=== PATIENT | female | born 1950 | race Caucasian/White ===

== ENCOUNTER 2020-01-18 09:19 | Outpatient (CLI) | payer MEDICARE, MEDICAID, SELFPAY ==
[2020-01-18 09:41] LABS: Basophils # 0.1 10^3/uL (0.0-0.1); Hemoglobin 13.1 g/dL (11.5-15.3); Lymphocytes # 1.9 10^3/uL (0.8-4.8); Lymphocytes % 22.1 %; Mean Corpuscular Hemoglobin 28.5 pg (28.0-34.0); Mean Corpuscular Volume 89.3 fL (81-99); Mean Platelet Volume 8.8 fL (7.4-10.4); Monocytes # 0.5 10^3/uL (0.2-0.9); Neutrophils # 6.2 10^3/uL (1.8-7.7); Neutrophils % 70.4 %; Nucleated Red Blood Cells % 0 %; Platelet Count 450 10^3/cmm (130-400); Red Blood Count 4.59 10^6/uL (4.1-5.3); Red Cell Distribution Width 13.1 % (12.1-15.1); White Blood Count 8.8 10^3/uL (4.0-10.0)
[2020-01-18 09:55] LABS: Anion Gap 16.8 (5-19); Blood Urea Nitrogen 13 mg/dL (8-23); Calcium 9.6 mg/dL (8.5-10.5); Carbon Dioxide 25 mmol/L (22-29); Chloride 97 mmol/L (98-107); Glucose 108 mg/dL (65-115); Osmolality Calculated 275 mOsm/kg (285-295); Potassium 4.8 mmol/L (3.5-5.1); Sodium 134 mmol/L (136-145)
--- NOTE | 2020-01-18 10:13 | ECG_ITS ---
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 Measurements Intervals [place] Rate: 67 P: 57 RI: 191 QRS: 53 QRSD: 77 T: 58 QT: 393 QTc: 417 Interpretive Statements SINUS RHYTHM Compared to ECG 02/21/2017 09:36:56 No significant changes Electronically Signed On 01-19-2020 13:56:45 CDT by Dennise Duarte M.D. [id number] f
== END 2020-01-18 09:20 | disposition home or self-care (01) ==
PROVIDERS: Family Provider Family Medicine; PCP Family Medicine; Visit Provider Specialist
DX: Z01.810 Encounter for preprocedural cardiovascular examination (principal)
CPT/HCPCS: 36415; 80048; 85025; 93005

== ENCOUNTER 2020-11-03 13:11 | Outpatient (CLI) | payer MEDICARE, MEDICAID, SELFPAY ==
--- NOTE | 2020-11-03 13:15 | MM_ITS ---
WS: [id number] BILATERAL DIGITAL SCREENING MAMMOGRAPHY WITH CAD CLINICAL INFORMATION: SCREENING HISTORY: Screening mammogram. No current complaints. COMPARISON: TECHNIQUE: Bilateral CC and MLO views. FINDINGS: The breasts are composed of heterogeneous fibroglandular density tissue, which can limit the detectio n of small underlying mass lesions. No suspicious mass, asymmetry, calcifications, or architectural d istortion. No evidence of malignancy. Stable bilateral lucent centered and dystrophic calcifications. MM/[place] [id number] IMPRESSION: BI-RADS: 2-Benign FOLLOW UP: 1 Year Follow-up Recommend return to annual screening mammography.
== END 2020-11-03 13:12 | disposition home or self-care (01) ==
LOC: RADSHAW 13:14
PROVIDERS: PCP Family Medicine; Visit Provider Family Medicine
DX: Z12.31 Encounter for screening mammogram for malignant neoplasm of breast (principal)
CPT/HCPCS: 77067

== ENCOUNTER 2020-12-03 09:04 | Emergency (ER) | payer MEDICARE, MEDICAID, SELFPAY ==
[2020-12-03] VITALS (7 sets, daily range): BP systolic 133–149; BP diastolic 63–75; PULSE 67–83; RESP 18–21; TEMP 36.6; O2SAT 89–95; BMI 28.8
--- NOTE | 2020-12-03 09:32 | XR_ITS ---
WS: [id number] Portable AP upright chest, 12/03/2020 Clinical Data: sob Comparison: PA and lateral chest, 08/13/2018. Findings: No nodules or masses are seen. The heart is enlarged. The pulmonary vascularity is not incr eased. No pneumothorax is seen. There is patchy opacity in the left lower lobe which could represent minimal pneumonia or atelectasis. There is a small left pleural effusion. There is calcification in the ascending aorta wall. Monitor leads are on the chest wall. There is an anterior cervical disc fus ion. There is minimal calcification over the right greater tuberosity. XR/XR chest 1V portable [id number] Impression: 1. Cardiomegaly with atherosclerotic changes of the before meals and aorta. 2. Patchy opacity in left lower lobe with small left effusion which could repre sent minimal pneumonia and/or atelectasis.
--- NOTE | 2020-12-03 09:32 | ECG_ITS ---
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 Measurements Intervals [place] Rate: 68 P: 54 WA: 169 QRS: 57 QRSD: 78 T: 66 QT: 392 QTc: 419 Interpretive Statements SINUS RHYTHM Compared to ECG 01/18/2020 10:14:56 No significant changes Electronically Signed On 12-04-2020 10:06:57 CDT by Dennise Duarte M.D. [id number]
--- NOTE | 2020-12-03 09:36 | W.ED.SOB ---
HPI - SOB/Dyspnea General: Chief Complaint: Shortness of Breath/Dyspnea Stated Complaint: DIFFICULTY BREATHING Time Seen by Provider: 12/03/20 09:29 History of Present Illness: HPI Narrative: 70-year-old female presents with some shortness of breath. Patient reports that she was battling some allergies yesterday patient has a history of COPD and is on inhalers. She reports that she started developing some chest tightness with shortness of breath yesterday. Patient reports she has had increased cough. No fever or chills. No chest pain. [facility] ED PFSH: Social History (Updated 12/03/20 @ 09:28 by Brian Garrido RN) Smoking and tobacco status: current every day smoker cigarettes Packs smoked per day: 0.5 Alcohol intake: current Alcohol intake frequency: holidays/special occasions only Course Vital Signs: Vital signs: Vital Signs Temperature 97.9 F 12/03/20 09:25 Pulse Rate 73 12/03/20 11:01 Respiratory Rate 21 H 12/03/20 11:01 Blood Pressure 149/75 12/03/20 11:01 Pulse Oximetry 93 12/03/20 11:01 MDM - SOB/Dyspnea MDM Narrative: Medical decision making narrative: Patient is feeling significantly better following her breathing treatment. Patient with beta white count and slight infiltrate left lower lobe. We will treat her with antibiotics, steroids. She will be discharged home. I recommend she follow with her primary care provider in 3 to 4 days for recheck of her symptoms. Lab Data: Attestation: I reviewed the patient's lab results. Labs: Lab Results 12/03/20 12/03/20 Range/Units 09:51 09:51 WBC 14.1 H (4.0-10.0) 10^3/ uL RBC 4.38 (4.1-5.3) 10^6/u L Hgb 13.3 (11.5-15.3) g/dL Hct 39.5 (37.0-47.0) % MCV 90.2 (81-99) fL MCH 30.4 (28.0-34.0) pg MCHC 33.7 (30.0-36.0) g/dL RDW 13.7 (12.1-15.1) % Plt Count 300 (130-400) 10^3/c mm MPV 9.4 (7.4-10.4) fL Neut % (Auto) 81.2 % Lymph % (Auto) 11.7 % [place] % (Auto) 6.0 % Eos % (Auto) 0.0 % Baso % (Auto) 0.6 % Neut # (Auto) 11.42 H (1.8-7.7) 10^3/u L Lymph # (Auto) 1.7 (0.8-4.8) 10^3/u L [place] # (Auto) 0.8 (0.2-0.9) 10^3/u L Eos # (Auto) 0.0 (0.0-0.8) 10^3/u L Baso # (Auto) 0.1 (0.0-0.1) 10^3/u L Nucleated RBC % (a uto) 0 % Nucleated RBCs # 0.0 /100WBC Sodium 137 (136-145) mmol/L Potassium 4.7 (3.5-5.1) mmol/L Chloride 100 (98-107) mmol/L Carbon Dioxide 26 (22-29) mmol/L Anion Gap 15.7 (5-19) BUN 13 (8-23) mg/dL Creatinine 0.6 (0.5-0.9) mg/dL GFR Calculation Not Reportable Glucose 135 H (65-115) mg/dL Calculated Osmolal ity 286 (285-295) mOsm/k g Calcium 8.6 (8.5-10.5) mg/dL Magnesium 2.1 (1.7-2.3) mg/dL Total Bilirubin 0.9 (0.15-1.2) mg/dL AST 13 (0-32) U/L ALT 16 (0-33) U/L Alkaline Phosphata se 88 (35-105) IU/L Total Protein 6.9 (6.6-8.7) g/dL Albumin 4.0 (3.5-5.2) g/dL Globulin 2.9 (1.3-4.6) g/dL Imaging Data^: CXR: Attestation: I personally reviewed and interpreted this imaging study as follows: My impression: mild infiltrate LLL Radiologist's impression: Portable AP upright chest, 12/03/2020 Clinical Data: sob Comparison: PA and lateral chest, 08/13/2018. Findings: No nodules or masses are seen. The heart is enlarged. The pulmonary vascularity is not increased. No pneumothorax is seen. There is patchy opacity in the left lower lobe which could represent minimal pneumonia or atelectasis. There is a small left pleural effusion. There is calcification in the ascending aorta wall. Monitor leads are on the chest wall. There is an anterior cervical disc fusion. There is minimal calcification over the right greater tuberosity. XR/XR chest 1V portable [id number] Impression: 1. Cardiomegaly with atherosclerotic changes of the before meals and aorta. 2. Patchy opacity in left lower lobe with small left effusion which could represent minimal pneumonia and/or atelectasis. EKG Data^: EKG 1: Attestation: I personally reviewed and interpreted this EKG as follows: EKG Interpretation Date: 12/03/20 EKG interpretation time: 10:03 Interpretation: HR 68, nsr, no st changes, normal ecg Discharge Plan Discharge Patient Disposition: Home Clinical Impression: Community acquired pneumonia Qualifiers: Laterality: left Lung location: lower lobe of lung Qualified Code(s): J18.9 - Pneumonia, unspecified organism Condition: Stable Prescriptions: New azithromycin 250 mg tablet See Rx Instructions .ROUTE .COMPLEX Qty: 6 RF: 0 prednisone 20 mg tablet 40 mg PO DAILY 3 Days Qty: 6 RF: 0 No Action paroxetine HCl 30 mg tablet 30 mg PO DAILY RF: 0 montelukast [Singulair] 10 mg tablet 10 mg PO DAILY RF: 0 lorazepam 0.5 mg tablet 0.5 mg PO DAILY PRN (Reason: sleep) RF: 0 budesonide-formoterol [Symbicort] 160-4.5 mcg/actuation HFA aerosol inhaler 2 puff INHALATION BID RF: 0 simvastatin 40 mg tablet 40 mg PO DAILY RF: 0 famotidine [Pepcid] 20 mg tablet 20 mg PO BID RF: 0 benazepril 40 mg tablet 40 mg PO DAILY RF: 0 aspirin [Adult Aspirin Regimen] 81 mg tablet,delayed release (DR/EC) 81 mg PO DAILY RF: 0 Otezla 30 mg tablet 30 mg PO BID RF: 0 albuterol sulfate [Ventolin HFA] 90 mcg/actuation HFA aerosol inhaler 2 puff INHALATION Q6H PRN (Reason: shortness of breath or wheezing) RF: 0 nitroglycerin [Nitrostat] 0.4 mg tablet, sublingual 0.4 mg SUBLINGUAL Q5M PRN (Reason: chest pain) RF: 0 metoprolol tartrate 25 mg tablet 12.5 mg PO BID Qty: 90 RF: 3 isosorbide mononitrate 30 mg tablet extended release 24 hr 30 mg PO DAILY Qty: 90 RF: 3 Discharge Orders: Discharge ED (Routine); Ordered 12/03/20 Ordered By: Issac Clinton Referrals: Cezar oLrenz MD [Primary Care Provider] - Discharge Diet: Usual diet Discharge Activity: Resume usual activity Patient Instructions: Community-acquired Pneumonia (ED), Opioid Safety Activity Restrictions/Additional Instructions: Follow-up with your primary care provider in 3 to 4 days to recheck your symptoms Use your albuterol nebulizer every 4 hours x24 hours then as needed Coding Level of Care Code ED Punch Operator for Jo Ann Reeves
[2020-12-03 10:01] LABS: Basophils # 0.1 10^3/uL (0.0-0.1); Basophils % 0.6 %; Hematocrit 39.5 % (37.0-47.0); Hemoglobin 13.3 g/dL (11.5-15.3); Lymphocytes # 1.7 10^3/uL (0.8-4.8); Lymphocytes % 11.7 %; Mean Corpuscular HGB Conc 33.7 g/dL (30.0-36.0); Mean Corpuscular Hemoglobin 30.4 pg (28.0-34.0); Mean Corpuscular Volume 90.2 fL (81-99); Mean Platelet Volume 9.4 fL (7.4-10.4); Monocytes # 0.8 10^3/uL (0.2-0.9); Neutrophils # 11.42 10^3/uL (1.8-7.7); Neutrophils % 81.2 %; Nucleated Red Blood Cells % 0 %; Platelet Count 300 10^3/cmm (130-400); Red Blood Count 4.38 10^6/uL (4.1-5.3); Red Cell Distribution Width 13.7 % (12.1-15.1); White Blood Count 14.1 10^3/uL (4.0-10.0)
[2020-12-03] MEDS: ipratropium-albuterol 3 mL Neb INHALATION (10:16)
[2020-12-03 10:33] LABS: Alanine Aminotransferase 16 U/L (0-33); Alkaline Phosphatase 88 IU/L (35-105); Anion Gap 15.7 (5-19); Aspartate Amino Transferase 13 U/L (0-32); Blood Urea Nitrogen 13 mg/dL (8-23); Calcium 8.6 mg/dL (8.5-10.5); Carbon Dioxide 26 mmol/L (22-29); Chloride 100 mmol/L (98-107); Globulin 2.9 g/dL (1.3-4.6); Glucose 135 mg/dL (65-115); Magnesium 2.1 mg/dL (1.7-2.3); Osmolality Calculated 286 mOsm/kg (285-295); Potassium 4.7 mmol/L (3.5-5.1); Sodium 137 mmol/L (136-145); Total Bilirubin 0.9 mg/dL (0.15-1.2); Total Protein 6.9 g/dL (6.6-8.7)
== END 2020-12-03 11:02 | disposition home or self-care (01) ==
PROVIDERS: Emergency Provider Student in an Organized Health Care Education/Training Program; PCP Family Medicine
DX: J18.9 Pneumonia, unspecified organism (principal); Z79.82 Long term (current) use of aspirin; F17.210 Nicotine dependence, cigarettes, uncomplicated
CPT/HCPCS: 71045; 80053; 83735; 85025; 93005; 94640; 96374; 99284; J2930; J7611

== ENCOUNTER 2020-12-31 10:03 | Outpatient (CLI) | payer MEDICARE, MEDICAID, SELFPAY ==
--- NOTE | 2020-12-31 10:15 | XR_ITS ---
WS: [id number] Exam: XR chest 2V* [id number] Date/Time of Exam: 12/31/2020 10:18 AM Reason For Exam: rule out pneumonia Comparison 12/03/2020. The lungs are fully expanded and clear. Heart size is top limits normal. No pleural effusions. The me diastinum and bony thorax are unremarkable. Anterior fusion of the lower cervical spine. XR/XR chest 2V* [id number] IMPRESSION: 1. No acute cardiopulmonary finding.
== END 2020-12-31 10:04 | disposition home or self-care (01) ==
LOC: RAD 10:13
PROVIDERS: PCP Family Medicine; Visit Provider Internal Medicine Pulmonary Disease
DX: J18.9 Pneumonia, unspecified organism (principal)
CPT/HCPCS: 71046

== ENCOUNTER → 2021-01-15 10:25 | Outpatient (BNVA) | payer MEDICARE, MEDICAID, SELFPAY | PROVIDERS: PCP Family Medicine; Visit Provider Internal Medicine Pulmonary Disease | DX: J44.9 Chronic obstructive pulmonary disease, unspecified (principal) | CPT/HCPCS: 87635 ==

== ENCOUNTER 2021-01-21 10:43 | Outpatient (CLI) | payer MEDICARE, MEDICAID, SELFPAY ==
--- NOTE | 2021-01-21 08:56 | PFTS_ITS ---
Date of Study:01/21/21 Date of Dictation: 01/23/2021 MECHANICS: Post bronchodilator Forced vital capacity (FVC) is reduced. Post bronchodilator Forced expiratory volume in one second (FEV1) is severely reduced 39% FEV1/FVC is reduced. There is no significant response to bronchodilators. FLOW VOLUME LOOP: Sloping of expiratory limb suggestive of severe air way obstruction LUNG VOLUMES: Total lung capacity (TLC) is normal. Residual volume (RV) is slightly increased suggestive of mild air trapping. DIFFUSING CAPACITY FOR CARBON MONOXIDE: severely reduced 33 % . INTERPRETATION: The pulmonary function tests consistent with severe obstructive ventilatory defect with no significant bronchodilator response. There is mild air trapping on lung volumes and severe gas transfer defect. Overall suggestive of moderate COPD likley emphysema. Clinical correlation recommended. MTDD
--- NOTE | 2021-01-21 10:53 | CT_ITS ---
WS: [id number] LDCT LUNG CANCER SCREENING HISTORY: Evaluate for lung nodules TECHNIQUE: Axial imaging performed from the apices to 1 cm below the costophrenic angles. Coronal and sagittal reformats are submitted with axial MIP series. All CT scans at [facility] use at least one of these dose optimization techniques: automated exposure control; mA and/or kV adjustment per patient size (includes targeted exams where dose is matched to clinical indication); or iterativ e reconstruction. DLP: 81.0 mGy.cm DIvol: 2.53 mGy COMPARISON: None available. Diagnostic quality: Satisfactory Lung Nodules: There are small micronodules scattered throughout both lungs predominantly within the p eriphery. No nodules greater than 3 mm are identified. Lungs: Hyperinflated lungs from emphysema. Benign granuloma in the anterior LEFT upper lobe. Heart: Moderately enlarged heart. No pericardial effusion. Extensive vascular calcifications in the n ative coronary arteries. Other findings: Dilated pulmonary artery. Extensive atherosclerosis within the aorta. Small mediastin al and hilar lymph nodes. Small esophageal hiatal hernia. Advanced degenerative changes in the disc i n the mid thoracic spine. CT/CT lung screening [id number] IMPRESSION: LUNG-RADS: 1S-Negative with Significant Findings FOLLOW UP: 12 Month: Continue annual screening with LDCT OTHER FINDINGS (S MODIFIER): Extensive atherosclerosis within the thoracic aort a and coronary arteries. Consider cardiovascular evaluation. Pulmonary hypertension.
[2021-01-21 11:45] VITALS: O2SAT 90; O2SAT 93
== END 2021-01-21 10:44 | disposition home or self-care (01) ==
LOC: RAD 10:46
PROVIDERS: PCP Family Medicine; Visit Provider Internal Medicine Pulmonary Disease
DX: Z12.2 Encounter for screening for malignant neoplasm of respiratory organs (principal); F17.200 Nicotine dependence, unspecified, uncomplicated; I70.0 Atherosclerosis of aorta; K44.9 Diaphragmatic hernia without obstruction or gangrene; J44.9 Chronic obstructive pulmonary disease, unspecified
CPT/HCPCS: 71271; 94060; 94726; 94729; 94760

== ENCOUNTER 2021-02-24 13:12 | Outpatient (CLI) | payer MEDICARE, MEDICAID, SELFPAY ==
--- NOTE | 2021-02-24 13:30 | CT_ITS ---
WS: [id number] CT ANGIOGRAPHY OF THE ABDOMINAL AORTA WITH RUNOFF TO THE ANKLES HISTORY: I73.9 - Peripheral vascular disease, unspecified TECHNIQUE: Arterial injection is performed during imaging to evaluate the aorta and runoff vessels to the ankles. MIP and volume rendering imaging has also been performed. All images are reviewed. All C T scans at [facility] use at least one of these dose optimization techniques: automated ex posure control; mA and/or kV adjustment per patient size (includes targeted exams where dose is match ed to clinical indication); or iterative reconstruction. Contrast: Omnipaque 350; 95 mL IV. DLP: 1398.99 mGycm COMPARISON: None available. Abdominal aorta: Scattered calcified plaque and intimal thickening within a nondilated aorta. Calcifi ed plaque at the origin of the celiac axis with no high-grade stenosis. Dense calcified plaque involv ing the proximal SMA with at least 50% stenosis. Calcified plaque at the origins of the renal arterie s bilaterally. Calcified plaque at the origin of the JAZMIN. RIGHT lower extremity arteries: Short segment area of high-grade stenosis involving the proximal and mid RIGHT common iliac artery. Multifocal areas of dense calcified plaque continues into the internal and external iliac arteries with significant stenoses. Dense calcified plaque with stenoses least 50 % in the common femoral artery. Small caliber SFA and deep profunda with dense calcified plaque with multiple areas of stenosis. Stenosis continues through Hans's canal and popliteal artery. There is three-vessel runoff to the ankle. Caliber of the arteries below the knee are small. LEFT lower extremity arteries: Heavy calcified plaque in the common, internal and external iliac barby neela with stenoses. Stenosis near 50-60%. Small caliber LEFT SFA. High-grade stenosis proximal SFA. M ultiple areas of stenosis throughout the SFA through Hans's canal. At times the lumen is poorly vis ualized and may be completely occluded with collaterals. At least 50% stenosis in the popliteal arter y. Small caliber but three-vessel runoff to the ankles. Liver and spleen are negative. Contracted gallbladder. Mildly prominent pancreatic duct with no mass identified. Adrenal glands are normal. Kidneys are enhancing normally. No adenopathy or ascites. Well -distended urinary bladder. Atrophic uterus and ovaries as expected. Sclerosis within the L3 vertebra l bodies probably from a healing osteoporotic compression fracture which is mild at 10%. CT/CT angio abd aorta runof [id number] IMPRESSION: 1. Numerous bilateral areas of significant stenosis involving the arteries of the lower extremities. 2. Greater than 70% stenosis RIGHT proximal and mid common iliac artery with additional multi focal areas of significant stenosis through the internal and e xternal iliac arteries. Multifocal stenoses continued through the femoral arter y and the popliteal artery. 3. At least moderate stenosis approaching 60% involving the LEFT common, inter nal and external iliac arteries. 4. Small caliber LEFT femoral artery with significant stenoses at multiple lev els throughout the SFA. There may be a few areas of occlusions which are obscur ed by the dense calcified plaque. 5. Small caliber arteries below the knees but the arteries are patent to the a nkles. 6. Moderate atherosclerotic changes within the abdominal aorta. Dense calcifie d plaque involving the celiac axis, SMA and renal arteries. Suspect a significa nt stenosis involving the SMA.
[2021-02-24 13:54] LABS: Blood Urea Nitrogen 14 mg/dL (8-23)
[2021-02-24] MEDS: iohexol 350 mg/mL 100 mL Btl IV (14:11)
== END 2021-02-24 13:13 | disposition home or self-care (01) ==
PROVIDERS: PCP Family Medicine; Visit Provider Internal Medicine Cardiovascular Disease
DX: I73.9 Peripheral vascular disease, unspecified (principal); I70.8 Atherosclerosis of other arteries
CPT/HCPCS: 75635; 82565; 84520; Q9967

== ENCOUNTER → 2021-05-15 09:11 | Outpatient (BNVA) | payer MEDICARE, MEDICAID, SELFPAY | PROVIDERS: Absent Provider Internal Medicine Cardiovascular Disease; PCP Family Medicine; Referring Provider Internal Medicine Cardiovascular Disease; Visit Provider Internal Medicine Cardiovascular Disease | DX: Z01.818 Encounter for other preprocedural examination (principal); I77.9 Disorder of arteries and arterioles, unspecified; Z20.822 Contact with and (suspected) exposure to COVID-19 | CPT/HCPCS: 80048; 85025; 85610; 87635; 94626 ==

== ENCOUNTER 2021-05-19 06:04 | Outpatient (CLI) | payer MEDICARE, MEDICAID, SELFPAY ==
[2021-05-19] VITALS (18 sets, daily range): BP systolic 130–183; BP diastolic 62–102; PULSE 63–71; RESP 14–20; TEMP 36.7; O2SAT 92–97; BMI 28.6
--- NOTE | 2021-05-19 06:30 | XACV_ITS ---
Wt: 76 kg BSA: 1.87 m2 Any Known Allergies: No known allergies Gender: Female : 1950 Exam Type: Invasive Peripheral Vascular Procedure(s): Procedure Description: Peripheral Cath Diagnostic Procedure Procedure Description: Abdominal aortic angiography Procedure Description: Lower extremities' angiography Exam Priority: Routine Dominique SCRUGGS; Jennifer Reason for self angiogram: Lifestyle limiting claudication, abnormal noninvasive studyAbdominal aortic angiogram: No aneurysm noted no significant stenosis of the abdominal aorta. Bilateral renal arteries were without any significant stenosis.Bilateral common iliac arteries without stenosis. Bilateral internal and external iliac arteries has luminal irregularities. Bilateral common femoral arteries luminal irregularities. Bilateral profunda femoral arteries has luminal irregularities. Right SFA has luminal irregularities. Left SFA has mild ostial disease however proximal segment is small caliber vessel with mild to moderate disease but with reasonably good flow. Bilateral popliteal artery has luminal irregularities. Bilateral tibioperoneal trunk has luminal irregularity. Right SFA is occluded in the distal segment. To good vessel runoff noted proximal right posterior tibial vessel has long moderate lesion, right peroneal artery has luminal irregularity. Overall good two-vessel runoff was noted on the right side. Left side three-vessel runoff was noted below the knee.. Recommendations 1-Return to inpatient for close monitoring and routine cath care 2-Risk factor modification for secondary prevention 3-Statin and aspirin 81 mg life--long, if tolerated 4-Continue optimal medical management 5-Follow up with Dr. Fox in four weeks and your primary care in 10 days. Hemodynamic Data Phase:Rest AO : 3.0 / -3.0 ( 0.0 ) @ 5:55:00 AM / ( 0.0 ) @ 5:56:00 AM 44.0 / -12.0 ( 4.0 ) @ 6:26:00 AM Access Site Site: Left Femoral artery Sheath Size: 6 Fr Hemost... Method: Mynx Hemost... Success: Successful Procedure Details Findings Procedure Consent Obtained. Admit Source: Out Patient. Pre-Procedure Time Out. Identified patient by full name and date of as verbalized by the patient/guarantor. Does the consent match the physician's order: Yes. Accurate & Complete Informed Consent: Yes. Inpatient/Outpatient History & Physical on Chart: Yes. If H&P is completed, is and addenduem needed: No; If yes, is the addendum complete: N/A. Visualize and Verify Site with Patient/Guarantor: N/A. Relevant Radiology Images available: N/A. The risks, benefits, and alternatives of sedation and/or procedure were discussed by physician. The patient agrees to continue. Procedure started. Correct patient, site and procedure confirmed by cath team. Current diagnosis: PAD, CLAUDICATION. PERRLA. 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 Lungs clear x 5 lobes. IV Site on Arrival: 20 gauge in the left anticubital. IV Fluids: 0.9% NaCl at KVO. 0 mL infused prior to labelling machine operator. Pre Procedural Pulses: bilateral dorsalis pedis was Doppled. Pre Procedural Pulses: bilateral radial was 3+. Pre Procedural Pulses: bilateral posterior tibial was 2+. Oxygen started at 2liters/min via nasal canula. bilateral groins was prepped with chloroprep then draped in the usual sterile fashion. Physician notified. Baseline sample Acquired. HR: 70 BPM. Baseline sample Acquired. HR: 66 BPM. Physician arrived. Physician scrubbed in. Time out performed with cath team. Immediate Pre-Procedure Time Out. Correct Patient: Yes; Correct Procedure: Yes; Correct Site: Yes; Correct Patient Position: Yes; Correct Supplies: Yes; Dried Flammable Prep: Yes; Blood Products Available: N/A;. Lidocaine 1% infiltrated to the left groin. Arterial access obtained with micropuncture set. A 5FrFr UF catheter in over wire. Pigtail postioned above the bifurcation of the iliacs. Aortagram performed @ 10 mL/sec for a total of 30 mL. Procedure started. Glidewire inserted. Glidewire advanced down the right SFA. UF catheter removed over the wire. Seeker inserted to the Popliteal Right. Glidewire removed. Hand Injection of the trifucation vessels using DSA technique. Hand Injection of the trifucation vessels using DSA technique. Seeker removed over the wire. Left common femoral selected and arteriogram with runoff performed @ 10 mL/sec for a total of 30 mL. Physician review of films. A Mynx was successful obtaining hemostatsis at the Left Femoral artery insertion site. Mynx placed without complications. No signs or symptoms of hematoma noted. Sterile dressing applied per usual sterile fashion. Post Procedure: Pulses reassessed and unchanged. PERRLA. 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 No VTE prophylaxis required. Medication's Wasted: Lidocaine 1% = 10 mL. Medication's Wasted: Heparin = 1000 units. Total IV fluids: 43 mL. Fluoro: 1:02. Contrast type used: Visipaque 320 mgI/mL, 100 mL bottle. [id number]. Post-op diagnosis: Luminal Irregularities of iliacs and sfa. 2 vessel below the knee runoff. Complications: None. Estimated blood loss: 5mL-10mL. Procedure completed. Patient transferred by bed to CPRU. Vital chart was stopped. Procedure Medications Start: 8:00 AM Stop: 8:00 AM Medication: Versed Amount: 1 mg Route: I.V. Start: 8:00 AM Stop: 8:00 AM Medication: Fentanyl Amount: 50 mcg Route: I.V. Start: 8:32 AM Stop: 8:32 AM Medication: Versed Amount: 1 mg Route: I.V. Start: 8:32 AM Stop: 8:32 AM Medication: Fentanyl Amount: 50 mcg Route: I.V. I, the attending physician, have reviewed and verified all procedure medications. Yes, all medications given per verbal order History/Risk Factors Hypertension: Yes Dyslipidemia: Yes Peripheral Arterial Disease (PAD): Yes Obesity: No Renal Disease: No Tobacco Use: Current/Recent(w/in 1 year) Prior Interventions PCI: No CABG: No Valve Surgery: No Report Signatures Finalized by Zen Fox MD on 05/31/2021 07:12 PM
[2021-05-19] MEDS: diphenhydrAMINE 50 mg Capsule PO (06:48)
--- NOTE | 2021-05-19 07:46 | W.PM.OPSFHP ---
Same Day Surgery H&P Indication for Procedure/HPI DATE OF PROCEDURE: May 19, 2021 CHIEF COMPLAINT/INDICATIONFOR SURGICAL PROCEDURE: Lifestyle limiting claudication more on right than left, abnormal CTA showing high-grade stenosis in iliacs and SFA bilaterally PREOP DIAGNOSIS: Lifestyle limiting claudication more on right than left PLANNED PROCEDRUE: Operation Date: 05/19/21 07:00 Proposed Procedures p Peripheral Diagnostic(Bilateral) - Zen Fox MD 71-year-old female past medical history significant for hypertension hyperlipidemia peripheral arterial disease COPD prior intervention to both legs in 2017 for worsening of claudication started on conservative management including cilostazol. Patient failed conservative management and continues to do worsen now to the point that she cannot walk barely more than 50 feet before she has to sit down and leg starts giving up. It is the reason patient today brought in for peripheral angiogram she is complaining more claudication on the right than left CT is suggestive of moderate to high-grade stenosis in the right common/external iliac and SFA. Today we will plan to go from the left common femoral and prior to fix the right side. Patient has been explained all risk benefit and alternative for the procedure. She understand risk for stroke contrast-induced nephropathy major minor bleed urgent emergent vascular surgery perforation infection hematoma. She would like to proceed with it. Medications/Allergies* Home Medications Medication Instructions Recorded Confirmed Type albuterol sulfate 90 mcg/actuation 2 puff INHALATION Q6H PRN 03/19/20 05/19/21 History aerosol inhaler apremilast 30 mg tablet 30 mg PO BID 03/19/20 05/19/21 History aspirin 81 mg tablet,delayed 81 mg PO DAILY 03/19/20 05/19/21 History release benazepril 40 mg tablet 40 mg PO DAILY 03/19/20 05/19/21 History lorazepam 0.5 mg tablet 0.5 mg PO DAILY PRN 03/19/20 05/19/21 History nitroglycerin 0.4 mg sublingual 0.4 mg SUBLINGUAL Q5M PRN 03/19/20 05/19/21 History tablet paroxetine HCl 30 mg tablet 30 mg PO DAILY 03/19/20 05/19/21 History simvastatin 40 mg tablet 40 mg PO DAILY 03/19/20 05/19/21 History cholecalciferol (vitamin D3) 25 25 mcg PO DAILY 12/31/20 05/19/21 History mcg (1,000 unit) capsule omega-3 fatty acids 1,000 mg 1,000 mg PO DAILY 02/09/21 05/19/21 History capsule Allergies/Adverse Reactions Allergy/AdvReac Type Severity Reaction Status Date / Time No Known Allergies Allergy Verified 02/11/21 09:32 Current Medications: Generic Name Dose Route Start Last Admin Trade Name Elizabet PRN Reason Stop Dose Admin Sodium Chloride 1,000 mls @ 50 mls/hr 05/19/21 06:30 05/19/21 06:48 Sodium Chloride 0.9% IV 05/20/21 02:29 Not Given .Q20H ONE Pertinent History/Comorbid Conditions* Medical History (Updated 02/09/21 @ 16:40 by Zen Fox MD) History of COPD History of hypertension Hx of sleep apnea Peripheral arterial occlusive disease Social History Quit status (tobacco): considering quitting Second hand smoke exposure: No Smoking risk assessment/counseling performed?: Yes Alcohol intake: current Alcohol intake frequency: holidays/special occasions only Lives independently: Yes Household members: none Marital status: Single Current occupational status: retired Pets and animals: No History of recent travel: No Current gender identity: Female Pertinent Exam Findings alert, oriented x 3 and clear to auscultation bilaterally Conscious Sedation Assessment PATIENT ASSESSED PRIOR TO SEDATION, WITH NO CHANGE NOTED: Yes AIRWAY EVAL/ANESTHESIA PLAN: ASA II, Risks, benefits & alternatives of sedation and/or procedure discussed and Patient agrees to continue as planned Recommendations Surgery/Procedure today Coding Level of Care Code Acute [employer]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
--- NOTE | 2021-05-19 09:14 | PC.NURSE ---
recovery received pt from chemistry lab instructor post diagnostic peripheral. closure device used to left groin and will be monitored per protocol. pt drowsy but able to be awakened. pt educated on left leg restrictions and will continue to educate throughout recovery. plan to recover for 4 hours and dc from cpru.
--- NOTE | 2021-05-19 09:31 | PC.NURSE ---
left groin has dry dressing. no hematoma noted. will continue to monitor throughout recovery.
== END 2021-05-19 13:02 | disposition home or self-care (01) ==
PROVIDERS: PCP Family Medicine; Visit Provider Internal Medicine Cardiovascular Disease
DX: I73.9 Peripheral vascular disease, unspecified (principal)
CPT/HCPCS: 36415; 75625; 75716; C1760; C1769; C1887; C1894; J1644; J2250; J3010; J7030; Q0163; Q9967

== ENCOUNTER 2021-06-18 11:01 | Outpatient (RCR) | payer MEDICARE, MEDICAID, SELFPAY | END 2021-07-17 23:59 | disposition home or self-care (01) | LOC: PULRHB 11:01 | PROVIDERS: PCP Family Medicine; Visit Provider Internal Medicine Pulmonary Disease | DX: J44.9 Chronic obstructive pulmonary disease, unspecified (principal) | CPT/HCPCS: 94618 ==

== ENCOUNTER 2021-07-18 06:00 | Outpatient (RCR) | payer MEDICARE, MEDICAID, SELFPAY | END 2021-08-17 23:59 | disposition home or self-care (01) | LOC: PULRHB 06:00 | PROVIDERS: PCP Family Medicine; Visit Provider Internal Medicine Pulmonary Disease | DX: J44.9 Chronic obstructive pulmonary disease, unspecified (principal) | CPT/HCPCS: 94626; G0424 ==

== ENCOUNTER 2021-08-18 06:00 | Outpatient (RCR) | payer MEDICARE, MEDICAID, SELFPAY | END 2021-09-14 23:59 | disposition home or self-care (01) | LOC: PULRHB 06:00 | PROVIDERS: PCP Family Medicine; Visit Provider Internal Medicine Pulmonary Disease | DX: J44.9 Chronic obstructive pulmonary disease, unspecified (principal) | CPT/HCPCS: 94626; G0424 ==

== ENCOUNTER 2021-09-15 06:00 | Outpatient (RCR) | payer MEDICARE, MEDICAID, SELFPAY | END 2021-10-15 23:59 | disposition home or self-care (01) | LOC: PULRHB 06:00 | PROVIDERS: PCP Family Medicine; Visit Provider Internal Medicine Pulmonary Disease | DX: J44.9 Chronic obstructive pulmonary disease, unspecified (principal) | CPT/HCPCS: 94626 ==

== ENCOUNTER → 2021-10-12 13:40 | Outpatient (BNVA) | payer MEDICARE, MEDICAID, SELFPAY | PROVIDERS: PCP Family Medicine; Visit Provider Nurse Practitioner Family | DX: I77.9 Disorder of arteries and arterioles, unspecified (principal); Z86.79 Personal history of other diseases of the circulatory system; Z87.891 Personal history of nicotine dependence | CPT/HCPCS: 99213; 99214 ==

== ENCOUNTER → 2021-12-10 12:51 | Outpatient (BNVA) | payer MEDICARE, MEDICAID, SELFPAY | PROVIDERS: PCP Family Medicine; Visit Provider Nurse Practitioner Family | DX: R06.00 Dyspnea, unspecified (principal); Z87.891 Personal history of nicotine dependence | CPT/HCPCS: 99214 ==

== ENCOUNTER 2021-12-29 03:26 | Observation (INO) | payer MEDICARE, MEDICAID, SELFPAY ==
[2021-12-29] VITALS (9 sets, daily range): BP systolic 94–230; BP diastolic 56–133; PULSE 71–95; RESP 16–20; TEMP 36.7–37.3; O2SAT 90–98; BMI 29.2
--- NOTE | 2021-12-29 03:46 | CTR_ITS ---
PROCEDURE INFORMATION: Exam: CT Abdomen And Pelvis Without Contrast Exam date and time: 12/29/2021 4:02 AM Age: 71 years old Clinical indication: Nausea; Abdominal pain; Localized; Left lower quadrant (llq); Additional info: Llq pain TECHNIQUE: Imaging protocol: Computed tomography of the abdomen and pelvis without contrast. Radiation optimization: All CT scans at this facility use at least one of these dose optimization techniques: automated exposure control; mA and/or kV adjustment per patient size (includes targeted exams where dose is matched to clinical indication); or iterative reconstruction. COMPARISON: [facility] Abdomen Limited 05/03/2019 8:12 AM RADIATION DOSE METRICS: Total DLP (mGy-cm): 1402.7 FINDINGS: Lungs: Minimal bibasilar atelectasis or scarring. Heart: Coronary artery calcifications. Liver: No acute abnormality on noncontrast imaging. Gallbladder and bile ducts: No acute abnormality. No calcified stones. No ductal dilation. Pancreas: No acute abnormality. No ductal dilation. Spleen: Punctate splenic calcified granulomas. Adrenal glands: No acute abnormality. No mass. Kidneys and ureters: No definite renal calculi. Moderate left hydroureteronephrosis without definite distal ureteral calculus. Stomach and bowel: No significant large or small bowel distention. No evidence of diverticulitis. Appendix: Grossly normal nondilated visualized appendix. Intraperitoneal space: No significant fluid collection. No free air. Vasculature: Vascular patency cannot be assessed on noncontrast imaging. Diffuse atherosclerotic vascular calcification. No aortic aneurysm. Lymph nodes: No enlarged lymph nodes. Urinary bladder: Unremarkable as visualized. No bladder calculi. Reproductive: Unremarkable as visualized. Bones/joints: Multilevel spondylosis, degenerative bony changes and chronic mild L3 superior endplate compression deformity. Soft tissues: No significant soft tissue abnormalities. CT/CT kidney stone [id number] IMPRESSION: 1. Moderate left hydroureteronephrosis without definite distal ureteral calculus. Differential diagnosis includes recent stone passage versus vesicoureteral reflux with possible pyelonephritis versus occult radiolucent distal urinary calculus, stricture or urothelial lesion. 2. Atherosclerotic vascular disease including coronary artery disease.
--- NOTE | 2021-12-29 03:52 | W.ED.ABDPA2 ---
HPI - Abdominal Pain General: Chief Complaint: Abdominal Pain Stated Complaint: abd pain Time Seen by Provider: 12/29/21 03:33 Source: patient Mode of arrival: ambulatory Limitations: no limitations History of Present Illness: 71-year-old female who states she been having left lower quadrant abdominal pain over the last 6 to 8 hours states that is worsened over the last 3 hours. States that sharp in nature in her left lower quadrant rates it an 8 out of 10 she has had some nausea no vomiting states seems to radiate into her groin. She denies any fever. Denies any recent illness denies any chest pain. Associated Symptoms: Denies chills, dysuria and fever(s) Review of Systems Const: Denies: fever(s), chills, body aches or change in appetite Eyes: Denies: blurry vision or eye discomfort ENMT: Denies: throat pain or dental pain Card: Denies: chest pain Resp: Denies: dyspnea GI: Reports: abdominal pain : Denies: dysuria Musc: Denies: neck pain or back pain Skin/Breast: Denies: rash Neuro: Denies: headache(s) Psych: Denies: depression Ganesh/Lymph: Denies: easy bruising All/Imm: Denies: urticaria PFSH ED PFSH: Medical History Encounter for screening for lung cancer History of COPD History of hypertension Hx of anxiety disorder Hx of colonic polyps Hx of gastroesophageal reflux (GERD) Hx of hyperlipidemia Hx of hyperparathyroidism Hx of irritable bowel syndrome Hx of sleep apnea Peripheral arterial occlusive disease Surgical History History of bilateral cataract extraction Hx of carpal tunnel repair Hx of colonoscopy Hx of esophagogastroduodenoscopy Hx of parathyroidectomy Hx of tubal ligation Social History Smoking and tobacco status: former smoker Quit status (tobacco): considering quitting Second hand smoke exposure: No Smoking risk assessment/counseling performed?: Yes Alcohol intake: current Alcohol intake frequency: holidays/special occasions only Lives independently: Yes Household members: none Marital status: Single Current occupational status: retired Pets and animals: No History of recent travel: No Current gender identity: Female Physical Exam Const: COMMON NORMALS: no acute distress, patient oriented x3 and healthy appearing HENMT: COMMON NORMALS: normocephalic and atraumatic HEAD & SCALP: normocephalic and atraumatic Eye: COMMON NORMALS: Equal, round and reactive pupils present and EOMs intact bilaterally PUPIL: Yes Equal, round and reactive pupils present Neck/C-Spine: COMMON NORMALS: full ROM and supple Chest: COMMONS NORMALS: normal inspection of the chest and normal palpation of entire chest wall Resp: COMMON NORMALS: normal respiratory effort, No retractions, No use of accessory muscles and clear to auscultation bilaterally AUSCULTATION: clear to auscultation bilaterally Cardio: COMMON NORMALS: regular rate, regular rhythm and No murmurs present (Cardio) RATE: regular rate RHYTHM: regular rhythm GI: COMMON NORMALS: Normal to inspection, nondistended, normoactive bowel sounds present, Soft to palpation and no masses PALPATION: Yes Soft to palpation and Yes Tenderness to palpation present (GI) Details: LLQ Extremity: COMMON NORMALS: normal to inspection and full ROM Neuro: COMMON NORMALS: patient oriented x3, moves all extremities and no focal motor deficits Psych: COMMON NORMALS: mental status grossly normal, Normal thought process present and cooperative THOUGHT PROCESS: Normal thought process present Skin: COMMON NORMALS: no rashes or lesions noted and no wounds GENERAL SKIN EXAM: no rashes or lesions noted Course Vital Signs: Vital signs: Vital Signs Temperature 98.2 F 12/29/21 03:46 Pulse Rate 87 12/29/21 04:32 Respiratory Rate 16 12/29/21 04:32 Blood Pressure 201/93 12/29/21 04:32 Pulse Oximetry 95 12/29/21 04:32 MDM - Abdominal Pain Medical Decision Making Patient presents with flank pain patient CT scan did show hydronephrosis with no definite stone. Patient either has a radiolucent stone or stricture or recently passed stone she does have an elevated white count along with appearance of a cystitis spoke to urologist he recommended admission with IV antibiotics to follow I spoke to hospitalist who is admitting urologist Dr. Aceves is consulted. Lab Data : 12/29/21 03:56 12/29/21 04:20 Labs/Radiology: Radiology Impressions Abdomen/Pelvis CT 12/29/21 03:46 IMPRESSION: 1. Moderate left hydroureteronephrosis without definite distal ureteral calculus. Differential diagnosis includes recent stone passage versus vesicoureteral reflux with possible pyelonephritis versus occult radiolucent distal urinary calculus, stricture or urothelial lesion. 2. Atherosclerotic vascular disease including coronary artery disease. Laboratory Results WBC 15.5 10^3/uL (4.0-10.0) H 12/29/21 03:56 RBC 4.98 10^6/uL (4.1-5.3) 12/29/21 03:56 Hgb 14.6 g/dL (11.5-15.3) 12/29/21 03:56 Hct 40.8 % (37.0-47.0) 12/29/21 03:56 MCV 81.9 fl (81-99) 12/29/21 03:56 MCH 29.3 pg (28.0-34.0) 12/29/21 03:56 MCHC 35.8 g/dL (30.0-36.0) 12/29/21 03:56 RDW 13.6 % (12.1-15.1) 12/29/21 03:56 Plt Count 239 10^3/cmm (130-400) 12/29/21 03:56 MPV 10.9 fL (7.4-10.4) H 12/29/21 03:56 Neut % (Auto) 79.4 % 12/29/21 03:56 Lymph % (Auto) 12.9 % 12/29/21 03:56 [place] % (Auto) 6.3 % 12/29/21 03:56 Eos % (Auto) 0.1 % 12/29/21 03:56 Baso % (Auto) 0.8 % 12/29/21 03:56 Neut # (Auto) 12.26 10^3/uL (1.8-7.7) H 12/29/21 03:56 Lymph # (Auto) 2.0 10^3/uL (0.8-4.8) 12/29/21 03:56 [place] # (Auto) 1.0 10^3/uL (0.2-0.9) H 12/29/21 03:56 Eos # (Auto) 0.0 10^3/uL (0.0-0.8) 12/29/21 03:56 Baso # (Auto) 0.1 10^3/uL (0.0-0.1) 12/29/21 03:56 Nucleated RBC % (auto) 0 % 12/29/21 03:56 Nucleated RBCs # 0.0 /100WBC 12/29/21 03:56 Sodium 136 mmol/L (136-145) 12/29/21 04:20 Potassium 4.4 mmol/L (3.5-5.1) 12/29/21 04:20 Chloride 96 mmol/L (98-107) L 12/29/21 04:20 Carbon Dioxide 28 mmol/L (22-29) 12/29/21 04:20 Anion Gap 16.4 (5-19) 12/29/21 04:20 BUN 16 mg/dL (8-23) 12/29/21 04:20 Creatinine 0.7 mg/dL (0.5-0.9) 12/29/21 04:20 GFR Calculation Not Reportable 12/29/21 04:20 Glucose 132 mg/dL (65-115) H 12/29/21 04:20 Calculated Osmolality 285 mOsm/kg (285-295) 12/29/21 04:20 Calcium 9.3 mg/dL (8.5-10.5) 12/29/21 04:20 Total Bilirubin 0.5 mg/dL (0.15-1.2) 12/29/21 04:20 AST 17 U/L (0-32) 12/29/21 04:20 ALT 18 U/L (0-33) 12/29/21 04:20 Alkaline Phosphatase 103 IU/L (35-105) 12/29/21 04:20 Total Protein 7.3 g/dL (6.6-8.7) 12/29/21 04:20 Albumin 4.4 g/dL (3.5-5.2) 12/29/21 04:20 Globulin 2.9 g/dL (1.3-4.6) 12/29/21 04:20 Lipase 18 U/L (13-60) 12/29/21 04:20 Urine Color Colorless (Yellow) 12/29/21 04:24 Urine Appearance Cloudy (CLEAR) 12/29/21 04:24 Urine pH 6.5 (5-7) 12/29/21 04:24 Ur Specific [place] 1.010 (1.005-1.030) 12/29/21 04:24 Urine Protein 1+ (Negative) H 12/29/21 04:24 Urine Glucose (UA) Norm (Normal) 12/29/21 04:24 Urine Ketones Negative (Negative) 12/29/21 04:24 Urine Blood 3+ (Negative) H 12/29/21 04:24 Urine Nitrate Negative (Negative) 12/29/21 04:24 Urine Bilirubin Neg (Negative) 12/29/21 04:24 Urine Urobilinogen Norm mg/dL (Negative) 12/29/21 04:24 Ur Leukocyte Esterase 2+ (Negative) H 12/29/21 04:24 Urine RBC Too numerous to cnt /hpf (0-2) H 12/29/21 04:24 Urine WBC Too numerous to cnt /hpf (0-5) H 12/29/21 04:24 Ur Squamous Epith Cells 0-4 /hpf (0-5) H 12/29/21 04:24 Amorphous Sediment Not Reportable 12/29/21 04:24 Urine Bacteria 2+ /hpf (NONE) H 12/29/21 04:24 Discharge Plan Discharge Condition: Stable Prescriptions: No Action omega-3 fatty acids [Fish Oil Concentrate] 1,000 mg capsule 1,000 mg PO DAILY 0RF cholecalciferol (vitamin D3) 25 mcg (1,000 unit) capsule 25 mcg PO DAILY 0RF gabapentin 300 mg capsule 300 mg PO BID 0RF vitamin B complex [B Complex-Vitamin B12] Tablet 1 tab PO DAILY 0RF Vicks NyQuil Cough 6.25-15 mg/15 mL solution 15 ml PO Q4H PRN0RF Rx Instructions: while awake hydrocodone-acetaminophen 7.5-325 mg tablet 1 tab PO TID PRN0RF paroxetine HCl 30 mg tablet 30 mg PO DAILY 0RF lorazepam 0.5 mg tablet 0.5 mg PO DAILY PRN (Reason: sleep) 0RF simvastatin 40 mg tablet 40 mg PO DAILY 0RF benazepril 40 mg tablet 40 mg PO DAILY 0RF aspirin [Adult Aspirin Regimen] 81 mg tablet,delayed release (DR/EC) 81 mg PO DAILY 0RF albuterol sulfate [Ventolin HFA] 90 mcg/actuation HFA aerosol inhaler 2 puff INHALATION Q6H PRN (Reason: shortness of breath or wheezing) 0RF ipratropium-albuterol 0.5 mg-3 mg(2.5 mg base)/3 mL solution for nebulization 3 ml inhalation Q6H PRN (Reason: shortness of breath or wheezing) Qty: 360 3RF metoprolol tartrate 25 mg tablet 12.5 mg PO BID Qty: 90 3RF nitroglycerin [Nitrostat] 0.4 mg tablet, sublingual 0.4 mg SUBLINGUAL Q5M PRN (Reason: chest pain) Qty: 25 3RF Rx Instructions: do not exceed 3 doses per episode nicotine (polacrilex) 2 mg gum 2 mg buccal Q2H PRN (Reason: nicotine cravings) Qty: 50 3RF nicotine 21-14-7 mg/24 hr patch, TD daily, sequential See Rx Instructions transdermal .COMPLEX Qty: 56 0RF Rx Instructions: apply 1-21 mg NICOTINE PATCH daily for 28 days; follow with 1-14 mg PATCH daily for 14 days, then 1-7mg PATCH daily for 14 days transdermal Breztri Aerosphere 160-9-4.8 mcg/actuation HFA aerosol inhaler 2 inh inhalation BID Qty: 10.7 3RF isosorbide mononitrate 30 mg tablet extended release 24 hr 30 mg PO DAILY Qty: 90 3RF Otezla 30 mg tablet 30 mg PO BID Qty: 60 6RF Rx Instructions: Take one tablet twice daily Referrals: Cezar Lorenz MD [Primary Care Provider] - Coding Level of Care Code ED Truck Service Manager for g Fwd Exam Comprehensive
[2021-12-29 04:00] LABS: Basophils # 0.1 10^3/uL (0.0-0.1); Basophils % 0.8 %; Eosinophils % 0.1 %; Hematocrit 40.8 % (37.0-47.0); Hemoglobin 14.6 g/dL (11.5-15.3); Lymphocytes % 12.9 %; Mean Corpuscular HGB Conc 35.8 g/dL (30.0-36.0); Mean Corpuscular Hemoglobin 29.3 pg (28.0-34.0); Mean Corpuscular Volume 81.9 fl (81-99); Mean Platelet Volume 10.9 fL (7.4-10.4); Monocytes % 6.3 %; Neutrophils # 12.26 10^3/uL (1.8-7.7); Neutrophils % 79.4 %; Nucleated Red Blood Cells % 0 %; Platelet Count 239 10^3/cmm (130-400); Red Blood Count 4.98 10^6/uL (4.1-5.3); Red Cell Distribution Width 13.6 % (12.1-15.1); White Blood Count 15.5 10^3/uL (4.0-10.0)
[2021-12-29 04:24] LABS: Slide Review Slide Review Perform
[2021-12-29] MEDS: morphine 4 mg/mL SDV 1 mL IVP (04:27)
[2021-12-29] MEDS: ondansetron 2 mg/ML SDV 2 mL 4 MG IVP (04:27)
[2021-12-29 04:38] LABS: Alanine Aminotransferase 18 U/L (0-33); Albumin Level 4.4 g/dL (3.5-5.2); Alkaline Phosphatase 103 IU/L (35-105); Anion Gap 16.4 (5-19); Aspartate Amino Transferase 17 U/L (0-32); Blood Urea Nitrogen 16 mg/dL (8-23); Calcium 9.3 mg/dL (8.5-10.5); Carbon Dioxide 28 mmol/L (22-29); Chloride 96 mmol/L (98-107); Globulin 2.9 g/dL (1.3-4.6); Glucose 132 mg/dL (65-115); Lipase 18 U/L (13-60); Osmolality Calculated 285 mOsm/kg (285-295); Potassium 4.4 mmol/L (3.5-5.1); Sodium 136 mmol/L (136-145); Total Bilirubin 0.5 mg/dL (0.15-1.2); Total Protein 7.3 g/dL (6.6-8.7)
[2021-12-29] MEDS: hyDRALAzine 20 mg/mL INJ 1 mL 10 MG IVP (04:38)
[2021-12-29 04:44] LABS: Add Urine Microscopic? YES; Bilirubin Urine Neg (Negative); Blood Urine 3+ (Negative); Glucose Urine UA Norm (Normal); Ketones Urine Negative (Negative); Leukocyte Esterase Urine 2+ (Negative); Nitrate Urine Negative (Negative); Protein Urine 1+ (Negative); Urine Appearance Cloudy (CLEAR); Urine Color Colorless (Yellow); Urobilinogen Urine Norm (Negative); pH Urine 6.5 (5-7)
[2021-12-29 04:45] LABS: Add Urine Culture? Yes; Bacteria Urine 2+ /hpf; RBC Urine TOO NUMEROUS TO CNT /hpf (0-2); Squamous Epithelial Cell Urine 0-4 /hpf (0-5); WBC Urine TOO NUMEROUS TO CNT /hpf (0-5)
--- NOTE | 2021-12-29 04:58 | P.HP_ITS ---
Providers/Chief Complaint Admitting Physician: Jan Patel MD Primary Care Provider: Cezar Lorenz MD Chief Complaint: abd pain History of Present Illness Eula Walter is a 71 year old female with a past medical history significant for COPD, hypertension, anxiety, irritable bowel syndrome, and sleep apnea who presents to the emergency department complaining of left lower quadrant abdominal pain x6 to 8 hours with acute worsening in the prior 3 hours. She describes her pain as sharp. Endorses radiation to the groin. She rates the pain 8 out of 10. She endorses associated symptoms of nausea but no vomiting. In the ED, patient was found to have leukocytosis to 15.5. Urinalysis with 2+ leukocyte esterase, too many to count WBCs and RBCs, and 2+ bacteria. Abdominal/pelvic CT revealed moderate left-sided hydroureteronephrosis without definite distal ureteral calculus concerning for possible recent stone passage versus vesicoureteral reflux with possible pyelonephritis versus occult radiolucent distal urinary calculus, stricture, or urothelial lesion. Patient denies prior personal history of kidney stones. She reports her brother had kidney stones. She was treated with ceftriaxone and morphine. She reports morphine improved the pain down to a 2 out of 10. Patient denies chest pain, fevers, chills, headache or vision changes. Review of Systems Narrative: A complete review of systems was obtained and is negative except as stated in HPI. Medications/Allergies Home Medications Medication Instructions Recorded Confirmed Last Taken Type albuterol sulfate 90 mcg/actuation 2 puff INHALATION Q6H PRN 03/19/20 12/10/21 05/18/21 22:00 History aerosol inhaler (Ventolin HFA) aspirin 81 mg tablet,delayed 81 mg PO DAILY 03/19/20 12/10/21 05/18/21 19:00 History release (Adult Aspirin Regimen) benazepril 40 mg tablet 40 mg PO DAILY 03/19/20 12/10/21 05/19/21 05:30 History lorazepam 0.5 mg tablet 0.5 mg PO DAILY PRN 03/19/20 12/10/21 05/18/21 22:00 History paroxetine HCl 30 mg tablet 30 mg PO DAILY 03/19/20 12/10/21 05/18/21 19:00 History simvastatin 40 mg tablet 40 mg PO DAILY 03/19/20 12/10/21 05/18/21 19:00 History cholecalciferol (vitamin D3) 25 25 mcg PO DAILY 12/31/20 12/10/21 05/18/21 08:00 History mcg (1,000 unit) capsule ipratropium 0.5 mg-albuterol 3 mg 3 ml INHALATION Q6H PRN #360 ml 02/02/21 12/10/21 05/18/21 19:00 Rx (2.5 mg base)/3 mL nebulization soln omega-3 fatty acids 1,000 mg 1,000 mg PO DAILY 02/09/21 12/10/21 05/18/21 08:00 History capsule (Fish Oil Concentrate) metoprolol tartrate 25 mg tablet 12.5 mg PO BID #90 tab 03/24/21 12/10/21 05/18/21 19:00 Rx nitroglycerin 0.4 mg sublingual 0.4 mg SUBLINGUAL Q5M PRN #25 tab 09/03/21 12/10/21 Unknown Rx tablet (Nitrostat) doxylamine-dextromethorphan 6.25 15 ml PO Q4H PRN 09/08/21 12/10/21 Unknown History mg-15 mg/15 mL oral solution (Vicks NyQuil Cough) gabapentin 300 mg capsule 300 mg PO BID cap 09/08/21 12/10/21 Unknown History vitamin B complex (B 1 tab PO DAILY 09/08/21 12/10/21 Unknown History Complex-Vitamin B12) nicotine (polacrilex) 2 mg gum 2 mg BUCCAL Q2H PRN #50 ea 09/24/21 12/10/21 Unknown Rx nicotine See Rx Instructions TRANSDERMAL 09/24/21 12/10/21 Unknown Rx 21mg/24hr-14mg/24hr-7mg/24hr daily .COMPLEX #56 patch transderm patches,sequentl budesonide 160 mcg-glycopyr 9 2 inh INHALATION BID #10.7 g 10/06/21 12/10/21 Unknown Rx mcg-formot 4.8 mcg/actuation HFA inhaler (Breztri Aerosphere) isosorbide mononitrate 30 mg 30 mg PO DAILY #90 tab 10/28/21 12/10/21 Unknown Rx tablet,extended release 24 hr apremilast 30 mg tablet (Otezla) 30 mg PO BID #60 tab 12/09/21 12/10/21 Unknown Rx hydrocodone 7.5 mg-acetaminophen 1 tab PO TID PRN 12/10/21 12/10/21 Unknown History 325 mg tablet Allergies Allergy/AdvReac Type Severity Reaction Status Date / Time No Known Allergies Allergy Verified 12/10/21 09:00 PFSH Acute PFSH: Medical History (Updated 12/29/21 @ 05:27 by Jan Patel MD) Encounter for screening for lung cancer History of COPD History of hypertension Hx of anxiety disorder Hx of colonic polyps Hx of gastroesophageal reflux (GERD) Hx of hyperlipidemia Hx of hyperparathyroidism Hx of irritable bowel syndrome Hx of sleep apnea Insomnia Peripheral arterial occlusive disease Surgical History History of bilateral cataract extraction Hx of carpal tunnel repair Hx of colonoscopy Hx of esophagogastroduodenoscopy Hx of parathyroidectomy Hx of tubal ligation Family History (Updated 12/29/21 @ 05:18 by Jan Patel MD) Brother Kidney stone Social History Smoking and tobacco status: former smoker Quit status (tobacco): considering quitting Second hand smoke exposure: No Smoking risk assessment/counseling performed?: Yes Alcohol intake: current Alcohol intake frequency: holidays/special occasions only Lives independently: Yes Household members: none Marital status: Single Current occupational status: retired Pets and animals: No History of recent travel: No Current gender identity: Female Vitals/I&O/Wt Last Vital Signs Temp 98.2 F 12/29/21 03:46 Pulse 87 12/29/21 04:32 Resp 16 12/29/21 04:32 BP 201/93 12/29/21 04:32 Pulse Ox 95 12/29/21 04:32 Weight last 48 hrs Weight 77.111 kg Physical Exam Narrative: General: Patient is awake and alert. Appears ill. Head: Normocephalic. Atraumatic. EOM intact. Neck: No JVD. Cardiovascular: RRR. No gallops. No murmurs. No peripheral edema. Lungs: Breath sounds are diminished in bilateral bases, no use of accessory muscles, no crackles or wheezes. Skin: No jaundice. No rashes. Abdomen: Obese. Normal bowel sounds, abdomen soft and TTP in LLQ. Genito Urinary: Genital exam not performed since complaints not related. Rectal: Rectal exam not performed since no symptoms indicated blood loss. Extremeties: No cyanosis or clubbing. Musculoskeletal: 5/5 strength, normal range of motion, no swollen or erythem atous joints. Neurological: Moves all 4 extremities. No myoclonus. Data : 12/29/21 03:56 12/29/21 04:20 A&P Assessment and plan (1) Pyelonephritis: Associated with left-sided hydroureteronephrosis DDx includes recent stone passage versus vesicoureteral reflux versus occult radiolucent distal urinary calculus, stricture, or urothelial lesion Urine culture pending Continue ceftriaxone Urology consulted by ED, appreciate recommendations Oxycodone for moderate pain Morphine for severe pain Toradol once Start bowel regiment Status: Acute (2) Hydronephrosis: Management as above Status: Acute (3) Hypertension: Continue KARUNA inhibitor Continue metoprolol Status: Acute (4) Peripheral arterial occlusive disease: Continue aspirin Continue statin Status: Acute (5) History of COPD: Not in acute exacerbation Hold home Breztri as it is nonformulary DuoNebs as needed Status: Acute (6) Insomnia: Continue home Ativan nightly as needed Status: Acute (7) Hx of anxiety disorder: Paxil on hold due to nonformulary status Status: Acute Attestations Medical Necessity Statement*: Patient is presents with left lower quadrant pain, found to have hydroureteronephrosis and pyelonephritis with hospitalization and treatment not expected to cross 2 midnights. Coding Level of Care Code Acute Nurse Orthopedic for Jo Ann Reeves Diagnoses Pyelonephritis N12 Hypertension I10 Hydronephrosis N13.30 Peripheral arterial occlusive disease I77.9 History of COPD Z87.09 Insomnia G47.00 Hx of anxiety disorder Z86.59
[2021-12-29] MEDS: cefTRIAXone 1,000 MG in sodium chloride 0.9% (plus) 50 ML 100 MG IV ×2 (05:04→08:50)
[2021-12-29] MEDS: ketorolac 30 mg/mL INJ 15 MG IVP (06:29)
[2021-12-29] MEDS: enoxaparin 40 mg/0.4 mL Syringe SUBCUT (06:33)
[2021-12-29] MEDS: omega-3 fatty acids 1,000 mg Capsule 1000 MG PO (08:50)
[2021-12-29] MEDS: metoprolol tartrate 25 mg Tablet 12.5 MG PO ×2 (08:50→17:05)
[2021-12-29] MEDS: cholecalciferol (vitamin D3) 1,000 unit Tablet 1000 UNIT PO (08:50)
[2021-12-29] MEDS: atorvastatin 40 mg Tablet 20 MG PO (08:52)
[2021-12-29] MEDS: lisinopril 20 mg Tablet 40 MG PO (08:53)
[2021-12-29] MEDS: gabapentin 300 mg Capsule PO ×2 (08:53→17:05)
[2021-12-29] MEDS: aspirin 81 mg EC Tablet PO (08:53)
[2021-12-29] MEDS: sennosides 8.6 mg Tablet 17.2 MG PO ×2 (08:56→17:05)
[2021-12-29] MEDS: isosorbide mononitrate ER 30 mg Tablet PO (08:57)
--- NOTE | 2021-12-29 10:21 | PC.CHAP ---
Pastoral Care Encounter/Spiritual Assessment Type of Contact [] Declined talent acquisition partner visit [] Patient/Family/Request visit [] Outpatient visit [] Follow-up visit [] Physician referral [] Code/Alert [x] Routine visit [] Staff referral [] Actively dying [] Patient sleeping [] Family support [] [] Out of room [] Palliative care [] [] Receiving care in room [] Pre-surgical visit [] Trauma [] Long length of stay [] ICU visit [] Other: Relational/Emotional Strength [x] Patient feels connected with others/family/visitors/staff [] Distress [] Loneliness/isolation [] Abandonment Spirituality of Patient [x] Person of Bessy [] Attends Pentecostalism of their Bessy [x] Believes in Prayer [] Reads Bible or Samaritan materials [] There are Spiritual issues to be addressed Roof Technician Interventions [x] Prayer [x] Active listening [x] Non-anxious presence [x] Spiritual/emotional support [] Crisis/trauma care [] Spiritual counseling [] Bereavement support [] Provided bereavement packet [] Provided Bible/devotional materials [] Provided toy/stuffed animal, coloring book to patient or family member [] Provided Communion [] Anointing/[facility] [] Salvation [x] Completed spiritual assessment [] Other: Impact on Illness or Injury [] Angry [] Fearful [] Anxious [] Often cries [] Exhaustion [] Unable to work [] Unable to attend latter-day [] Unable to walk/stand [] Unable to read [] Unable to drive [] Unable to eat/drink [] Unable to sleep [] Unable to be with family [] Patient intubated [] Other: Summary 10 mi9n Time spent with patient
--- NOTE | 2021-12-29 13:04 | P.CONIM_ITS ---
Providers/Reason For Consult Consulting Physician/Specialty*: Aceves/urology Reason for Consult*: Left hydronephrosis, pyelonephritis Requesting Physician: Dr. Campos Attending Physician: Santiago Hodge MD Primary Care Provider: Cezar Lorenz MD History of Present Illness History of Present Illness Eula Walter is a 71 year old female who I evaluated for the first time today at the request of the emergency department. She presented with acute onset of severe left flank pain typical for renal colicky type symptoms. Urine looked infected. White count was elevated at 15,000+ CT scan showed left hydronephrosis hydroureter down to the UVJ but there is no evidence of a stone within the collecting system. There is a lot of inflammatory change around the kidney consistent with obstruction/inflammation/both. Clinically it appeared that she passed a stone in the presence of UTI/pyelonephritis. She denies a history of recurrent urinary tract infections recently. Does state that every now and then she will notice lower abdominal discomfort that is not considered severe. Could not clearly elicit a history consistent with chronic cystitis but would not surprise me if that was in fact going on. I was consulted for opinion regarding these findings as mentioned above. Review of Systems Const: Reports: malaise; Denies: fever(s) or chills Eyes: Denies: eye discharge ENMT: Denies: hoarseness Card: Denies: chest pain or palpitations Resp: Reports: dyspnea and wheezing (Chronic) GI: Reports: abdominal pain and nausea : Reports: flank pain; Denies: hematuria Musc: Denies: joint redness Skin/Breast: Denies: rash or pruritus Neuro: Denies: confusion, behavioral changes or Slurred speech present Psych: Reports: anxiety (Related to the pain initially.); Denies: memory loss Endo: Denies: flushing Ganesh/Lymph: Denies: easy bruising or easy bleeding All/Imm: Denies: urticaria (No acute change from baseline) or acute wheezing (Chronic wheezing secondary to COPD) Medications/Allergies Home Medications Medication Instructions Recorded Confirmed Last Taken Type albuterol sulfate 90 mcg/actuation 2 puff INHALATION Q4H PRN 03/19/20 12/29/21 05/18/21 22:00 History aerosol inhaler (Ventolin HFA) aspirin 81 mg tablet,delayed 81 mg PO BEDTIME 03/19/20 12/29/21 05/18/21 19:00 History release (Adult Aspirin Regimen) benazepril 40 mg tablet 40 mg PO QAM 03/19/20 12/29/21 05/19/21 05:30 History lorazepam 0.5 mg tablet 0.5 mg PO BEDTIME PRN 03/19/20 12/29/21 05/18/21 22:00 History simvastatin 40 mg tablet 40 mg PO BEDTIME 03/19/20 12/29/21 05/18/21 19:00 History cholecalciferol (vitamin D3) 25 25 mcg PO QAM 12/31/20 12/29/21 05/18/21 08:00 History mcg (1,000 unit) capsule ipratropium 0.5 mg-albuterol 3 mg 3 ml INHALATION Q6H PRN #360 ml 02/02/21 12/29/21 05/18/21 19:00 Rx (2.5 mg base)/3 mL nebulization soln metoprolol tartrate 25 mg tablet 12.5 mg PO BID #90 tab 03/24/21 12/29/21 05/18/21 19:00 Rx nitroglycerin 0.4 mg sublingual 0.4 mg SUBLINGUAL Q5M PRN #25 tab 09/03/21 12/29/21 Unknown Rx tablet (Nitrostat) gabapentin 300 mg capsule 300 mg PO Q8H cap 09/08/21 12/29/21 Unknown History nicotine (polacrilex) 2 mg gum 2 mg BUCCAL Q2H PRN #50 ea 09/24/21 12/29/21 Unknown Rx budesonide 160 mcg-glycopyr 9 2 inh INHALATION BID #10.7 g 10/06/21 12/29/21 Unknown Rx mcg-formot 4.8 mcg/actuation HFA inhaler (Breztri Aerosphere) isosorbide mononitrate 30 mg 30 mg PO DAILY #90 tab 10/28/21 12/29/21 Unknown Rx tablet,extended release 24 hr apremilast 30 mg tablet (Otezla) 30 mg PO BID #60 tab 12/09/21 12/29/21 Unknown Rx hydrocodone 7.5 mg-acetaminophen 1 tab PO BID PRN 12/10/21 12/29/21 Unknown History 325 mg tablet Vitamin B-12 1 tab PO QAM 12/29/21 12/29/21 Unknown History cyclobenzaprine 5 mg tablet 5 mg PO DAILY PRN 12/29/21 12/29/21 Unknown History omega-3 fatty acids 1,000 mg 1,000 mg PO QAM 12/29/21 12/29/21 Unknown History capsule paroxetine HCl 40 mg tablet 40 mg PO BEDTIME 12/29/21 12/29/21 Unknown History Allergies Allergy/AdvReac Type Severity Reaction Status Date / Time No Known Allergies Allergy Verified 12/29/21 07:50 Current Medications Generic Name Dose Route Start Last Admin Trade Name Freq PRN Reason Stop Dose Admin Aspirin 81 mg 12/29/21 09:00 12/29/21 08:53 Aspirin 81 Mg Ec Tablet PO 81 mg DAILY DENEEN Administration Atorvastatin Calcium 20 mg 12/29/21 09:00 12/29/21 08:52 Atorvastatin 40 Mg Tablet PO 20 mg DAILY DENEEN Administration Enoxaparin Sodium 40 mg 12/29/21 06:06 12/29/21 06:33 Enoxaparin 40 Mg/0.4 Ml Syringe SUBCUT 40 mg Q24H DENEEN Administration Gabapentin 300 mg 12/29/21 09:00 12/29/21 08:53 Gabapentin 300 Mg Capsule PO 300 mg BID DENEEN Administration Ceftriaxone Sodium 1,000 mg/ 50 mls @ 100 mls/hr 12/29/21 09:00 12/29/21 10:52 Sodium Chloride IV Infused DAILY DENEEN Infusion Protocol Isosorbide Mononitrate 30 mg 12/29/21 09:00 12/29/21 08:57 Isosorbide Mononitrate Er 30 Mg Tablet PO 30 mg DAILY DENEEN Administration Lisinopril 40 mg 12/29/21 09:00 12/29/21 08:53 Lisinopril 20 Mg Tablet PO 40 mg DAILY DENEEN Administration Metoprolol Tartrate 12.5 mg 12/29/21 09:00 12/29/21 08:50 Metoprolol Tartrate 25 Mg Tablet PO 12.5 mg BID DENEEN Administration [id number] Ethyl Esters 1,000 mg 12/29/21 09:00 12/29/21 08:50 [place]-3 Fatty Acids 1,000 Mg Capsule PO 1,000 mg DAILY DENEEN Administration Senna 17.2 mg 12/29/21 09:00 12/29/21 08:56 Sennosides 8.6 Mg Tablet PO 17.2 mg BID DENEEN Administration Vitamin D 1,000 unit 12/29/21 09:00 12/29/21 08:50 Cholecalciferol (Vitamin D3) 1,000 Unit Tablet PO 1,000 unit DAILY DENEEN Administration PFSH Acute PFSH: Medical History Encounter for screening for lung cancer History of COPD History of hypertension Hx of anxiety disorder Hx of colonic polyps Hx of gastroesophageal reflux (GERD) Hx of hyperlipidemia Hx of hyperparathyroidism Hx of irritable bowel syndrome Hx of sleep apnea Insomnia Peripheral arterial occlusive disease Surgical History History of bilateral cataract extraction Hx of carpal tunnel repair Hx of colonoscopy Hx of esophagogastroduodenoscopy Hx of parathyroidectomy Hx of tubal ligation Family History Brother Kidney stone Social History Smoking and tobacco status: former smoker Quit status (tobacco): considering quitting Second hand smoke exposure: No Smoking risk assessment/counseling performed?: Yes Alcohol intake: current Alcohol intake frequency: holidays/special occasions only Lives independently: Yes Household members: none Marital status: Single Current occupational status: retired Pets and animals: No History of recent travel: No Current gender identity: Female Vitals/I&O/Wt Last Vital Signs Temp 98.4 F 12/29/21 11:32 Pulse 71 12/29/21 11:32 Resp 16 12/29/21 11:32 BP 94/56 12/29/21 11:32 Pulse Ox 90 12/29/21 11:32 12/28/21 12/29/21 12/29/21 22:59 06:59 14:59 Intake Total 50 / 50 410 / 410 Balance 50 / 50 410 / 410 Weight last 48 hrs Weight 170 lb Physical Exam Const: COMMON NORMALS: no acute distress, alert and well nourished GENERAL APPEARANCE: well kempt and well developed ORIENTATION/CONSCIOUSNESS: not confused HENMT: COMMON NORMALS: normocephalic and atraumatic HEAD & SCALP: normocephalic and atraumatic Eye: COMMON NORMALS: conjunctivae normal and no scleral icterus CONJUNCTIVA: Yes conjunctivae normal Neck/C-Spine: COMMON NORMALS: full ROM GENERAL: Yes normal visual inspection Lymph: OTHER: No groin lymphadenopathy Resp: COMMON NORMALS: normal respiratory effort EFFORT & INSPECTION: No labored and No Actively coughing OTHER: Audible and auscultated wheezes Cardio: COMMON NORMALS: regular rate and regular rhythm RATE: regular rate RHYTHM: regular rhythm BRUITS: no carotid bruits GI: OTHER: Normoactive bowel sounds. Does have some mild left-sided tenderness but not severe. No rebound. No palpable masses : OTHER: Bladder nondistended. Nontender Extremity: COMMON NORMALS: no clubbing, cyanosis or edema Neuro: COMMON NORMALS: no focal motor deficits SENSORIUM/ORIENTATION: Yes alert Psych: COMMON NORMALS: mental status grossly normal APPEARANCE: Yes grossly normal and Yes well kempt ATTITUDE: Yes calm and Yes engaged Skin: COMMON NORMALS: no rashes or lesions noted and no jaundice GENERAL SKIN EXAM: no rashes or lesions noted Data : 12/29/21 03:56 12/29/21 04:20 CT Abd/Pel: My impression: I have personally reviewed the CT scan. I do agree with the findings. I see no evidence of intraureteral stone as a source of the hydroureteronephrosis. There is significant inflammatory changes around the kidney and the ureter No obvious upper urinary tract stones. No evidence of soft tissue mass of the trigone or distal ureter. I also reviewed old CT scan several years ago that showed no evidence of hydronephrosis UPJ obstruction etc. Normal-looking kidney. Could not see any obvious stones. A&P Assessment and plan (1) Pyelonephritis: Likely obstructive pyelonephritis with spontaneous passage of stone. Based on those findings I would recommend treating as per usual protocol for py elonephritis. Status: Acute (2) Hydronephrosis: Most likely diagnosis is consistent with clinical passage of left ureteral calculus. Status: Acute Consult Attestations Medical Necessity Statement: See attending. Coding Level of Care Code Acute [employer] Data Entry for Jo Ann Reeves Diagnoses Pyelonephritis N12 Hydronephrosis N13.30
--- NOTE | 2021-12-29 13:19 | P.PN_ITS ---
Subjective Subjective: Patient was seen this morning, she tells me that she is feeling a lot better, her left flank pain that radiates to the left lower abdomen has significantly resolved, no nausea, no vomiting, Vitals/I&O/Wt Last Vital Signs Temp 98.4 F 12/29/21 11:32 Pulse 71 12/29/21 11:32 Resp 16 12/29/21 11:32 BP 94/56 12/29/21 11:32 Pulse Ox 90 12/29/21 11:32 12/28/21 12/29/21 12/29/21 22:59 06:59 14:59 Intake Total 50 / 50 410 / 410 Balance 50 / 50 410 / 410 Weight last 48 hrs Weight 77.111 kg Physical Exam Const: COMMON NORMALS: no acute distress and patient oriented x3 Resp: COMMON NORMALS: normal respiratory effort, No retractions, No use of accessory muscles and clear to auscultation bilaterally AUSCULTATION: clear to auscultation bilaterally Cardio: COMMON NORMALS: regular rate, regular rhythm, S1 normal heart sound present and S2 normal heart sound present RATE: regular rate RHYTHM: regular rhythm HEART SOUNDS: S1 normal heart sound present and S2 normal heart sound present GI: COMMON NORMALS: Normal to inspection, nondistended, normoactive bowel sounds present, Soft to palpation and non-tender PALPATION: Yes Soft to palpation Extremity: COMMON NORMALS: no pedal edema Neuro: COMMON NORMALS: patient oriented x3 Psych: COMMON NORMALS: mental status grossly normal Data : 12/29/21 03:56 12/29/21 04:20 A&P Assessment and plan (1) Pyelonephritis: Associated with left-sided hydroureteronephrosis DDx includes recent stone passage versus vesicoureteral reflux versus occult radiolucent distal urinary calculus, stricture, or urothelial lesion Urine culture pending Continue ceftriaxone Urology consulted Oxycodone for moderate pain Morphine for severe pain Toradol once Start bowel regiment Status: Acute (2) Hydronephrosis: Management as above Status: Acute (3) Hypertension: Continue KARUNA inhibitor Continue metoprolol Status: Acute (4) Peripheral arterial occlusive disease: Continue aspirin Continue statin Status: Acute (5) History of COPD: Not in acute exacerbation Hold home Breztri as it is nonformulary DuoNebs as needed Status: Acute (6) Insomnia: Continue home Ativan nightly as needed Status: Acute (7) Hx of anxiety disorder: Paxil on hold due to nonformulary status Status: Acute Attestations Medical Necessity Statement*: Patient requires hospital inpatient, greater than 2 midnights, for left pyelonephritis Coding Level of Care Code Acute Assisted Living Home Director for [facility]wd Diagnoses Pyelonephritis N12 Hydronephrosis N13.30 Hypertension I10 Peripheral arterial occlusive disease I77.9 History of COPD Z87.09 Insomnia G47.00 Hx of anxiety disorder Z86.59
[2021-12-30] VITALS: BP 165/70; PULSE 71; RESP 18; TEMP 37; O2SAT 91
[2021-12-30 00:53] VITALS: RESP 18; O2SAT 91
[2021-12-30] MEDS: oxyCODONE 5 mg IR Tab/Cap PO (00:53)
[2021-12-30 04:08] VITALS: BP 120/61; PULSE 72; RESP 20; TEMP 37.1; O2SAT 89
[2021-12-30 05:11] LABS: Basophils # 0.1 10^3/uL (0.0-0.1); Basophils % 0.9 %; Eosinophils # 2.7 10^3/uL (0.0-0.8); Hematocrit 38.6 % (37.0-47.0); Hemoglobin 12.9 g/dL (11.5-15.3); Lymphocytes # 2.7 10^3/uL (0.8-4.8); Lymphocytes % 29.8 %; Mean Corpuscular HGB Conc 33.4 g/dL (30.0-36.0); Mean Corpuscular Hemoglobin 29.1 pg (28.0-34.0); Mean Corpuscular Volume 86.9 fl (81-99); Mean Platelet Volume 9.2 fL (7.4-10.4); Monocytes # 0.6 10^3/uL (0.2-0.9); Monocytes % 6.9 %; Neutrophils # 2.93 10^3/uL (1.8-7.7); Neutrophils % 32.1 %; Nucleated Red Blood Cells % 0 %; Platelet Count 303 10^3/cmm (130-400); Red Blood Count 4.44 10^6/uL (4.1-5.3); Red Cell Distribution Width 13.9 % (12.1-15.1); White Blood Count 9.1 10^3/uL (4.0-10.0)
[2021-12-30 05:25] LABS: Slide Review Slide Review Perform
[2021-12-30 05:35] LABS: Anion Gap 15.6 (5-19); Blood Urea Nitrogen 21 mg/dL (8-23); C Reactive Protein 47.1 mg/L (0.0-4.9); Calcium 8.7 mg/dL (8.5-10.5); Carbon Dioxide 24 mmol/L (22-29); Chloride 99 mmol/L (98-107); Glucose 119 mg/dL (65-115); Osmolality Calculated 282 mOsm/kg (285-295); Potassium 4.6 mmol/L (3.5-5.1); Sodium 134 mmol/L (136-145)
[2021-12-30 05:38] LABS: Procalcitonin 0.11 ng/mL (0-0.5)
[2021-12-30] MEDS: enoxaparin 40 mg/0.4 mL Syringe SUBCUT (06:27)
[2021-12-30 07:55] VITALS: BP 141/69; PULSE 74; RESP 18; TEMP 36.6; O2SAT 90
[2021-12-30] MEDS: sennosides 8.6 mg Tablet 17.2 MG PO (08:50)
[2021-12-30] MEDS: atorvastatin 40 mg Tablet 20 MG PO (08:50)
[2021-12-30] MEDS: omega-3 fatty acids 1,000 mg Capsule 1000 MG PO (08:50)
[2021-12-30] MEDS: isosorbide mononitrate ER 30 mg Tablet PO (08:51)
[2021-12-30] MEDS: cholecalciferol (vitamin D3) 1,000 unit Tablet 1000 UNIT PO (08:51)
[2021-12-30] MEDS: aspirin 81 mg EC Tablet PO (08:51)
[2021-12-30] MEDS: gabapentin 300 mg Capsule PO (08:51)
[2021-12-30] MEDS: lisinopril 20 mg Tablet 40 MG PO (08:51)
[2021-12-30] MEDS: cefTRIAXone 1,000 MG in sodium chloride 0.9% (plus) 50 ML 100 MG IV (08:52)
[2021-12-30] MEDS: metoprolol tartrate 25 mg Tablet 12.5 MG PO (08:53)
--- NOTE | 2021-12-30 10:03 | PM.DCS ---
Discharge Providers Date of Admission: 12/29/21 04:57 Date of Discharge: December 30, 2021 Attending Provider at Admission: Jan Patel MD Attending Provider at Discharge: Santiago Hodge MD Primary Care Provider: Cezar Lorenz MD Diagnoses at Discharge Discharge Diagnosis (1) Pyelonephritis: Status: Acute (2) Hydronephrosis: Status: Acute (3) Hypertension: Status: Acute (4) Peripheral arterial occlusive disease: Status: Acute (5) History of COPD: Status: Acute (6) Insomnia: Status: Acute (7) Hx of anxiety disorder: Status: Acute Reason for Visit Reason for Visit: abd pain Hospital Course Hospital Course Eula Walter is a 71 year old female with a past medical history significant for COPD, hypertension, anxiety, irritable bowel syndrome, and sleep apnea who presents to the emergency department complaining of left lower quadrant abdominal pain Patient was admitted to [facility] for left sided pyelonephritis with left-sided hydroureteronephrosis, received IV antibiotics, urology was consulted.patient overall clinically improved, symptomatology improved, remained afebrile, urine culture showing gram-negative rods, renal function improved, urology advised of conservative intervention. Patient will be discharged with 7 remaining days of Levaquin, advised to hydrate well, follow-up with primary care in 1 week, follow-up with urology in a month. Physical Exam Const: COMMON NORMALS: no acute distress and patient oriented x3 Resp: COMMON NORMALS: normal respiratory effort, No retractions, No use of accessory muscles and clear to auscultation bilaterally AUSCULTATION: clear to auscultation bilaterally Cardio: COMMON NORMALS: regular rate, regular rhythm, S1 normal heart sound present and S2 normal heart sound present RATE: regular rate RHYTHM: regular rhythm HEART SOUNDS: S1 normal heart sound present and S2 normal heart sound present GI: COMMON NORMALS: Normal to inspection, nondistended, normoactive bowel sounds present, Soft to palpation and non-tender PALPATION: Yes Soft to palpation Extremity: COMMON NORMALS: no pedal edema Neuro: COMMON NORMALS: patient oriented x3 Psych: COMMON NORMALS: mental status grossly normal Discharge Data Studies Completed and Pending Completed Studies During Hospitalization Category Date Time Status CT kidney stone [id number] Urgent Cat Scan 12/29/21 03:46 Completed Pending at discharge Category Date Time Status C Reactive Protein AM LABS Lab 12/31/21 04:00 Ordered C Reactive Protein AM LABS Lab 01/01/22 04:00 Ordered Procalcitonin AM LABS Lab 12/31/21 04:00 Ordered Procalcitonin AM LABS Lab 01/01/22 04:00 Ordered Urine Culture Stat Lab 12/29/21 04:24 Results Radiology Impressions Abdomen/Pelvis CT 12/29/21 03:46 IMPRESSION: 1. Moderate left hydroureteronephrosis without definite distal ureteral calculus. Differential diagnosis includes recent stone passage versus vesicoureteral reflux with possible pyelonephritis versus occult radiolucent distal urinary calculus, stricture or urothelial lesion. 2. Atherosclerotic vascular disease including coronary artery disease. Laboratory Results WBC 9.1 10^3/uL (4.0-10.0) 12/30/21 04:51 RBC 4.44 10^6/uL (4.1-5.3) 12/30/21 04:51 Hgb 12.9 g/dL (11.5-15.3) 12/30/21 04:51 Hct 38.6 % (37.0-47.0) 12/30/21 04:51 MCV 86.9 fl (81-99) D 12/30/21 04:51 MCH 29.1 pg (28.0-34.0) 12/30/21 04:51 MCHC 33.4 g/dL (30.0-36.0) D 12/30/21 04:51 RDW 13.9 % (12.1-15.1) 12/30/21 04:51 Plt Count 303 10^3/cmm (130-400) 12/30/21 04:51 MPV 9.2 fL (7.4-10.4) 12/30/21 04:51 Neut % (Auto) 32.1 % 12/30/21 04:51 Lymph % (Auto) 29.8 % 12/30/21 04:51 [place] % (Auto) 6.9 % 12/30/21 04:51 Eos % (Auto) 30.0 % 12/30/21 04:51 Baso % (Auto) 0.9 % 12/30/21 04:51 Neut # (Auto) 2.93 10^3/uL (1.8-7.7) 12/30/21 04:51 Lymph # (Auto) 2.7 10^3/uL (0.8-4.8) 12/30/21 04:51 [place] # (Auto) 0.6 10^3/uL (0.2-0.9) 12/30/21 04:51 Eos # (Auto) 2.7 10^3/uL (0.0-0.8) H 12/30/21 04:51 Baso # (Auto) 0.1 10^3/uL (0.0-0.1) 12/30/21 04:51 Nucleated RBC % (auto) 0 % 12/30/21 04:51 Nucleated RBCs # 0.0 /100WBC 12/30/21 04:51 Sodium 134 mmol/L (136-145) L 12/30/21 04:51 Sodium Cancelled 12/30/21 04:51 Potassium 4.6 mmol/L (3.5-5.1) 12/30/21 04:51 Potassium Cancelled 12/30/21 04:51 Chloride 99 mmol/L (98-107) 12/30/21 04:51 Chloride Cancelled 12/30/21 04:51 Carbon Dioxide 24 mmol/L (22-29) 12/30/21 04:51 Carbon Dioxide Cancelled 12/30/21 04:51 Anion Gap 15.6 (5-19) 12/30/21 04:51 Anion Gap Cancelled 12/30/21 04:51 BUN 21 mg/dL (8-23) 12/30/21 04:51 BUN Cancelled 12/30/21 04:51 Creatinine 0.7 mg/dL (0.5-0.9) 12/30/21 04:51 Creatinine Cancelled 12/30/21 04:51 GFR Calculation Cancelled 12/30/21 04:51 GFR Calculation Not Reportable 12/30/21 04:51 Glucose 119 mg/dL (65-115) H 12/30/21 04:51 Glucose Cancelled 12/30/21 04:51 Calculated Osmolality 282 mOsm/kg (285-295) L 12/30/21 04:51 Calculated Osmolality Cancelled 12/30/21 04:51 Calcium 8.7 mg/dL (8.5-10.5) 12/30/21 04:51 Calcium Cancelled 12/30/21 04:51 Total Bilirubin 0.5 mg/dL (0.15-1.2) 12/29/21 04:20 AST 17 U/L (0-32) 12/29/21 04:20 ALT 18 U/L (0-33) 12/29/21 04:20 Alkaline Phosphatase 103 IU/L (35-105) 12/29/21 04:20 C-Reactive Protein 47.1 mg/L (0.0-4.9) H 12/30/21 04:51 Total Protein 7.3 g/dL (6.6-8.7) 12/29/21 04:20 Albumin 4.4 g/dL (3.5-5.2) 12/29/21 04:20 Globulin 2.9 g/dL (1.3-4.6) 12/29/21 04:20 Lipase 18 U/L (13-60) 12/29/21 04:20 Procalcitonin 0.11 ng/mL (0-0.5) 12/30/21 04:51 Procalcitonin Cancelled 12/30/21 04:51 Urine Color Colorless (Yellow) 12/29/21 04:24 Urine Appearance Cloudy (CLEAR) 12/29/21 04:24 Urine pH 6.5 (5-7) 12/29/21 04:24 Ur Specific [place] 1.010 (1.005-1.030) 12/29/21 04:24 Urine Protein 1+ (Negative) H 12/29/21 04:24 Urine Glucose (UA) Norm (Normal) 12/29/21 04:24 Urine Ketones Negative (Negative) 12/29/21 04:24 Urine Blood 3+ (Negative) H 12/29/21 04:24 Urine Nitrate Negative (Negative) 12/29/21 04:24 Urine Bilirubin Neg (Negative) 12/29/21 04:24 Urine Urobilinogen Norm mg/dL (Negative) 12/29/21 04:24 Ur Leukocyte Esterase 2+ (Negative) H 12/29/21 04:24 Urine RBC Too numerous to cnt /hpf (0-2) H 12/29/21 04:24 Urine WBC Too numerous to cnt /hpf (0-5) H 12/29/21 04:24 Ur Squamous Epith Cells 0-4 /hpf (0-5) H 12/29/21 04:24 Amorphous Sediment Not Reportable 12/29/21 04:24 Urine Bacteria 2+ /hpf (NONE) H 12/29/21 04:24 Vitals Last Vital Signs Temp 97.8 F 12/30/21 07:55 Pulse 74 12/30/21 07:55 Resp 18 12/30/21 07:55 BP 141/69 12/30/21 07:55 Pulse Ox 90 12/30/21 07:55 Discharge Plan Discharge Patient Disposition: Home Condition: Stable Prescriptions: New levofloxacin 750 mg tablet 750 mg PO DAILY 7 Days Qty: 7 0RF Continued cholecalciferol (vitamin D3) 25 mcg (1,000 unit) capsule 25 mcg PO QAM 0RF gabapentin 300 mg capsule 300 mg PO Q8H 0RF hydrocodone-acetaminophen 7.5-325 mg tablet 1 tab PO BID PRN (Reason: Pain) 0RF lorazepam 0.5 mg tablet 0.5 mg PO BEDTIME PRN (Reason: sleep) 0RF simvastatin 40 mg tablet 40 mg PO BEDTIME 0RF benazepril 40 mg tablet 40 mg PO QAM 0RF aspirin [Adult Aspirin Regimen] 81 mg tablet,delayed release (DR/EC) 81 mg PO BEDTIME 0RF albuterol sulfate [Ventolin HFA] 90 mcg/actuation HFA aerosol inhaler 2 puff INHALATION Q4H PRN (Reason: shortness of breath or wheezing) 0RF ipratropium-albuterol 0.5 mg-3 mg(2.5 mg base)/3 mL solution for nebulization 3 ml inhalation Q6H PRN (Reason: shortness of breath or wheezing) Qty: 360 3RF metoprolol tartrate 25 mg tablet 12.5 mg PO BID Qty: 90 3RF nitroglycerin [Nitrostat] 0.4 mg tablet, sublingual 0.4 mg SUBLINGUAL Q5M PRN (Reason: chest pain) Qty: 25 3RF Rx Instructions: do not exceed 3 doses per episode nicotine (polacrilex) 2 mg gum 2 mg buccal Q2H PRN (Reason: nicotine cravings) Qty: 50 3RF Breztri Aerosphere 160-9-4.8 mcg/actuation HFA aerosol inhaler 2 inh inhalation BID Qty: 10.7 3RF isosorbide mononitrate 30 mg tablet extended release 24 hr 30 mg PO DAILY Qty: 90 3RF Otezla 30 mg tablet 30 mg PO BID Qty: 60 6RF Fish Oil Concentrate 1,000 mg Capsule 1,000 mg PO QAM 0RF paroxetine HCl 40 mg tablet 40 mg PO BEDTIME 0RF cyclobenzaprine 5 mg tablet 5 mg PO DAILY PRN (Reason: Muscle Spasm) 0RF Vitamin B-12 1 tab PO QAM 0RF Discharge Orders: Discharge Order (Routine); Ordered 12/30/21 Ordered By: Santiago Hodge Referrals: Cristopher Aceves MD [Physician] - 1 month Cezar Lorenz MD [Primary Care Provider] - Discharge Diet: Regular Discharge Activity: Resume usual activity Patient Instructions: Opioid Safety Activity Restrictions/Additional Instructions: - If you have recurrent flank pain, fevers, go to the emergency room -Drink plenty of electrolyte balance fluids -Take antibiotics as prescribed -Follow-up with primary care in 1 week Discharge Attestations Time Spent in Discharge Care*: less than 30 min Quality Metrics Clinical Quality Measures [ No reported AMI, CVA or VTE this stay] Coding Level of Care Code Acute Chg FW DC note Diagnoses Pyelonephritis N12 Hydronephrosis N13.30 Hypertension I10 Peripheral arterial occlusive disease I77.9 History of COPD Z87.09 Insomnia G47.00 Hx of anxiety disorder Z86.59
[2021-12-30 10:12] VITALS: PULSE 68; RESP 18; O2SAT 93
[2021-12-30 11:28] VITALS: BP 141/69; PULSE 68; RESP 18; TEMP 36.6; O2SAT 93
== END 2021-12-30 11:30 | disposition home or self-care (01) ==
LOC: ER 05:01 → MEDSURG 05:59
PROVIDERS: Admitting Provider Internal Medicine; Emergency Provider Emergency Medicine; PCP Family Medicine; Visit Provider Family Medicine
DX: N12 Tubulo-interstitial nephritis, not specified as acute or chronic (principal); N13.30 Unspecified hydronephrosis; I10 Essential (primary) hypertension; I77.9 Disorder of arteries and arterioles, unspecified; Z87.09 Personal history of other diseases of the respiratory system; G47.00 Insomnia, unspecified; Z86.59 Personal history of other mental and behavioral disorders; Z87.891 Personal history of nicotine dependence; K21.9 Gastro-esophageal reflux disease without esophagitis; E78.5 Hyperlipidemia, unspecified; E03.9 Hypothyroidism, unspecified; G47.30 Sleep apnea, unspecified
CPT/HCPCS: 36415; 74176; 80048; 80053; 81001; 83690; 84145; 85025; 86140; 87077; 87086; 87186; 96365; 96372; 96375; 99285; G0378; J0360; J0696; J1650; J1885; J2270; J2405

== ENCOUNTER → 2022-01-20 08:57 | Outpatient (BNVA) | payer MEDICARE, MEDICAID, SELFPAY | PROVIDERS: PCP Family Medicine; Visit Provider Nurse Practitioner Family | DX: I77.9 Disorder of arteries and arterioles, unspecified (principal) | CPT/HCPCS: 99214 ==

== ENCOUNTER 2022-01-22 08:20 | Outpatient (CLI) | payer MEDICARE, MEDICAID, SELFPAY ==
--- NOTE | 2022-01-22 08:36 | XR_ITS ---
WS: [id number] Lumbar spine with flexion, extension, and neutral lateral, 01/22/2022 Clinical Data: SPINAL STENOSIS,LUMBAR REGION W/NEUROGENIC CLAUDICATION Comparison: Lumbar spine, 05/18/2016. Findings: There is loss of the central vertebral body height of L3 which represents a compression fracture of i ndeterminate age. There is degenerative disc narrowing at L2-L3 and L3-L4. There is a subluxation of 0.3 cm at L4-L5. There is minimal anterior osteoarthritic spurring from L1 through L5 with osteoporos is. No limitation of motion or change in subluxation is seen. There is calcification in the wall of the abdominal aorta but no aneurysm. XR/XR lumbar spine f/e only [id number] Impression: 1. Compression fracture of the superior aspect of L3 of indeterminate age. 2. Multilevel degenerative disc narrowing, osteoarthritis and osteoporosis. 3. No limitation of motion or change in subluxation on flexion or extension.
--- NOTE | 2022-01-22 08:36 | MR_ITS ---
WS: [id number] MRI LUMBAR SPINE NONCONTRAST HISTORY: SPINAL STENOSIS LUMBAR REGION W/NEUROGENIC CLAUDICATION COMPARISON: 05/18/2016 TECHNIQUE: Sagittal and axial multisequence imaging is submitted. Straightening and mild curvature of the cervical spine. 2 mm anterolisthesis of L4. New 20% compression fracture at L3 since 2016. No marrow edema therefore this is not acute. Very minimal disc desiccation. Conus terminates normally at L1-2 disc level. L1-L2: No stenosis. L2-L3: Moderate annular disc bulging and mild osteophytosis. Marked ligamentum flavum hypertrophy and mild facet arthritis. Disc encroaches and deforms the ventral thecal sac. Mild central and bilateral subarticular recess and RIGHT foraminal stenosis. L3-L4: Mild annular disc bulging with mild ligamentum flavum hypertrophy and facet arthritis. Mild os teophytic ridging. Small amount of fluid in the LEFT facet joint. Mild central, bilateral subarticula r recess and foraminal stenosis. L4-L5: Moderate annular disc bulging slightly asymmetric to the RIGHT. Mild osteophytic ridging. Nery re bilateral ligamentum flavum hypertrophy and mild facet arthritis. There is significant encroachmen t upon the ventral thecal sac. Severe central and bilateral subarticular recess stenosis. Only mild f oraminal stenosis. There is significant displacement and deformity of the exiting L5 nerve roots. L5-S1: Moderate annular disc bulge with marked ligamentum flavum hypertrophy and mild facet arthritis . Significant encroachment upon the S1 nerve roots bilaterally but greatest on the RIGHT. Mild centra l and foraminal narrowing. No retroperitoneal abnormality. MR/MR lumbar spine wo con* [id number] IMPRESSION: 1. Moderate progression of central and subarticular recess stenosis and degene rative changes since 2016. 2. Severe central and bilateral subarticular recess stenosis at L4-5 with sign ificant involvement of the exiting L5 nerve roots. 3. Significant disc encroachment upon the S1 nerve roots bilaterally but grea test on the RIGHT. Only mild central and foraminal stenosis. 4. Mild central and bilateral subarticular recess stenosis at L2-3 and L3-4. 5. 20% compression fracture of L3 is not acute but new since 2016.
== END 2022-01-22 08:21 | disposition home or self-care (01) ==
LOC: RAD 08:22
PROVIDERS: PCP Family Medicine; Visit Provider Anesthesiology Pain Medicine
DX: M48.062 Spinal stenosis, lumbar region with neurogenic claudication (principal); M48.56XA Collapsed vertebra, not elsewhere classified, lumbar region, initial encounter for fracture
CPT/HCPCS: 72120; 72148

== ENCOUNTER → 2022-02-05 09:30 | Outpatient (BNVA) | payer MEDICARE, MEDICAID, SELFPAY | PROVIDERS: PCP Family Medicine; Visit Provider Urology | DX: N13.30 Unspecified hydronephrosis (principal); N12 Tubulo-interstitial nephritis, not specified as acute or chronic; N39.0 Urinary tract infection, site not specified; N39.46 Mixed incontinence | CPT/HCPCS: 81003; 99213 ==

== ENCOUNTER 2022-03-19 14:57 | Outpatient (CLI) | payer MEDICARE, MEDICAID, SELFPAY ==
--- NOTE | 2022-03-19 15:15 | US_ITS ---
WS: [email or web address] RENAL ULTRASOUND HISTORY: N13.30 - Unspecified hydronephrosis COMPARISON: 11/06/2019 TECHNIQUE: 2-D and color Doppler imaging of the kidney submitted. Right kidney: 11.1 cm x 4.2 cm x 4.4 cm. Normal size kidney. No hydronephrosis. Lucency in the renal pelvis is probably an extrarenal pelvis o r parapelvic cyst. This has been present on prior CT evaluations also with no calyceal dilatation or progression. Left kidney: 13.1 cm x 5.8 cm x 5.9 cm. Normal echogenicity with no hydronephrosis or mass. Aorta: Poorly visualized. Urinary Bladder: Normal distention. US/US renal BI* [id number] IMPRESSION: 1. No hydronephrosis or solid renal mass. 2. Small RIGHT parapelvic or extrarenal pelvis. No hydronephrosis. Similar fin ding over multiple prior evaluations.
== END 2022-03-19 14:58 | disposition home or self-care (01) ==
LOC: RAD 14:59
PROVIDERS: PCP Family Medicine; Visit Provider Urology
DX: N13.30 Unspecified hydronephrosis (principal)
CPT/HCPCS: 76770

== ENCOUNTER → 2022-03-23 09:18 | Outpatient (BNVA) | payer MEDICARE, MEDICAID, SELFPAY | PROVIDERS: PCP Family Medicine; Visit Provider Urology | DX: N39.0 Urinary tract infection, site not specified (principal); N13.30 Unspecified hydronephrosis; N39.46 Mixed incontinence | CPT/HCPCS: 81003; 99213 ==

== ENCOUNTER 2022-03-26 14:24 | Outpatient (CLI) | payer MEDICARE, MEDICAID, SELFPAY ==
--- NOTE | 2022-03-26 14:59 | CT_ITS ---
WS: [email or web address] LDCT LUNG CANCER SCREENING HISTORY: LUNG CANCER SCREENING TECHNIQUE: Axial imaging performed from the apices to 1 cm below the costophrenic angles. Coronal and sagittal reformats are submitted with axial MIP series. All CT scans at [facility] use at least one of these dose optimization techniques: automated exposure control; mA and/or kV adjustment per patient size (includes targeted exams where dose is matched to clinical indication); or iterativ e reconstruction. DLP: 67.70 mGy.cm DIvol: Mean CTDIvol: 1.60 (mGy) COMPARISON: 01/21/2021 Diagnostic quality: Satisfactory Lung Nodules: No new or enlarging lung nodules. Chronic emphysema. Heart: Normal size heart. Extensive coronary artery calcifications. No pericardial or pleural effusio n. Other findings: Pulmonary artery is enlarged. Extensive atherosclerosis abdominal aorta. CT/CT lung screening [id number] IMPRESSION: LUNG-RADS: 1-Negative FOLLOW UP: 12 Month: Continue annual screening with LDCT OTHER FINDINGS (S MODIFIER): None.
== END 2022-03-26 14:25 | disposition home or self-care (01) ==
LOC: RAD 14:26
PROVIDERS: PCP Family Medicine; Visit Provider Internal Medicine Pulmonary Disease
DX: Z12.2 Encounter for screening for malignant neoplasm of respiratory organs (principal); F17.210 Nicotine dependence, cigarettes, uncomplicated
CPT/HCPCS: 71271

== ENCOUNTER 2022-03-26 14:24 | Outpatient (CLI) | payer MEDICARE, MEDICAID, SELFPAY ==
--- NOTE | 2022-03-26 15:00 | CT_ITS ---
WS: [email or web address] CTA ABDOMINAL AORTA WITH RUNOFF TECHNIQUE: Contrast enhanced CTA of the abdominal aorta with bilateral lower extremity runoff. Multip lanar reformatted images were obtained. MIP reformats were also reviewed. CLINICAL INFORMATION: PAD, claudication COMPARISON: February 24, 2021 DLP: 905.[address] scans at [facility] use at least one of these dose optimization techniques: automated e xposure control; mA and/or kV adjustment per patient size (includes targeted exams where dose is matc hed to clinical indication); or iterative reconstruction. FINDINGS: Dense calcified atheromatous disease abdominal aorta. Moderate stenosis of the celiac origi n with dense calcification. Severe stenosis at the SMA origin with dense calcified atheromatous disea se. JAZMIN is patent. Dense calcified atheromatous disease at the renal artery ostia bilaterally severe RIGHT and moderate LEFT renal artery stenosis. RIGHT: Dense RIGHT common iliac artery calcification. RIGHT external iliac artery is patent with dens e calcification. Internal iliac artery is patent. RIGHT common femoral artery is patent with approxim ately 50% calcification. Superficial femoral artery and deep femoral arteries are patent. Moderate se gmental stenosis superficial femoral artery which remains patent to the popliteal hiatus. Severe sten osis with near occlusion at the popliteal hiatus. Severe stenosis and near occlusion just above-the-k nee. Popliteal artery reconstitutes just above the knee and is patent to the trifurcation. Three-vess el runoff to the ankle. LEFT: Densely calcified common iliac artery with moderate segmental stenosis remains patent. Densely calcified internal iliac artery. External iliac artery remains patent with 60% stenosis at the origin . External iliac artery is patent. Approximately 70-80% stenosis common femoral artery in the groin. Superficial femoral artery is occluded at the origin. Deep femoral artery is patent. Superficial femo ral artery reconstitutes in the proximal thigh with a tiny amount of flow to the adductor hiatus. Mul tifocal moderate to severe segmental stenosis involving the popliteal artery which is essentially occ luded just above the knee. This reconstitutes in the popliteal fossa and is patent to the trifurcatio n. Densely calcified proximal anterior tibial artery and tibioperoneal trunk with relatively symmetri c three-vessel runoff to the ankle. Bibasilar atelectasis. Atelectasis in the lingula. Diffuse fatty infiltration of the liver. Hepatomeg kalpana. Normal GE junction. Normal pancreatic parenchymal enhancement. Splenic artery calcification. Adr enal glands are normal. Normal renal parenchymal enhancement. No hydronephrosis. Normal spleen. No high-grade small or large bowel obstruction. Mild chronic compression superior endplate L3 with sc lerosis is unchanged from previous. CT/CT angio abd aorta runof [id number] IMPRESSION: Overall high-grade multifocal LEFT popliteal artery stenosis appear s progressed compared to 2020. No other remarkable interval changes regarding the runoff. 1. Densely calcified abdominal aorta. No aneurysm. 2. Moderate stenosis celiac origin with severe stenosis SMA origin. 3. Severe RIGHT and moderate LEFT stenosis renal artery ostia bilaterally. 4. RIGHT: Approximately 50% stenosis involving the RIGHT common femoral artery . Superficial femoral artery is somewhat diminutive but patent with moderate mu ltifocal segmental stenosis. High-grade 80-90% stenosis involving the poplitea l artery at the adductor hiatus and popliteal artery just above the knee. Three -vessel runoff to the RIGHT ankle with calcification involving the proximal ant erior tibial and tibioperoneal trunk. Distal calf arteries are patent. 5. LEFT: 60% stenosis involving the external iliac artery origin. 70-80% steno sis LEFT common femoral artery in the groin. Superficial femoral artery is occl uded at the origin with a tiny amount of reconstituted flow in the proximal and mid thigh. High-grade stenosis involving the popliteal artery with near occlus ion just above the knee. This reconstitutes in the popliteal fossae with relati vely normal three-vessel runoff distally. Similar-appearing calcification invol ving the proximal anterior tibial and tibioperoneal trunk. 6. Additional nonvascular findings described above.
[2022-03-26 15:25] LABS: Blood Urea Nitrogen 17 mg/dL (8-23)
[2022-03-26] MEDS: iohexol 350 mg/mL 100 mL Btl IV (15:45)
== END 2022-03-26 14:25 | disposition home or self-care (01) ==
LOC: RAD 14:26
PROVIDERS: PCP Family Medicine; Visit Provider Nurse Practitioner Family
DX: I73.9 Peripheral vascular disease, unspecified (principal); I70.0 Atherosclerosis of aorta; I77.4 Celiac artery compression syndrome; I70.1 Atherosclerosis of renal artery
CPT/HCPCS: 75635; 82565; 84520

== ENCOUNTER 2022-05-06 11:10 | Outpatient (CLI) | payer MEDICARE, MEDICAID, SELFPAY ==
--- NOTE | 2022-05-06 12:01 | MM_ITS ---
WS: [email or web address] BILATERAL SCREENING DIGITAL TOMOSYNTHESIS MAMMOGRAM WITH CAD HISTORY: SCREEN COMPARISON: 11/03/2020 and 10/03/2018 Bilateral CC and MLO views with tomosynthesis and synthetic mammography submitted. Computer aided det ection analyzed. Breast composition: The breasts are heterogeneously dense, which may obscure small masses. No suspici ous masses, microcalcifications or architectural distortion. Bilateral asymmetries. Long-term stabili ty 12 mm ovoid nodule in the anterior RIGHT breast. Benign calcifications in each breast. MM/[place] [id number] IMPRESSION: BI-RADS: 2-Benign FOLLOW UP: 1 Year Follow-up
== END 2022-05-06 11:11 | disposition home or self-care (01) ==
LOC: RAD 11:11
PROVIDERS: PCP Family Medicine; Visit Provider Family Medicine
DX: Z12.31 Encounter for screening mammogram for malignant neoplasm of breast (principal)
CPT/HCPCS: 77063; 77067

== ENCOUNTER 2022-05-25 05:55 | Outpatient (CLI) | payer MEDICARE, MEDICAID, SELFPAY ==
[2022-05-25] VITALS (30 sets, daily range): BP systolic 85–164; BP diastolic 38–102; PULSE 63–77; RESP 15–23; TEMP 37; O2SAT 93–99; BMI 29.5
[2022-05-25 06:28] LABS: Basophils # 0.1 10^3/uL (0.0-0.1); Basophils % 0.7 %; Hematocrit 40.1 % (37.0-47.0); Hemoglobin 13.2 g/dL (11.5-15.3); Lymphocytes # 2.2 10^3/uL (0.8-4.8); Lymphocytes % 22.5 %; Mean Corpuscular HGB Conc 32.9 g/dL (30.0-36.0); Mean Corpuscular Hemoglobin 29.4 pg (28.0-34.0); Mean Corpuscular Volume 89.3 fl (81-99); Monocytes # 0.7 10^3/uL (0.2-0.9); Monocytes % 6.8 %; Neutrophils # 6.85 10^3/uL (1.8-7.7); Neutrophils % 69.5 %; Nucleated Red Blood Cells % 0 %; Platelet Count 343 10^3/cmm (130-400); Red Blood Count 4.49 10^6/uL (4.1-5.3); Red Cell Distribution Width 13.2 % (12.1-15.1); White Blood Count 9.9 10^3/uL (4.0-10.0)
[2022-05-25 06:43] LABS: Anion Gap 14.5 (5-19); Blood Urea Nitrogen 16 mg/dL (8-23); Calcium 9.3 mg/dL (8.5-10.5); Carbon Dioxide 26 mmol/L (22-29); Chloride 96 mmol/L (98-107); Glucose 130 mg/dL (65-115); Osmolality Calculated 277 mOsm/kg (285-295); Potassium 4.5 mmol/L (3.5-5.1); Sodium 132 mmol/L (136-145)
[2022-05-25] MEDS: diphenhydrAMINE 50 mg Capsule PO (06:59)
--- NOTE | 2022-05-25 06:59 | P.HP_ITS ---
Providers/Chief Complaint Admitting Physician: zeeshan Primary Care Provider: Cezar Lorenz MD Chief Complaint: I77.9 History of Present Illness Eula Walter is a 72 year old female who was scheduled today for lower extremity angiography by the nurse practitioner. She was last seen in the office on January 20. She complained at that time of worsening shortness of breath and claudication. She was not able to walk without fatigue and cramping in her upper legs. At that time she was about 8 months out from a peripheral angiogram which occurred in May of last year now a year ago. There were areas of narrowing but no areas which required intervention. I am not really sure what is happened since but she is apparently still having discomfort. Someone ordered a CT angiogram of the lower abdominal aorta with runoff. This was done on March 26 and the findings were a popliteal artery occlusion on the right with reconstitution just above the knee and three-vessel runoff to the ankle. On the left there was a 60% external iliac artery stenosis and 70 to 80% common femoral artery stenosis. The superficial femoral artery is apparently now occluded at the origin. Despite this patient states that her right leg hurts worse than her left leg. She has not developed any sores or lesions on her legs or feet. She is a smoker. To my knowledge she is not a diabetic. Review of Systems Narrative: Her review of systems is positive in nearly every distribution. She complains of shortness of breath, pain in the legs among others. Medications/Allergies Home Medications Medication Instructions Recorded Confirmed Last Taken Type albuterol sulfate 90 mcg/actuation 2 puff inhalation Q4H PRN 03/19/20 05/24/22 05/25/22 05:00 History aerosol inhaler (Ventolin HFA) shortness of breath or wheezing aspirin 81 mg tablet,delayed 81 mg PO BEDTIME 03/19/20 05/24/22 05/24/22 21:00 History release (Adult Aspirin Regimen) benazepril 40 mg tablet 40 mg PO QAM 03/19/20 05/24/22 05/25/22 05:00 History lorazepam 0.5 mg tablet 0.5 mg PO BEDTIME PRN sleep 03/19/20 05/24/22 05/18/21 22:00 History simvastatin 40 mg tablet 40 mg PO BEDTIME 03/19/20 05/25/22 05/24/22 21:00 History cholecalciferol (vitamin D3) 25 25 mcg PO QAM 12/31/20 05/24/22 05/25/22 05:00 History mcg (1,000 unit) capsule ipratropium 0.5 mg-albuterol 3 mg 3 ml inhalation Q6H PRN shortness 02/02/21 05/24/22 05/25/22 05:00 Rx (2.5 mg base)/3 mL nebulization of breath or wheezing #360 mL soln nitroglycerin 0.4 mg sublingual 0.4 mg sublingual Q5M PRN chest 09/03/21 05/24/22 Unknown Rx tablet (Nitrostat) pain #25 tabs gabapentin 300 mg capsule 300 mg PO Q8H 09/08/21 05/24/22 Unknown History nicotine (polacrilex) 2 mg gum 2 mg buccal Q2H PRN nicotine 09/24/21 05/24/22 Unknown Rx cravings #50 ea isosorbide mononitrate 30 mg 30 mg PO DAILY #90 tabs 10/28/21 05/24/22 05/24/22 21:00 Rx tablet,extended release 24 hr apremilast 30 mg tablet (Otezla) 30 mg PO BID #60 tabs 12/09/21 05/24/22 05/25/22 05:00 Rx hydrocodone 7.5 mg-acetaminophen 1 tab PO BID PRN Pain 12/10/21 05/24/22 Unknown History 325 mg tablet Vitamin B-12 1 tab PO QAM 12/29/21 05/25/22 05/24/22 21:00 History cyclobenzaprine 5 mg tablet 5 mg PO DAILY PRN Muscle Spasm 12/29/21 05/24/22 Unk nown History omega-3 fatty acids 1,000 mg 1,000 mg PO QAM 12/29/21 05/24/22 05/25/22 05:00 History capsule paroxetine HCl 40 mg tablet 40 mg PO BEDTIME 12/29/21 05/24/22 Unknown History budesonide 160 mcg-glycopyr 9 2 inh inhalation BID #10.7 grams 02/19/22 05/24/22 05/24/22 21:00 Rx mcg-formot 4.8 mcg/actuation HFA inhaler ([employer]) metoprolol tartrate 25 mg tablet 12.5 mg PO BID #90 tabs 03/17/22 05/24/22 05/25/22 05:00 Rx cefuroxime axetil 500 mg tablet See Rx Instructions .Route 05/04/22 05/24/22 05/24/22 21:00 Rx .COMPLEX #60 tabs Allergies Allergy/AdvReac Type Severity Reaction Status Date / Time No Known Allergies Allergy Verified 05/24/22 12:00 PFSH Acute PFSH: Medical History Encounter for screening for lung cancer History of COPD History of hypertension Hx of anxiety disorder Hx of colonic polyps Hx of gastroesophageal reflux (GERD) Hx of hyperlipidemia Hx of hyperparathyroidism Hx of irritable bowel syndrome Hx of sleep apnea Insomnia Mixed stress and urge urinary incontinence Peripheral arterial occlusive disease Recurrent UTI Surgical History History of bilateral cataract extraction Hx of carpal tunnel repair Hx of colonoscopy Hx of esophagogastroduodenoscopy Hx of parathyroidectomy Hx of tubal ligation Family History Brother Kidney stone Mother , in late 60s Cancer Breast Diabetes Brain tumor Father , in late 60s Encysted lung fluid Social History Smoking and tobacco status: current every day smoker cigarettes Packs smoked per day: 0.5 Years cigarettes smoked: 40 Quit status (tobacco): considering quitting Second hand smoke exposure: No Smoking risk assessment/counseling performed?: Yes Alcohol intake: current Alcohol intake frequency: holidays/special occasions only Lives independently: Yes Household members: none Marital status: Current occupational status: retired Pets and animals: No History of recent travel: No Current gender identity: Female Vitals/I&O/Wt Last Vital Signs Temp 98.6 F 05/25/22 06:26 Pulse 69 05/25/22 06:26 Resp 18 05/25/22 06:26 BP 164/80 05/25/22 06:26 Pulse Ox 93 05/25/22 06:26 O2 Del Method 05/25/22 06:26 Weight last 48 hrs Weight 172 lb Physical Exam Narrative: GENERAL: In general she is awake and alert HEENT: Exam within normal limits. NECK: Supple without jugular vein distention. The carotid upstroke is normal without bruits. BACK: Exam normal. LUNGS: Clear. HEART: Regular rate and rhythm. ABDOMEN: Benign without organomegaly or tenderness. EXTREMITIES: No edema. She does have dorsalis pedis pulses on both feet. NEUROLOGIC: Exam normal. SKIN: Unremarkable. Data : 05/25/22 06:15 05/25/22 06:15 A&P Assessment and plan (1) History of COPD: (2) Hx of sleep apnea: (3) History of hypertension: (4) Peripheral arterial occlusive disease: (5) Hx of hyperlipidemia: (6) Exertional dyspnea: (7) Hypertension: Plan I questioned her carefully about which leg was worse. She states the right leg is worse so we will enter on the left. This is somewhat surprising given the anatomy appears to be worse on the left according to the CT angiogram. Attestations Medical Necessity Statement*: Outpatient in a bed for purposes of lower extremity angiography. Coding Level of Care Code New Pt Acute Lead Fire Protection Engineer for [facility] Fwd Patient Type New History Detailed Exam Detailed Medical Decision Making Moderate Complexity Diagnoses History of COPD Z87.09 Hx of sleep apnea Z86.69 History of hypertension Z86.79 Peripheral arterial occlusive disease I77.9 Hx of hyperlipidemia Z86.39 Exertional dyspnea R06.00 Hypertension I10
--- NOTE | 2022-05-25 07:00 | XACV_ITS ---
Ht: 163 cm Wt: 78 kg BSA: 1.90 m2 Any Known Allergies: No known allergies Gender: Female : 1950 Exam Type: Invasive Peripheral Vascular Procedure(s): Procedure Description: Peripheral Cath Diagnostic Procedure Procedure Description: Lower extremities' angiography Exam Priority: Routine Lower Extremity Diagnostic Findings Patient was sent in today for peripheral angiography after a CTA with runoff was abnormal. Please see the history of present illness and the CTA runoff report for details. Patient states that her right leg is worse than her left leg with respect to pain.. The common iliac artery on the right is normal. Internal iliac is patent. The external iliac is normal. The common femoral artery exhibits an eccentric 50% stenosis in the midportion just at the level of the acetabulum. There is also a 20 to 30% eccentric stenosis more distally. The profunda femoris is patent. The superficial femoral artery contains a filling defect at the ostium however the flow beyond this is normal. Slightly farther down, there is a 40% napkin ring lesion and a 40% eccentric stenosis of the SFA. Beyond this, the SFA on the right is normal until it extends into the popliteal. There are minor luminal irregularities of the popliteal. There is three-vessel runoff below the right knee. There is a 70% stenosis of the proximal anterior tibial artery.. On the left, the common iliac is normal. The internal iliac is normal and patent. External iliac is normal. The common femoral is normal. The profunda femoris is a large hypertrophied artery which provides some collateral flow distally. The superficial femoral artery is small. There is a 60 to 70% stenosis at the ostium. More distally there is a 70% stenosis of the SFA. Beyond this the vessel is patent all the way to the popliteal. Once again, it is a small caliber vessel. The popliteal is patent. Below the knee the anterior tibial is patent. The peroneal artery appears to be patent. The posterior tibial may be occluded in the proximal portion but then reconstitutes distally at the ankle.. Conclusions Moderate peripheral arterial disease on the right. Moderate to severe peripheral arterial disease on the left. Recommendations From the anatomy, this patient could be treated medically. She does have palpable pulses in both feet. If the left leg is significantly painful and she has classic claudication one could intervene on the ostial and mid SFA if necessary. Hemodynamic Data Phase:Rest AO : 179.0 / 117.0 ( 142.0 ) @ 7:47:00 AM Access Site Site: Left Femoral artery Sheath Size: 6 Fr Hemost... Success: Unsuccessful Procedure Details Findings Procedure Consent Obtained. Admit Source: In Patient. Pre-Procedure Time Out. Identified patient by full name and date of as verbalized by the patient/guarantor. Does the consent match the physician's order: Yes. Accurate & Complete Informed Consent: Yes. Inpatient/Outpatient History & Physical on Chart: Yes. If H&P is completed, is and addenduem needed: No; If yes, is the addendum complete: N/A. Visualize and Verify Site with Patient/Guarantor: N/A. Relevant Radiology Images available: Yes. The risks, benefits, and alternatives of sedation and/or procedure were discussed by physician. The patient agrees to continue. Procedure started. Correct patient, site and procedure confirmed by cath team. PERRLA. Strong, equal hand regional safety manager bilaterally. Lungs clear x 5 lobes. IV Site on Arrival: 20 gauge in the right anticubital. IV Fluids: 0.9% NaCl at KVO. 0 mL infused prior to cathodic protection technician. Pre Procedural Pulses: bilateral dorsalis pedis was 3+. Pre Procedural Pulses: right posterior tibial was 1+. Pre Procedural Pulses: left posterior tibial was Doppled. Oxygen started at 2liters/min via nasal canula. right groin was prepped with chloroprep then draped in the usual sterile fashion. left groin was prepped with chloroprep then draped in the usual sterile fashion. Physician notified. 98% pulse ox. Baseline sample Acquired. HR: 68 BPM. Physician arrived. 98% pulse ox. Physician scrubbed in. Time out performed with cath team. Lidocaine 1% infiltrated to the left groin. Arterial access obtained. A 5FrFr RIM catheter in over wire. wire out. Right external iliac selected and arteriogram with runoff performed @ 10 mL/sec for a total of 30 mL. Catheter out. Sheath injected in Left common femoral artery and runoff performed. 94% pulse ox. Left common iliac selected and arteriogram performed. Sheath(s) sutured into position with 2-0 silk and sterile 4x4's and Op-site applied over the site. No oozing or signs and symptoms of hematoma noted. Arterial sheath flushed and connected to tranducer and pressure bag with heparinized saline. Post Procedure: Pulses reassessed and unchanged. PERRLA. Strong, equal hand regional safety manager bilaterally. No VTE prophylaxis required. Medication's Wasted: Heparin = 4000 units. Total IV fluids: 44 mL. 90 pulse ox. Estimated blood loss: 5mL-10mL. Responsiveness - Normal response to verbal stimuli; alert and oriented, PERRLA. Airway - Unaffected, no intervention required; spontaneous ventilation. Circulation: W/N/L, pulses unchanged. Nausea/Vomiting: No. Procedure completed. Patient transferred by bed to 1st floor. Vital chart was stopped. Procedure Medications Start: 7:20 AM Stop: 7:20 AM Medication: Versed Amount: 1 mg Route: I.V. Start: 7:20 AM Stop: 7:20 AM Medication: Fentanyl Amount: 50 mcg Route: I.V. Start: 7:30 AM Stop: 7:30 AM Medication: Versed 1 mg and Fentanyl 25 mcg Route: I.V. Start: 7:38 AM Stop: 7:38 AM Medication: Versed Amount: 1 mg Route: I.V. Start: 7:42 AM Stop: 7:42 AM Medication: Fentanyl Amount: 25 mcg Route: I.V. Start: 7:52 AM Stop: 7:52 AM Medication: Versed Amount: 1 mg Route: I.V. I, the attending physician, have reviewed and verified all procedure medications. Yes, all medications given per verbal order History/Risk Factors Hypertension: Yes Dyslipidemia: Yes Peripheral Arterial Disease (PAD): Yes Obesity: No Renal Disease: No Tobacco Use: Current/Recent(w/in 1 year) Prior Interventions PCI: No CABG: No Valve Surgery: No Report Signatures Finalized by Dr. Nicholas Pearson MD on 05/25/2022 08:14 AM
--- NOTE | 2022-05-25 11:53 | PC.CHAP ---
Pastoral Care Encounter/Spiritual Assessment Type of Contact [] Declined gin operator visit [] Patient/Family/Request visit [] Outpatient visit [] Follow-up visit [] Physician referral [] Code/Alert [x] Routine visit [] Staff referral [] Actively dying [] Patient sleeping [] Family support [] [] Out of room [] Palliative care [] [] Receiving care in room [] Pre-surgical visit [] Trauma [] Long length of stay [] ICU visit [x] Other: needing for quick recovery Relational/Emotional Strength [] Patient feels connected with others/family/visitors/staff [] Distress [] Loneliness/isolation [] Abandonment Spirituality of Patient [] Person of Bessy [] Attends Pentecostal of their Bessy [] Believes in Prayer [] Reads Bible or Buddhist materials [] There are Spiritual issues to be addressed Gel Coat Sprayer Interventions [x] Prayer [] Active listening [] Non-anxious presence [] Spiritual/emotional support [] Crisis/trauma care [] Spiritual counseling [] Bereavement support [] Provided bereavement packet [] Provided Bible/devotional materials [] Provided toy/stuffed animal, coloring book to patient or family member [] Provided Communion [] Anointing/[place] [] Salvation [] Completed spiritual assessment [] Other: Impact on Illness or Injury [] Angry [] Fearful [] Anxious [] Often cries [] Exhaustion [] Unable to work [] Unable to attend adventist [] Unable to walk/stand [] Unable to read [] Unable to drive [] Unable to eat/drink [] Unable to sleep [] Unable to be with family [] Patient intubated [] Other: Summary Time spent with patient Pastoral Care Encounter/Spiritual Assessment Type of Contact [] Declined gin operator visit [] Patient/Family/Request visit [] Outpatient visit [] Follow-up visit [] Physician referral [] Code/Alert [] Routine visit [] Staff referral [] Actively dying [] Patient sleeping [] Family support [] [] Out of room [] Palliative care [] [] Receiving care in room [] Pre-surgical visit [] Trauma [] Long length of stay [] ICU visit [] Other: Relational/Emotional Strength [] Patient feels connected with others/family/visitors/staff [] Distress [] Loneliness/isolation [] Abandonment Spirituality of Patient [] Person of Bessy [] Attends Pentecostal of their Bessy [] Believes in Prayer [] Reads Bible or Buddhist materials [] There are Spiritual issues to be addressed Gel Coat Sprayer Interventions [] Prayer [] Active listening [] Non-anxious presence [] Spiritual/emotional support [] Crisis/trauma care [] Spiritual counseling [] Bereavement support [] Provided bereavement packet [] Provided Bible/devotional materials [] Provided toy/stuffed animal, coloring book to patient or family member [] Provided Communion [] Anointing/Hardin [] Salvation [x] Completed spiritual assessment [] Other: Impact on Illness or Injury [] Angry [] Fearful [] Anxious [] Often cries [] Exhaustion [] Unable to work [] Unable to attend adventist [] Unable to walk/stand [] Unable to read [] Unable to drive [] Unable to eat/drink [] Unable to sleep [] Unable to be with family [] Patient intubated [] Other: Summary Time spent with patient
--- NOTE | 2022-05-25 12:27 | PC.NURSE ---
received from cardiac catheterization laboratory technician at 0820.report received.pt is drowsy but easily awakened to sound/touch.sr on monitor.left femoral arterial sheath intact to pressurized system.drsg is dry and intact.no hematoma noted.dopplerable dp/pulse noted.left leg is warm to touch and with brisk capillary refill.pt instructed in activity restrictions and instructed to notify staff for any bleeding, pain,numbness or for any complaints at all.pt verb understanding of instructions
--- NOTE | 2022-05-25 12:32 | PC.NURSE ---
left femoral arterial sheath removed at 0830 and manual pressure applied x 20 min.vss through-out procedure.left leg remains warm t touch and with brisk capillary refill.site dressed with 2x2 gauze and secured with biocclusive drsg.pt instructed in activity restrictions s/p femoral artery sheath pull...and instructed to notify staff for any bleeding,pain,numbness..or for any concerns at all.pt verb understanding of instructions
--- NOTE | 2022-05-25 14:49 | PM.DCS ---
Discharge Providers Date of Admission: May 25, 2022 Date of Discharge: May 25, 2022 Attending Provider at Admission: zeeshan Attending Provider at Discharge: Nicholas Pearson MD Primary Care Provider: Cezar Lorenz MD Diagnoses at Discharge Discharge Diagnosis (1) History of COPD: Status: Acute (2) Hx of sleep apnea: Status: Acute (3) History of hypertension: Status: Acute (4) Peripheral arterial occlusive disease: Status: Acute (5) Hx of hyperlipidemia: Status: Acute (6) Exertional dyspnea: Status: Acute (7) Hypertension: Status: Acute Reason for Visit Reason for Visit: I77.9 Brief History: Patient was sent over by the nurse practitioner for a lower extremity angiogram. She was last seen in the office in January. A CTA with runoff suggested bilateral superficial femoral artery or popliteal occlusions. Conventional angiography a year ago did not reveal anything which required intervention. She is having rather atypical pain in both legs. She has to think for a while to tell whether or not the pain is worse in the right leg or the left leg. She finally thought it would be on the right. She was admitted for purposes of angiography. Hospital Course Hospital Course The angiogram was done from the left common femoral artery. On the right the iliac and femoral arteries are normal. There is a filling defect in the ostial SFA without any reduction in flow. There were 2 or 340% stenoses of the SFA. The popliteal is normal and she has three-vessel runoff below the right knee. On the left there is a 60 to 70% stenosis of the ostial superficial femoral artery which was there a year ago. That vessel is quite small and the profunda femoris artery is actually larger than the SFA. There are couple of other 40 to 50% stenoses in the midportion. The popliteal is open and there is three-vessel runoff below the left knee. No intervention was performed. At the time of discharge, her entry site is flat, dry without bleeding, hematoma or other vascular anomaly. She has been instructed not to lift anything more than 5 pounds for 2 days. No medication changes are recommended. Physical Exam Narrative: GENERAL: Comfortable at rest HEENT: Exam within normal limits. NECK: Supple without jugular vein distention. The carotid upstroke is normal without bruits. BACK: Exam normal. LUNGS: Clear. HEART: Regular rate and rhythm. ABDOMEN: Benign without organomegaly or tenderness. EXTREMITIES: No edema. At discharge the left groin site is stable, no swelling, no bleeding, no hematoma and no vascular anomaly. NEUROLOGIC: Exam normal. SKIN: Unremarkable. Discharge Data Studies Completed and Pending Completed Studies During Hospitalization Category Date Time Status SEWING MACHINE REPAIRER request for service Routine Exams 05/25/22 07:00 Completed Laboratory Results WBC 9.9 10^3/uL (4.0-10.0) 05/25/22 06:15 RBC 4.49 10^6/uL (4.1-5.3) 05/25/22 06:15 Hgb 13.2 g/dL (11.5-15.3) 05/25/22 06:15 Hct 40.1 % (37.0-47.0) 05/25/22 06:15 MCV 89.3 fl (81-99) 05/25/22 06:15 MCH 29.4 pg (28.0-34.0) 05/25/22 06:15 MCHC 32.9 g/dL (30.0-36.0) 05/25/22 06:15 RDW 13.2 % (12.1-15.1) 05/25/22 06:15 Plt Count 343 10^3/cmm (130-400) 05/25/22 06:15 MPV 9.0 fL (7.4-10.4) 05/25/22 06:15 Neut % (Auto) 69.5 % 05/25/22 06:15 Lymph % (Auto) 22.5 % 05/25/22 06:15 [place] % (Auto) 6.8 % 05/25/22 06:15 Eos % (Auto) 0.0 % 05/25/22 06:15 Baso % (Auto) 0.7 % 05/25/22 06:15 Neut # (Auto) 6.85 10^3/uL (1.8-7.7) 05/25/22 06:15 Lymph # (Auto) 2.2 10^3/uL (0.8-4.8) 05/25/22 06:15 [place] # (Auto) 0.7 10^3/uL (0.2-0.9) 05/25/22 06:15 Eos # (Auto) 0.0 10^3/uL (0.0-0.8) 05/25/22 06:15 Baso # (Auto) 0.1 10^3/uL (0.0-0.1) 05/25/22 06:15 Nucleated RBC % (auto) 0 % 05/25/22 06:15 Nucleated RBCs # 0.0 /100WBC 05/25/22 06:15 Sodium 132 mmol/L (136-145) L 05/25/22 06:15 Potassium 4.5 mmol/L (3.5-5.1) 05/25/22 06:15 Chloride 96 mmol/L (98-107) L 05/25/22 06:15 Carbon Dioxide 26 mmol/L (22-29) 05/25/22 06:15 Anion Gap 14.5 (5-19) 05/25/22 06:15 BUN 16 mg/dL (8-23) 05/25/22 06:15 Creatinine 0.7 mg/dL (0.5-0.9) 05/25/22 06:15 GFR Calculation Not Reportable 05/25/22 06:15 Glucose 130 mg/dL (65-115) H 05/25/22 06:15 Calculated Osmolality 277 mOsm/kg (285-295) L 05/25/22 06:15 Calcium 9.3 mg/dL (8.5-10.5) 05/25/22 06:15 Procedures Performed Lower extremity angiography, bilateral Vitals Last Vital Signs Temp 98.6 F 05/25/22 06:26 Pulse 67 05/25/22 14:10 Resp 16 05/25/22 13:45 BP 130/70 05/25/22 13:45 Pulse Ox 97 05/25/22 14:10 O2 Del Method 05/25/22 14:10 O2 Flow Rate 2 05/25/22 14:10 Discharge Plan Discharge Patient Disposition: Home Prescriptions: Continued cholecalciferol (vitamin D3) 25 mcg (1,000 unit) capsule 25 mcg PO QAM gabapentin 300 mg capsule 300 mg PO Q8H hydrocodone-acetaminophen 7.5-325 mg tablet 1 tab PO BID PRN (Reason: Pain) lorazepam 0.5 mg tablet 0.5 mg PO BEDTIME PRN (Reason: sleep) simvastatin 40 mg tablet 40 mg PO BEDTIME benazepril 40 mg tablet 40 mg PO QAM aspirin [Adult Aspirin Regimen] 81 mg tablet,delayed release (DR/EC) 81 mg PO BEDTIME albuterol sulfate [Ventolin HFA] 90 mcg/actuation HFA aerosol inhaler 2 puff INHALATION Q4H PRN (Reason: shortness of breath or wheezing) ipratropium-albuterol 0.5 mg-3 mg(2.5 mg base)/3 mL solution for nebulization 3 ml inhalation Q6H PRN (Reason: shortness of breath or wheezing) Qty: 360 3RF nitroglycerin [Nitrostat] 0.4 mg tablet, sublingual 0.4 mg SUBLINGUAL Q5M PRN (Reason: chest pain) Qty: 25 3RF Rx Instructions: do not exceed 3 doses per episode nicotine (polacrilex) 2 mg gum 2 mg buccal Q2H PRN (Reason: nicotine cravings) Qty: 50 3RF isosorbide mononitrate 30 mg tablet extended release 24 hr 30 mg PO DAILY Qty: 90 3RF Otezla 30 mg tablet 30 mg PO BID Qty: 60 6RF Breztri Aerosphere 160-9-4.8 mcg/actuation HFA aerosol inhaler 2 inh inhalation BID Qty: 10.7 3RF metoprolol tartrate 25 mg tablet 12.5 mg PO BID Qty: 90 3RF cefuroxime axetil 500 mg tablet See Rx Instructions .ROUTE .COMPLEX Qty: 60 2RF Dose Instruction: TAKE 1 TABLET BY MOUTH TWICE DAILY Rx Instructions: TAKE 1 TABLET BY MOUTH TWICE DAILY omega-3 fatty acids 1,000 mg Capsule 1,000 mg PO QAM paroxetine HCl 40 mg tablet 40 mg PO BEDTIME cyclobenzaprine 5 mg tablet 5 mg PO DAILY PRN (Reason: Muscle Spasm) Vitamin B-12 1 tab PO QAM Discharge Orders: Discharge Order (Routine); Ordered 05/25/22 Ordered By: Nicholas Pearson Referrals: Tasneem Fox FNP [Nurse Practitioner] - 7-10 days (Left groin check and chem panel) Diet: Usual diet Activity: Increase activity as tolerated and Limit activity as instructed Patient Instructions: Opioid Safety Activity Restrictions/Additional Instructions: No lifting over 5 pounds for 2 days. Discharge Attestations Time Spent in Discharge Care*: less than 30 min Quality Metrics Clinical Quality Measures [ No reported AMI, CVA or VTE this stay] Coding Level of Care Code Established Pt Acute Chg FW DC note Patient Type Established History Detailed Exam Detailed Medical Decision Making Moderate Complexity Diagnoses History of COPD Z87.09 Hx of sleep apnea Z86.69 History of hypertension Z86.79 Peripheral arterial occlusive disease I77.9 Hx of hyperlipidemia Z86.39 Exertional dyspnea R06.00 Hypertension I10
--- NOTE | 2022-05-25 16:06 | PC.NURSE ---
pt ambulated in [place] with standby assist .did well.discharge instructions given and explained.pt and daughter verb understanding of instructions.discharged via w/c to exit at this time.daughter to drive pt home
== END 2022-05-25 16:11 | disposition home or self-care (01) ==
LOC: CCL 05:58 → CSU 08:12
PROVIDERS: PCP Family Medicine; Visit Provider Internal Medicine Cardiovascular Disease
DX: I73.9 Peripheral vascular disease, unspecified (principal); Z87.09 Personal history of other diseases of the respiratory system; Z86.69 Personal history of other diseases of the nervous system and sense organs; Z86.79 Personal history of other diseases of the circulatory system; I77.9 Disorder of arteries and arterioles, unspecified; Z86.39 Personal history of other endocrine, nutritional and metabolic disease; R06.00 Dyspnea, unspecified; I10 Essential (primary) hypertension; E78.5 Hyperlipidemia, unspecified; F17.210 Nicotine dependence, cigarettes, uncomplicated
CPT/HCPCS: 36415; 75716; 80048; 85025; 96360; 99152; 99153; C1769; C1887; C1894; J1644; J2250; J3010; J7030; Q0163; Q9967

== ENCOUNTER → 2022-06-04 08:41 | Outpatient (BNVA) | payer MEDICARE, MEDICAID, SELFPAY | PROVIDERS: PCP Family Medicine; Visit Provider Nurse Practitioner Family | DX: I73.9 Peripheral vascular disease, unspecified (principal); F17.210 Nicotine dependence, cigarettes, uncomplicated | CPT/HCPCS: 36415; 80048; 99214 ==

== ENCOUNTER → 2022-06-16 10:51 | Outpatient (BNVA) | payer MEDICARE, MEDICAID, SELFPAY | PROVIDERS: PCP Family Medicine; Referring Provider Dermatology; Visit Provider Specialist | DX: R20.0 Anesthesia of skin (principal) | CPT/HCPCS: 73060; 99204 ==

== ENCOUNTER 2022-06-23 10:14 | Outpatient (CLI) | payer MEDICARE, MEDICAID, SELFPAY ==
--- NOTE | 2022-06-23 10:22 | ECG_ITS ---
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 Interpretive Statements NAME OF STUDY: LEXISCAN SESTAMIBI STRESS TEST INDICATION: [CONNOLLY, ] Procedure: At the baseline, the blood pressure was 152/77 mmHg with a heart rate of 63 bpm. The electrocardiogram showed normal sinus rhythm, normal axis with normal ST and T's. The Lexiscan was infused over a period of 20 seconds. A total of 0.4 mg of Lexiscan was infused. The stress phase was continued for a total of 5 minutes. Heart rate was at the end of stress phase was 72 bpm and a blood pressure of 187/71 mmHg. The EKG at the peak infusion revealed normal sinus rhythm with no significant ST-T wave changes. Sestamibi was injected 20 seconds after the Lexiscan infusion. Blood pressure at the end of recovery phase was 188/73 mmHg with a heart rate of 70 bpm. Conclusion: 1. Normal EKG response to Lexiscan infusion 2. No Lexiscan induced chest pain or cardiac arrhythmia. 3. Normal blood pressure and heart rate response. 4. Sestamibi/sestamibi perfusion scan pending; see separate report. Electronically Signed On 07-11-2022 13:21:59 RISK ASSESSMENT ANALYST by Francisco Garcia M.D. [id number]
--- NOTE | 2022-06-23 10:22 | NMCV_ITS ---
NM rowdy perf SPECT r/s* [id number] Eula Walter Age: 72 Gender: F : 1950 Exam Date: 06/23/2022 10:22 Ordering Phys: Tasneem Fox Technologist: LIZETTE Sanders Exam Location: [facility] Indications: DISEASE OF THE ARTERIES, DISEASE OF RESPIRATORY STRESS TEST Please see separate stress test report in [facility] for full findings IMAGE PROTOCOL Rest/Stress 1 Lexiscan Day Radiopharmaceutical Dose (mCi) Administration Site Administered by Rest: Tc-99m 10.1 IV LIZETTE Carrillo Sestamibi Stress:Tc-99m 33.0 IV LIZETTE Carrillo Sestamibi Rest: 23-Jun-2022 60 Discovery 630 Stress: 23-Jun-2022 30 Discovery 630 0.4mg Lexiscan. Supine position only as patient was unable to lay prone. SPECT RESULTS Technical Quality: Excellent Raw Data Analysis: Normal Image Corrections: No attenuation or motion correction applied Summed Stress Score: 2 Summed Rest Score: 0 Summed Difference Score: 2 PERFUSION FINDINGS There is a small in size, reversible perfusion defect noted in the inferior and inferolateral wall. This is consistent with small area of ischemia in the RCA territory. FUNCTIONAL RESULTS (calculated via Gated SPECT) Stress Image LV EF (%): 65 Stress EDV (mL):78 TID: 1.14 Stress ESV (mL):27 FUNCTIONAL FINDINGS: There is normal left ventricular systolic function. IMPRESSIONS 1. Abnormal myocardial perfusion imaging with small area of ischemia noted in the RCA territory. 2. LV systolic function is normal Francisco Garcia MD (Electronically Signed) Final Date: 23 June 2022 15:23 S
[2022-06-23 11:11] VITALS: BMI 28.8
[2022-06-23] MEDS: regadenoson 0.4 Mg/5 ml Syringe IVP (11:57)
[2022-06-23 12:12] VITALS: BP 188/73; PULSE 73
== END 2022-06-23 10:15 | disposition home or self-care (01) ==
LOC: CDL 10:16
PROVIDERS: PCP Family Medicine; Visit Provider Nurse Practitioner Family
DX: R06.09 Other forms of dyspnea (principal); R06.02 Shortness of breath; I77.9 Disorder of arteries and arterioles, unspecified; I25.9 Chronic ischemic heart disease, unspecified
CPT/HCPCS: 36415; 78452; 93017; 96375; A9500; J2785

== ENCOUNTER → 2022-06-24 15:03 | Outpatient (BNVA) | payer MEDICARE, MEDICAID, SELFPAY | PROVIDERS: PCP Family Medicine; Visit Provider Orthopaedic Surgery | DX: M50.33 Other cervical disc degeneration, cervicothoracic region (principal); M47.22 Other spondylosis with radiculopathy, cervical region; I65.23 Occlusion and stenosis of bilateral carotid arteries; Z98.1 Arthrodesis status | CPT/HCPCS: 72050; 99204 ==

== ENCOUNTER 2022-07-06 08:26 | Outpatient (CLI) | payer MEDICARE, MEDICAID, SELFPAY ==
--- NOTE | 2022-07-06 08:45 | MR_ITS ---
WS: [id number] MRI RIGHT SHOULDER NONCONTRAST TECHNIQUE: Sagittal T2, coronal T1, T2 and proton density imaging. Axial gradient PDE imaging. CLINICAL INFORMATION: right arm pain and numbness COMPARISON: Radiograph June 16, 2022 FINDINGS: Moderate degenerative arthritis at the AC joint with mild edema. Slight subacromial spurring. Mild na rrowing of the subacromial space. Tendinopathy in the distal supraspinatus. Calcifications of the inf raspinatus insertion as seen on the recent radiograph. Infraspinatus is otherwise normal in appearanc e. Normal teres minor. Distal subscapularis tendon appears intact. Normal biceps tendon within the bicip ital groove. Intra-articular biceps tendon appears intact. Glenoid labrum appears grossly normal. No acute fractures. Calcific tendinitis at the infraspinatus insertion. MR/MR shoulder RT wo con* [id number] IMPRESSION: 1. Moderate arthritis AC joint with mild edema. Slight subacromial spurring. 2. Tendinopathy distal supraspinatus. No high-grade rotator cuff tears. 3. Calcifications of the distal infraspinatus insertion consistent with calcif ic tendinitis. 4. Normal biceps tendon in the bicipital groove. Normal intratesticular biceps tendon. 5. No other acute findings.
== END 2022-07-06 08:27 | disposition home or self-care (01) ==
LOC: RAD 08:27
PROVIDERS: PCP Family Medicine; Visit Provider Specialist
DX: R20.0 Anesthesia of skin (principal); R20.2 Paresthesia of skin; M13.811 Other specified arthritis, right shoulder; F17.210 Nicotine dependence, cigarettes, uncomplicated; N39.0 Urinary tract infection, site not specified; N39.46 Mixed incontinence; N13.30 Unspecified hydronephrosis
CPT/HCPCS: 73221; 99213

== ENCOUNTER 2022-07-29 10:46 | Outpatient (CLI) | payer MEDICARE, MEDICAID, SELFPAY ==
--- NOTE | 2022-07-29 11:00 | MR_ITS ---
WS: [id number] MRI CERVICAL SPINE NONCONTRAST HISTORY: Neck pain into RIGHT arm for 3 months. COMPARISON: No similar studies. Technique: Multiplanar, multisequence noncontrast imaging of the cervical spine. Prior anterior cervical fusion at C6-7. Interbody graft at C6-7 appears appropriate. Straightening an d reversal the normal cervical lordosis centered at C4-5. Reversal of curvature is causing also rever sherie of the normal course of the cervical cord. No signal abnormality within the cord. Disc spaces are desiccated and narrowed throughout the cervical spine. C5 retrolisthesis by 3.3 mm. Craniocervical junction, C1 and C2 relationship, odontoid process and soft tissues are normal. C2-C3: Normal. C3-C4: Mild osteophytic ridging with facet joint arthritis. Mild RIGHT foraminal narrowing. C4-C5: Moderate osteophytic ridging contacting the ventral cord and displacing the ventral cord. Mild to moderate central and bilateral foraminal stenosis due to osteophytic disease and facet arthritis. C5-C6: Diffuse annular disc bulging and osteophytic ridging with facet disease. Slight retrolisthesis of C5 is also contributing to the moderate central and bilateral foraminal stenosis. C6-C7: Mild osteophytic ridging with mild foraminal narrowing and facet arthritis. C7-T1: Significant stenosis. T3-4: Posterior facet arthritis/osteophyte encroaching and deforming the posterior thoracic cord. Paravertebral soft tissues are negative. MR/MR cervical spin wo con* [id number] IMPRESSION: 1. Anterior cervical fusion with interbody spacer at C6-7 appears intact. 2. Reversal the normal cervical lordosis centered at C4-5 displacing the cervi chaka spinal cord posterior. 3. Moderate central and bilateral foraminal stenosis at C5-6. 4. Multiple moderate central and bilateral foraminal stenosis at C4-5 predomin antly due to osteophytes. 5. Mild RIGHT foraminal stenosis at C3-4. 6. Mild bilateral foraminal stenosis at C6-7.
== END 2022-07-29 10:47 | disposition home or self-care (01) ==
LOC: RAD 10:46
PROVIDERS: PCP Family Medicine; Visit Provider Orthopaedic Surgery
DX: M54.2 Cervicalgia (principal); M48.02 Spinal stenosis, cervical region
CPT/HCPCS: 72141

== ENCOUNTER → 2022-08-02 09:13 | Outpatient (BNVA) | payer MEDICARE, MEDICAID, SELFPAY | PROVIDERS: PCP Family Medicine; Referring Provider Specialist; Visit Provider Specialist | DX: G56.01 Carpal tunnel syndrome, right upper limb (principal); M47.22 Other spondylosis with radiculopathy, cervical region | CPT/HCPCS: 95908; 95909 ==

== ENCOUNTER → 2022-08-03 13:26 | Outpatient (BNVA) | payer MEDICARE, MEDICAID, SELFPAY | PROVIDERS: PCP Family Medicine; Visit Provider Orthopaedic Surgery | DX: M47.22 Other spondylosis with radiculopathy, cervical region (principal) | CPT/HCPCS: 99214 ==

== ENCOUNTER → 2022-09-01 11:57 | Outpatient (BNVA) | payer MEDICARE, MEDICAID, SELFPAY | PROVIDERS: PCP Family Medicine; Visit Provider Internal Medicine Cardiovascular Disease | DX: I73.9 Peripheral vascular disease, unspecified (principal); Z71.6 Tobacco abuse counseling; I10 Essential (primary) hypertension; E78.5 Hyperlipidemia, unspecified; J44.9 Chronic obstructive pulmonary disease, unspecified; F17.210 Nicotine dependence, cigarettes, uncomplicated | CPT/HCPCS: 99213 ==

== ENCOUNTER → 2022-11-09 09:45 | Outpatient (BNVA) | payer MEDICARE, MEDICAID, SELFPAY | PROVIDERS: PCP Family Medicine; Visit Provider Urology | DX: N39.0 Urinary tract infection, site not specified (principal); N39.46 Mixed incontinence; N13.30 Unspecified hydronephrosis | CPT/HCPCS: 81003; 99213 ==

== ENCOUNTER → 2022-11-29 08:29 | Outpatient (BNVA) | payer MEDICARE, MEDICAID, SELFPAY | PROVIDERS: PCP Family Medicine; Visit Provider Dermatology | DX: C44.329 Squamous cell carcinoma of skin of other parts of face (principal) | CPT/HCPCS: 12052; 17311; 17312 ==

== ENCOUNTER → 2022-12-09 09:43 | Outpatient (BNVA) | payer MEDICARE, MEDICAID, SELFPAY | PROVIDERS: PCP Family Medicine; Visit Provider Dermatology | DX: Z48.02 Encounter for removal of sutures (principal) | CPT/HCPCS: 99212 ==

== ENCOUNTER 2023-01-11 10:25 | Outpatient (CLI) | payer MEDICARE, MEDICAID, SELFPAY ==
--- NOTE | 2023-01-11 10:34 | CT_ITS ---
WS: [id number] LDCT LUNG CANCER SCREENING HISTORY: NICOTINE DEPENDENCE, CIGARETTES TECHNIQUE: Axial imaging performed from the apices to 1 cm below the costophrenic angles. Coronal and sagittal reformats are submitted with axial MIP series. All CT scans at [facility] use at least one of these dose optimization techniques: automated exposure control; mA and/or kV adjustment per patient size (includes targeted exams where dose is matched to clinical indication); or iterativ e reconstruction. DLP: 49.61 mGy.cm DIvol: Mean CTDIvol: 0.90 (mGy) COMPARISON: 03/26/2022 Diagnostic quality: Satisfactory Lungs: No pulmonary mass, nodule, pneumonia. No endobronchial lesions. There is very mild pleural thi ckening along the LEFT fissure which is unchanged. Heart: Mild cardiomegaly. Heavy calcification in the [place] coronary arteries.. Other findings: Moderate atherosclerosis aorta. Mild enlargement of the pulmonary artery. No adenopat hy. No adrenal mass. Mild thoracic spondylosis. CT/CT lung screening [id number] IMPRESSION: LUNG-RADS: 1-Negative FOLLOW UP: 12 Month: Continue annual screening with LDCT OTHER FINDINGS (S MODIFIER): None.
== END 2023-01-11 10:26 | disposition home or self-care (01) ==
LOC: RAD 10:25
PROVIDERS: PCP Family Medicine; Visit Provider Physician Assistant
DX: Z12.2 Encounter for screening for malignant neoplasm of respiratory organs (principal); F17.210 Nicotine dependence, cigarettes, uncomplicated
CPT/HCPCS: 71271

== ENCOUNTER 2023-01-19 13:12 | Outpatient (CLI) | payer MEDICARE, MEDICAID, SELFPAY ==
--- NOTE | 2023-01-19 13:20 | XR_ITS ---
WS: [id number] SCREENING DEXA SCAN [employer] CLINICAL INFORMATION: POSTMENOPAUSAL COMPARISON: 2013 FINDINGS: The L1-L4 bone mineral density measures 1.470 g/cm2. This corresponds to a T score score of 2.4 and Z score of 3.8. Left femoral neck bone mineral density measures 0.984 g/cm2. This corresponds to a T score of -0.2 an d Z score of 1.3. Right femoral neck bone mineral density measures 1.021 g/cm2. This corresponds to a T score 0.1of and Z score of 1.6. Mean femoral neck bone mineral density measures 1.003 g/cm2. This corresponds to a T score of 0.0 and Z score of 1.4. XR/XR DEXA axial skeleton* [id number] IMPRESSION: Normal bone mineralization. Patient's FRAX calculated 10 year probability for major osteoporotic fracture i s 9.4 % and osteoporotic hip fracture is 2.1%.
== END 2023-01-19 13:13 | disposition home or self-care (01) ==
LOC: RAD 13:14
PROVIDERS: PCP Family Medicine; Visit Provider Physician Assistant
DX: Z13.820 Encounter for screening for osteoporosis (principal); Z78.0 Asymptomatic menopausal state
CPT/HCPCS: 77080

== ENCOUNTER 2023-01-20 11:12 | Outpatient (CLI) | payer MEDICARE, MEDICAID, SELFPAY ==
--- NOTE | 2023-01-20 11:21 | USR_ITS ---
PROCEDURE INFORMATION: Exam: US Duplex Bilateral Lower Extremity Arteries Exam date and time: 01/20/2023 11:44 AM Clinical indication: Pain; Leg, lower; Bilateral; Additional info: Pvd TECHNIQUE: Imaging protocol: Real-time ultrasound scan of the arteries of the bilateral lower extremities with 2-D salcedo scale, color Doppler flow and spectral waveform analysis. Images documented and saved. COMPARISON: CT angio abd aorta runof [id number] 03/26/2022 3:27 PM FINDINGS: Right external iliac artery: Right iliac artery shows atherosclerosis with mild luminal narrowing and mildly elevated peak systolic velocities, measuring 157.7 cm/s proximally, 171.0 cm/s at the mid segment, and 192.2 cm/s distally. Normal waveforms. Right common femoral artery: Atherosclerosis causes mild luminal narrowing and elevated peak systolic velocity, measuring 260.3 cm/s. Normal waveform. Right superficial femoral artery: Atherosclerosis causes mild luminal narrowing. Normal peak systolic velocity. Normal waveform. Right popliteal artery: Atherosclerosis causes luminal narrowing. Normal peak systolic velocity. Normal waveform. Right calf/foot arteries: Parvus tardus waveforms in the posterior tibial artery and dorsalis pedis artery. MAGDA measures 0.5. Left external iliac artery: Left iliac artery shows atherosclerosis with mild luminal narrowing and elevated peak systolic velocities, measuring 178.8 cm/s proximally, 180.5 cm/s at the mid segment, and 144.7 cm per segment distally. Normal waveforms. Left common femoral artery: Atherosclerosis causes mild luminal narrowing and elevated peak systolic velocity, measuring 180.8 cm/s. Normal waveform. Left superficial femoral artery: Atherosclerosis causes mild luminal narrowing. Normal peak systolic velocity. Normal waveform. Left popliteal artery: Atherosclerosis causes luminal narrowing. Normal peak systolic velocity. Normal waveform. Left calf/foot arteries: No occlusion or significant stenosis in the visualized arteries. Normal waveforms. Posterior tibial and dorsalis pedis arteries are patent. MAGDA measures 0.7. US/[place] [id number] IMPRESSION: Peripheral arterial disease most significantly affecting the right calf vessels with parvus tardus waveforms and MAGDA measuring 0.5. Left MAGDA measures 0.7.
== END 2023-01-20 11:13 | disposition home or self-care (01) ==
LOC: RAD 11:14
PROVIDERS: PCP Family Medicine; Visit Provider Physician Assistant
DX: I70.203 Unspecified atherosclerosis of native arteries of extremities, bilateral legs (principal)
CPT/HCPCS: 93925

== ENCOUNTER → 2023-02-02 11:05 | Outpatient (BNVA) | payer MEDICARE, MEDICAID, SELFPAY | PROVIDERS: PCP Family Medicine; Visit Provider Internal Medicine Cardiovascular Disease | DX: I73.9 Peripheral vascular disease, unspecified (principal); F17.210 Nicotine dependence, cigarettes, uncomplicated; I10 Essential (primary) hypertension; J44.9 Chronic obstructive pulmonary disease, unspecified; I77.9 Disorder of arteries and arterioles, unspecified; G47.30 Sleep apnea, unspecified; E78.5 Hyperlipidemia, unspecified | CPT/HCPCS: 99214 ==

== ENCOUNTER → 2023-02-25 09:31 | Outpatient (BNVA) | payer MEDICARE, MEDICAID, SELFPAY | PROVIDERS: PCP Family Medicine; Visit Provider Dermatology | DX: L72.0 Epidermal cyst (principal); D69.2 Other nonthrombocytopenic purpura; L73.8 Other specified follicular disorders; I78.8 Other diseases of capillaries; L85.3 Xerosis cutis; Z08 Encounter for follow-up examination after completed treatment for malignant neoplasm; Z85.828 Personal history of other malignant neoplasm of skin | CPT/HCPCS: 99213 ==

== ENCOUNTER → 2023-03-08 10:58 | Outpatient (BNVA) | payer MEDICARE, MEDICAID, SELFPAY | PROVIDERS: PCP Family Medicine; Visit Provider Internal Medicine Cardiovascular Disease | DX: I77.9 Disorder of arteries and arterioles, unspecified (principal); F17.210 Nicotine dependence, cigarettes, uncomplicated | CPT/HCPCS: 99214 ==

== ENCOUNTER 2023-05-26 10:20 | Outpatient (CLI) | payer MEDICARE, MEDICAID, SELFPAY ==
--- NOTE | 2023-05-26 11:02 | MM_ITS ---
WS: [id number] BILATERAL SCREENING DIGITAL TOMOSYNTHESIS MAMMOGRAM WITH CAD HISTORY: SCREENING COMPARISON: 05/06/2022, 10/03/2018 Bilateral CC and MLO views with tomosynthesis and synthetic mammography submitted. Computer aided det ection analyzed. Breast composition: The breasts are heterogeneously dense, which may obscure small masses. No suspici ous masses, microcalcifications or architectural distortion. Long-term stability mass measuring 10 mm in the anterior RIGHT breast. There are additional very benign appearing calcifications scattered th roughout the RIGHT breast. IMPRESSION: MM/[place] [id number] BI-RADS: 2-Benign FOLLOW UP: 1 Year Follow-up
== END 2023-05-26 10:21 | disposition home or self-care (01) ==
LOC: RAD 10:20
PROVIDERS: PCP Family Medicine; Visit Provider Family Medicine
DX: Z12.31 Encounter for screening mammogram for malignant neoplasm of breast (principal)
CPT/HCPCS: 77063; 77067

== ENCOUNTER → 2023-06-28 10:29 | Outpatient (BNVA) | payer MEDICARE, MEDICAID, SELFPAY | PROVIDERS: PCP Family Medicine; Visit Provider Internal Medicine Cardiovascular Disease | DX: I77.9 Disorder of arteries and arterioles, unspecified (principal); I25.10 Atherosclerotic heart disease of native coronary artery without angina pectoris; I10 Essential (primary) hypertension; F17.210 Nicotine dependence, cigarettes, uncomplicated | CPT/HCPCS: 99214 ==

== ENCOUNTER 2023-07-16 02:42 | Emergency (ER) | payer MEDICARE, MEDICAID, SELFPAY ==
[2023-07-16 02:54] VITALS: BP 160/68; PULSE 86; RESP 20; TEMP 37; O2SAT 95; BMI 29.2
--- NOTE | 2023-07-16 03:49 | XRR_ITS ---
PROCEDURE INFORMATION: Exam: XR Right Knee Exam date and time: 07/16/2023 3:58 AM Age: 73 years old Clinical indication: Injury or trauma; Blunt trauma; Right; Patient HX: Fall at home this a. M. Abrasion to anterior aspect of knee. TECHNIQUE: Imaging protocol: Radiologic exam of the right knee. Views: 3 views. COMPARISON: No relevant prior studies available. FINDINGS: Bones/joints: No significant arthritic changes. No acute osseous or joint abnormality. Soft tissues: Normal. Vasculature: Arterial calcifications. XR/XR knee RT 3V* [id number] IMPRESSION: No acute findings.
--- NOTE | 2023-07-16 03:49 | XRR_ITS ---
PROCEDURE INFORMATION: Exam: XR Right Hand Exam date and time: 07/16/2023 3:58 AM Age: 73 years old Clinical indication: Injury or trauma; Right; Little finger; Patient HX: Fall at home this a. M. Laceration to base of fifth digit. TECHNIQUE: Imaging protocol: Radiologic exam of the right hand. Views: 3 or more views. COMPARISON: No relevant prior studies available. 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 Soft tissue swelling adjacent. No underlying osseous or joint abnormality. No radiopaque foreign material. Mild degenerative changes of the interphalangeal joints. Soft tissues: Normal. XR/XR hand RT min 3V* [id number] IMPRESSION: No acute osseous injury.
[2023-07-16] MEDS: tetanus-diphtheria tox (adult) 0.5 mL SDV IM (04:15)
[2023-07-16] MEDS: TRAMadol 50 mg Tablet PO (04:15)
--- NOTE | 2023-07-16 04:51 | ED_ITS ---
HPI - Fall General: Chief Complaint: Fall Stated Complaint: fell injury on right hand and knee Time Seen by Provider: 07/16/23 03:51 History of Present Illness: 73-year-old female presents em ergency room after a fall at home. Patient reveals that she tripped and fell forward. She now presents emergency room with right knee and right hand pain. She also revealed that she sustained laceration to her right hand and described the pain around the hand as throbbing sensation with severity of 7 out of 10 mostly at the base of the fifth digit. Has any loss of consciousness, nausea, vomiting, chest pain, pelvic pain or hip pain. Associated symptoms-after fall: Denies abdominal pain, confusion, difficulty walking, headache(s) or neck pain Review of Systems General: Reports: 10 or more systems reviewed and unremarkable except in HPI and below Const: Denies: fever(s), chills, body aches or change in appetite Resp: Denies: dyspnea or productive cough GI: Denies: abdominal pain, nausea or vomiting Musc: Reports: extremity pain and joint pain (Right knee pain); Denies: neck pain, back pain, joint stiffness, muscle weakness or deformity Skin/Breast: Reports: sores (Right hand laceration) Neuro: Denies: headache(s), numbness in extremities, weakness in extremities, sensory changes, lack of coordination, difficulty walking, dizziness or confusion PFSH ED PFSH: Medical History (Updated 07/16/23 @ 04:59 by Jagdish Sorto MD) CAD (coronary artery disease) Mixed stress and urge urinary incontinence Recurrent UTI Insomnia Hx of colonic polyps Hx of gastroesophageal reflux (GERD) Hx of hyperparathyroidism Hx of irritable bowel syndrome Hx of anxiety disorder Hx of hyperlipidemia Peripheral arterial occlusive disease History of hypertension Hx of sleep apnea Encounter for screening for lung cancer History of COPD Surgical History Hx of tubal ligation Hx of carpal tunnel repair Hx of parathyroidectomy History of bilateral cataract extraction Hx of esophagogastroduodenoscopy Hx of colonoscopy Family History Brother Kidney stones Mother , in late 60s Cancer Breast Diabetes Brain tumor Father , in late 60s Encysted lung fluid Social History Smoking and tobacco/nicotine status: current every day tobacco/nicotine user cigarettes Packs smoked per day: 0.5 Years cigarettes smoked: 40 Quit status (tobacco/nicotine): considering quitting Second hand smoke exposure: No Alcohol intake: current Alcohol intake frequency: holidays/special occasions only Substance/Drug Use: never Lives independently: Yes Household members: none Marital status: Current occupational status: retired Pets and animals: No Do you think of yourself as: Straight/Heterosexual Current gender identity: Female Physical Exam Const: COMMON NORMALS: no acute distress, average body habitus, patient oriented x3, no limitations, healthy appearing, alert and well nourished HENMT: COMMON NORMALS: normocephalic, atraumatic, hearing grossly normal bilaterally, external ears normal, EAC's normal, TM's normal bilaterally, Normal external nose present, Normal nasal mucous membranes and turbinates present, moist oral mucous membranes, oropharynx normal, dentition normal and gingiva normal HEAD & SCALP: normocephalic and atraumatic NOSE: Normal external nose present and Normal nasal mucous membranes and turbinates present EXTERNAL EAR: Yes external ears normal EXTERNAL AUDITORY CANAL: EAC's normal TYMPANIC MEMBRANE: TM's normal bilaterally Eye: COMMON NORMALS: Equal, round and reactive pupils present, EOMs intact bilaterally, conjunctivae normal, no scleral icterus, no papilledema, normal visual bray by confrontation and fundi normal bilaterally CONJUNCTIVA: Yes conjunctivae normal PUPIL: Yes Equal, round and reactive pupils present DIRECT OPHTHALMOSCOPY: Yes no papilledema and Yes fundi normal bilaterally Neck/C-Spine: COMMON NORMALS: full ROM, no lymphadenopathy, supple, no meningeal signs, no JVD, Thyroid normal and No carotid bruits THYROID: Thyroid normal Chest: COMMONS NORMALS: normal inspection of the chest, normal palpation of entire chest wall, normal inspection of the breasts and normal palpation of the breasts Breast/axilla inspection: Yes normal inspection of the breasts BREAST/AXILLA PALPATION: Yes normal palpation of the breasts Resp: COMMON NORMALS: normal respiratory effort, No retractions, No use of accessory muscles, clear to auscultation bilaterally and percussion normal AUSCULTATION: clear to auscultation bilaterally PERCUSSION: percussion normal Cardio: COMMON NORMALS: no JVD GI: COMMON NORMALS: Normal to inspection, nondistended, normoactive bowel sounds present, Soft to palpation, non-tender, No hepatosplenomegaly present, no masses and no bruits PALPATION: Yes Soft to palpation and Yes No hepatosplenomegaly present Back/Pelvis: PELVIS: Yes buttocks normal, Yes no pain with anterior-posterior compression, Yes no pain with lateral compression and Yes tenderness over symphysis pubis Extremity: OTHER: Right hand with 2 cm laceration at the base of fifth digit. Some mild swelling. Left knee with anterior abrasion with some mild swelling. There is no range of motion of the knee. There is no manage motion at the hip as well. No obvious deformity. Neuro: COMMON NORMALS: patient oriented x3 SENSORIUM/ORIENTATION: Yes alert MENINGEAL SIGNS: Yes no meningeal signs Skin: OTHER: Right laceration measures about 2 cm at the base of the fifth digit. Abrasion to the anterior aspect of the right knee. Procedures Laceration Laceration 1: Site: hand Side (If applicable): right Size (cm): 2 Description: linear Depth: simple, single layer Local Anesthetic: lidocaine 2% Amount of anesthesia used (mL): 5 Skin layer closed with: nylon Size (cm): 4-0 Number of sutures: 5 Technique: simple, interrupted Course Vital Signs: Vital signs: Vital Signs Temperature 98.6 F 07/16/23 02:54 Pulse Rate 86 07/16/23 02:54 Respiratory Rate 20 H 07/16/23 02:54 Blood Pressure 160/68 07/16/23 02:54 Pulse Oximetry 95 07/16/23 02:54 MDM - Fall Medical Decision Making Patient was made come to emergency room and had x-ray of hand and knee done. Patient was given tetanus immunization. Patient was given oral pain medication. Patient was monitored here for about an hour. Sutures applied to the laceration. Differential Diagnosis Likely syncope, dislocation of shoulder region, fracture of wrist, compression fracture, concussion with loss of consciousness and concussion without loss of consciousness All radiology interpretation(s) finalized by discharge Discharge Plan Discharge Patient Disposition: Home Clinical Impression: Fall, Laceration, Contusion of knee Condition: Stable Prescriptions: No Action cholecalciferol (vitamin D3) 25 mcg (1,000 unit) capsule 25 mcg PO QAM cilostazol 100 mg tablet 100 mg PO BID Qty: 180 3RF Rx Instructions: dose change hydrocodone-acetaminophen 7.5-325 mg tablet 1 tab PO BID PRN (Reason: Pain) lorazepam 0.5 mg tablet 0.5 mg PO BEDTIME PRN (Reason: sleep) simvastatin 40 mg tablet 40 mg PO BEDTIME benazepril 40 mg tablet 40 mg PO QAM aspirin [Adult Aspirin Regimen] 81 mg tablet,delayed release (DR/EC) 81 mg PO BEDTIME albuterol sulfate [Ventolin HFA] 90 mcg/actuation HFA aerosol inhaler 2 puff INHALATION Q4H PRN (Reason: shortness of breath or wheezing) nitroglycerin [Nitrostat] 0.4 mg tablet, sublingual 0.4 mg SUBLINGUAL Q5M PRN (Reason: chest pain) Qty: 25 3RF Rx Instructions: do not exceed 3 doses per episode isosorbide mononitrate 30 mg tablet extended release 24 hr 30 mg PO DAILY Qty: 90 3RF ipratropium-albuterol 0.5 mg-3 mg(2.5 mg base)/3 mL solution for nebulization 3 ml inhalation Q6H PRN (Reason: shortness of breath or wheezing) Qty: 360 3RF methenamine hippurate 1 gram tablet 1 g PO BID Qty: 60 12RF Rx Instructions: 1 pill twice a day with 1 g vitamin C each dose cefuroxime axetil 500 mg tablet See Rx Instructions .ROUTE .COMPLEX Qty: 60 6RF Dose Instruction: TAKE 1 TABLET BY MOUTH TWICE DAILY Rx Instructions: TAKE 1 TABLET BY MOUTH TWICE DAILY Otezla 30 mg tablet 30 mg PO BID Qty: 60 6RF Breztri Aerosphere 160-9-4.8 mcg/actuation HFA aerosol inhaler 2 inh inhalation BID Qty: 10.7 3RF metoprolol tartrate 25 mg tablet 25 mg PO BID Qty: 180 3RF paroxetine HCl 40 mg tablet 40 mg PO BEDTIME cyclobenzaprine 5 mg tablet 5 mg PO DAILY PRN (Reason: Muscle Spasm) Vitamin B-12 1 tab PO QAM Discharge Orders: Discharge ED (Routine); Ordered 07/16/23 Ordered By: Jagdish Sorto Referrals: Cezar Lorenz MD [Primary Care Provider] - Discharge Diet: Advance as tolerated Discharge Activity: Resume usual activity Patient Instructions: Opioid Safety, Pain Management Activity Restrictions/Additional Instructions: Keep wound dry and clean. Wound recheck in 2 to 3 days. Suture removal in 7 to 8 days. Coding Level of Care Code ED [employer] for Jo Ann Reeves
== END 2023-07-16 05:56 | disposition home or self-care (01) ==
PROVIDERS: Emergency Provider Family Medicine; PCP Family Medicine
DX: S80.01XA Contusion of right knee, initial encounter (principal); S61.411A Laceration without foreign body of right hand, initial encounter; Z79.82 Long term (current) use of aspirin; F17.210 Nicotine dependence, cigarettes, uncomplicated; I25.10 Atherosclerotic heart disease of native coronary artery without angina pectoris; E78.5 Hyperlipidemia, unspecified; I10 Essential (primary) hypertension; J44.9 Chronic obstructive pulmonary disease, unspecified; W01.0XXA Fall on same level from slipping, tripping and stumbling without subsequent striking against object, initial encounter; Z23 Encounter for immunization
CPT/HCPCS: 12001; 73130; 73562; 90471; 90714; 99284

== ENCOUNTER → 2023-09-27 10:41 | Outpatient (BNVA) | payer MEDICARE, MEDICAID, SELFPAY | PROVIDERS: PCP Family Medicine; Visit Provider Internal Medicine Cardiovascular Disease | DX: I73.9 Peripheral vascular disease, unspecified (principal); Z71.6 Tobacco abuse counseling; I77.9 Disorder of arteries and arterioles, unspecified; I10 Essential (primary) hypertension; I25.10 Atherosclerotic heart disease of native coronary artery without angina pectoris; E78.5 Hyperlipidemia, unspecified; F17.210 Nicotine dependence, cigarettes, uncomplicated | CPT/HCPCS: 99214 ==

== ENCOUNTER → 2023-11-17 09:48 | Outpatient (BNVA) | payer MEDICARE, MEDICAID, SELFPAY | PROVIDERS: PCP Family Medicine; Visit Provider Internal Medicine Pulmonary Disease | DX: R06.02 Shortness of breath (principal); Z87.09 Personal history of other diseases of the respiratory system; Z12.2 Encounter for screening for malignant neoplasm of respiratory organs; Z71.6 Tobacco abuse counseling; Z86.69 Personal history of other diseases of the nervous system and sense organs; F17.210 Nicotine dependence, cigarettes, uncomplicated | CPT/HCPCS: 99214 ==

== ENCOUNTER → 2023-12-15 11:09 | Outpatient (BNVA) | payer MEDICARE, MEDICAID, SELFPAY | PROVIDERS: PCP Family Medicine; Visit Provider Internal Medicine Cardiovascular Disease | DX: I10 Essential (primary) hypertension (principal); I25.10 Atherosclerotic heart disease of native coronary artery without angina pectoris; I77.9 Disorder of arteries and arterioles, unspecified; R06.00 Dyspnea, unspecified; I73.9 Peripheral vascular disease, unspecified; R07.89 Other chest pain; E78.5 Hyperlipidemia, unspecified; G47.30 Sleep apnea, unspecified; F17.210 Nicotine dependence, cigarettes, uncomplicated | CPT/HCPCS: 99214 ==

== ENCOUNTER 2024-01-03 08:10 | Outpatient (CLI) | payer MEDICARE, MEDICAID, SELFPAY ==
[2024-01-03 08:17] VITALS: BMI 27.3
--- NOTE | 2024-01-03 08:21 | ECG_ITS ---
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 The perfusion scan will be documented separately. DATA: Baseline heart rate was 73 beats per minute. Baseline blood pressure was 157/61 millimeters of mercury. Maximum heart rate achieved was 84. which was 57% of the predicted target heart rate. Maximum blood pressure was millimeters of mercury. The reason for ending the test was completion of the protocol. The patient did not experience any symptoms. ELECTROCARDIOGRAM: BASELINE: Sinus rhythm. Normal axis. Otherwise, no ST-T changes suggestive of ischemia noted. No arrhythmia noted. EXERCISE: After Lexiscan injection, no ST-T changes suggestive of ischemic noted. No arrhythmia noted. CONCLUSION: Please note due to baseline abnormality of the EKG specificity and sensitivity of the EKG portion of LexiScan MIBI stress test will be low 1. EKG not suggestive of ischemia 2. Lexiscan injection unremarkable. 3. Perfusion scan will be documented separately. Electronically Signed On 01-03-2024 21:42:01 CDT by SUSAN DIAMOND [email or web address]
--- NOTE | 2024-01-03 08:21 | NMCV_ITS ---
NM rowdy perf SPECT r/s* [id number] Eula Walter Age: 73 Gender: F : 1950 Exam Date: 01/03/2024 09:14 Ordering Phys: Nicholas Pearson MD ([email or web address]) Technologist: LIZETTE Carrillo Exam Location: [facility] Indications: CP, SOB STRESS TEST [facility] IMAGE PROTOCOL Rest/Stress 1 Lexiscan Day Radiopharmaceutical Dose (mCi) Administration Site Administered by Rest: Tc-99m 10.8 IV LIZETTE Carrillo Sestamibi Stress:Tc-99m 32.7 IV LIZETTE Carrillo Sestamibi Rest: 03-Jan-2024 60 Discovery 630 Stress: 03-Jan-2024 30 Discovery 630 0.4mg Lexiscan. Images obtained in supine and prone position. SPECT RESULTS Technical Quality: Good Raw Data Analysis: Normal Image Corrections: Patient motion artifact - motion correction applied Summed Stress Score: 3 Summed Rest Score: 0 Summed Difference Score: 3 PERFUSION FINDINGS Medium sized area of moderate ischemia noted in basal to distal inferior wall suggestive of obstructive coronary artery disease in RCA territory. FUNCTIONAL RESULTS (calculated via Gated SPECT) Stress Image LV EF (%): 80 Stress EDV (mL):69 TID: 1.09 Stress ESV (mL):14 FUNCTIONAL FINDINGS: There is normal left ventricular systolic function. IMPRESSIONS Medium sized area of moderate ischemia noted in the basal to distal inferior wall suggestive of obstructive coronary artery disease in possible RCA or dominant circumflex territory. Left ventricular ejection fraction appeared to be normal. Zen Fox MD (Electronically Signed) Final Date: 03 January 2024 17:26 S
[2024-01-03] MEDS: regadenoson 0.4 Mg/5 ml Syringe 0.400000000000000022 MG IVP (09:47)
[2024-01-03 10:06] VITALS: BP 161/74; PULSE 74
== END 2024-01-03 08:11 | disposition home or self-care (01) ==
LOC: CDL 08:11
PROVIDERS: PCP Family Medicine; Visit Provider Internal Medicine Cardiovascular Disease
DX: I25.10 Atherosclerotic heart disease of native coronary artery without angina pectoris (principal); R07.89 Other chest pain; R06.02 Shortness of breath; R94.39 Abnormal result of other cardiovascular function study
CPT/HCPCS: 36415; 78452; 93017; 96374; A9500; J2785

== ENCOUNTER 2024-01-12 09:24 | Outpatient (CLI) | payer MEDICARE, MEDICAID, SELFPAY ==
--- NOTE | 2024-01-12 10:00 | CT_ITS ---
WS: [id number] LDCT LUNG CANCER SCREENING TECHNIQUE: Noncontrast CT of the chest with coronal and sagittal reformatted images. CLINICAL INFORMATION: Cancer Screen COMPARISON: 01/11/2023 DLP: 52.40 mGy.cm DIvol: Mean CTDIvol: 1.10 (mGy) All CT scans at [facility] use at least one of these dose optimization techniques: automat ed exposure control; mA and/or kV adjustment per patient size (includes targeted exams where dose is matched to clinical indication); or iterative reconstruction. FINDINGS: Some images in the upper mediastinum degraded by respiratory motion Lungs are well aerated. Chronic emphysematous changes. Slight bibasal atelectasis. No new suspicious pulmonary parenchymal normalities. 3 mm noncalcified nodule RIGHT upper lobe anteriorly Dense aortic calcification. No mediastinal or hilar lymphadenopathy. Coronary calcification. Cardiome nick. Normal GE junction. No axillary lymphadenopathy. Moderate spondylitic changes thoracic spine with tho racic kyphosis. Mild thoracic curve. CT/CT lung screening [id number] IMPRESSION: LUNG-RADS: 2-Benign Appearance or Behavior FOLLOW UP: 12 Month: Continue annual screening with LDCT
== END 2024-01-12 09:25 | disposition home or self-care (01) ==
LOC: RAD 09:24
PROVIDERS: PCP Family Medicine; Visit Provider Internal Medicine Pulmonary Disease
DX: Z12.2 Encounter for screening for malignant neoplasm of respiratory organs (principal); F17.210 Nicotine dependence, cigarettes, uncomplicated; J43.9 Emphysema, unspecified; R91.1 Solitary pulmonary nodule; I70.0 Atherosclerosis of aorta; M47.814 Spondylosis without myelopathy or radiculopathy, thoracic region; M40.204 Unspecified kyphosis, thoracic region
CPT/HCPCS: 71271

== ENCOUNTER 2024-02-09 06:00 | Outpatient (CLI) | payer MEDICARE, MEDICAID, SELFPAY ==
[2024-02-09] VITALS (22 sets, daily range): BP systolic 130–180; BP diastolic 47–99; PULSE 60–79; RESP 13–98; TEMP 36.4–37.2; O2SAT 92–98; BMI 29.0
[2024-02-09 06:39] LABS: Basophils # 0.1 10^3/uL (0.0-0.1); Basophils % 1.1 %; Lymphocytes # 2.5 10^3/uL (0.8-4.8); Lymphocytes % 28.4 %; Mean Corpuscular HGB Conc 34.5 g/dL (30-55); Mean Corpuscular Hemoglobin 29.4 pg (27-33); Mean Corpuscular Volume 85.2 fl (85-98); Mean Platelet Volume 8.7 fL (7.4-10.4); Monocytes # 0.6 10^3/uL (0.2-0.9); Monocytes % 6.9 %; Neutrophils # 5.65 10^3/uL (1.8-7.7); Neutrophils % 63.3 %; Nucleated Red Blood Cells % 0 %; Platelet Count 333 10^3/cmm (157-399); Red Blood Count 4.46 10^6/uL (3.85-5.65); Red Cell Distribution Width 13.2 % (12.1-15.1); White Blood Count 8.94 10^3/uL (3.29-11.43)
[2024-02-09] MEDS: aspirin 325 mg Tablet PO (06:39)
[2024-02-09] MEDS: diphenhydrAMINE 50 mg Capsule PO (06:39)
--- NOTE | 2024-02-09 06:48 | P.HP_ITS ---
Providers/Chief Complaint 2 Admitting Physician: This patient is 73 years old has a history of nonobstructive peripheral arterial disease. She is a smoker. She has coronary disease with prior stents. Last sestamibi examination prior to very recently was in 2021 showing small area of ischemia in the right coronary artery. She also has hypertension, dyslipidemia, COPD and sleep apnea. I saw her on the day of November when she came in complaining of shortness of breath and tightness in her chest. She had recently been diagnosed with diabetes. At that time I ordered a Lexiscan sestamibi. This was done on the of last month which revealed a medium sized area of moderate ischemia in the basal to distal inferior wall suggesting disease of the right or dominant circumflex. Left ventricular ejection fraction was normal. Because the patient was still having intermittent episodes of chest pain it is recommended she undergo coronary angiography. That is why she is here today. Primary Care Provider: Cezar Lorenz MD Chief Complaint: R94.39 History of Present Illness Eula Walter is a 73 year old female Medications/Allergies Home Medications Medication Instructions Recorded Confirmed Last Taken Type albuterol sulfate 90 mcg/actuation 2 puff inhalation Q4H PRN 03/19/20 02/08/24 02/08/24 19:30 History aerosol inhaler (Ventolin HFA) shortness of breath or wheezing aspirin 81 mg tablet,delayed 81 mg PO BEDTIME 03/19/20 02/08/24 02/08/24 19:30 History release (Adult Aspirin Regimen) benazepril 40 mg tablet 40 mg PO QAM 03/19/20 02/09/24 02/09/24 05:25 History lorazepam 0.5 mg tablet 0.5 mg PO BEDTIME PRN sleep 03/19/20 02/09/24 02/08/24 20:00 History simvastatin 40 mg tablet 40 mg PO BEDTIME 03/19/20 02/08/24 02/08/24 19:30 History cholecalciferol (vitamin D3) 25 25 mcg PO QAM 12/31/20 02/09/24 02/08/24 09:00 History mcg (1,000 unit) capsule nitroglycerin 0.4 mg sublingual 0.4 mg sublingual Q5M PRN chest 09/03/21 02/08/24 Unknown Rx tablet (Nitrostat) pain #25 tabs hydrocodone 7.5 mg-acetaminophen 1 tab PO BID PRN Pain 12/10/21 02/09/24 02/08/24 09:00 History 325 mg tablet Vitamin B-12 1 tab PO QAM 12/29/21 02/08/24 05/24/22 21:00 History cyclobenzaprine 5 mg tablet 5 mg PO DAILY PRN Muscle Spasm 12/29/21 02/08/24 02/08/24 19:30 History paroxetine HCl 40 mg tablet 40 mg PO BEDTIME 12/29/21 02/08/24 02/08/24 19:30 History ipratropium 0.5 mg-albuterol 3 mg 3 ml inhalation Q6H PRN shortness 09/07/22 02/09/24 02/08/24 10:00 Rx (2.5 mg base)/3 mL nebulization of breath or wheezing #360 mL soln apremilast 30 mg tablet (Otezla) 30 mg PO BID #60 tabs 02/11/23 02/08/24 02/08/24 19:30 Rx metoprolol tartrate 25 mg tablet 25 mg PO BID #180 tabs 06/07/23 02/09/24 02/08/24 09:00 Rx budesonide 160 mcg-glycopyr 9 2 inh inhalation BID #10.7 grams 07/26/23 02/08/24 02/08/24 19:30 Rx mcg-formot 4.8 mcg/actuation HFA inhaler (Breztri Aerosphere) isosorbide mononitrate 30 mg 30 mg PO DAILY #90 tabs 09/12/23 02/09/24 02/08/24 09:00 Rx tablet,extended release 24 hr Allergies Allergy/AdvReac Type Severity Reaction Status Date / Time No Known Allergies Allergy Verified 02/08/24 06:22 PFSH Acute 2 PFSH: Medical History (Updated 12/15/23 @ 13:39 by Nicholas Pearson MD) Chest discomfort CAD (coronary artery disease) Mixed stress and urge urinary incontinence Recurrent UTI Insomnia Hx of colonic polyps Hx of gastroesophageal reflux (GERD) Hx of hyperparathyroidism Hx of irritable bowel syndrome Hx of anxiety disorder Hx of hyperlipidemia Peripheral arterial occlusive disease History of hypertension Hx of sleep apnea Encounter for screening for lung cancer History of COPD Surgical History Hx of tubal ligation Hx of carpal tunnel repair Hx of parathyroidectomy History of bilateral cataract extraction Hx of esophagogastroduodenoscopy Hx of colonoscopy Family History Brother Kidney stones Mother , in late 60s Cancer Breast Diabetes Brain tumor Father , in late 60s Encysted lung fluid Social History Smoking and tobacco/nicotine status: current every day tobacco/nicotine user cigarettes Packs smoked per day: 0.5 Years cigarettes smoked: 40 Quit status (tobacco/nicotine): considering quitting Second hand smoke exposure: No Alcohol intake: current Alcohol intake frequency: holidays/special occasions only Substance/Drug Use: never Lives independently: Yes Household members: none Marital status: Current occupational status: retired Pets and animals: No Do you think of yourself as: Straight/Heterosexual Current gender identity: Female Vitals/I&O/Wt Last Vital Signs Temp 97.6 F 02/09/24 06:40 Pulse 64 02/09/24 06:40 Resp 20 H 02/09/24 06:40 BP 180/94 02/09/24 06:40 Pulse Ox 98 02/09/24 06:40 O2 Del Method Room Air 02/09/24 06:40 Weight last 48 hrs Weight 169 lb Physical Exam 2 Narrative: GENERAL: In general she looks and feels well HEENT: Exam within normal limits. NECK: Supple without jugular vein distention. The carotid upstroke is normal without bruits. BACK: Exam normal. LUNGS: Clear. HEART: Regular rate and rhythm. ABDOMEN: Benign without organomegaly or tenderness. EXTREMITIES: No edema. NEUROLOGIC: Exam normal. SKIN: Unremarkable. Data 02/09/24 06:25 02/09/24 06:25 A&P Assessment and plan (1) History of hypertension: (2) Peripheral arterial occlusive disease: (3) Hx of hyperlipidemia: (4) Exertional dyspnea: (5) Hypertension: (6) CAD (coronary artery disease): Qualifiers: Coronary Disease-Associated Artery/Lesion type: [place] artery [place] vs. transplanted heart: [place] heart Associated angina: without angina Qualified Code(s): I25.10 - Atherosclerotic heart disease of [place] coronary artery without angina pectoris (7) Chest discomfort: Plan Coronary angiography today. Further recommendations based on the results. Attestations 2 Medical Necessity Statement*: Outpatient angiography to be done today. and Moderate Time for a total of 35 minutes, includes reviewing past or interval history, examining/interviewing patient, placing orders, counseling patient/family/other support, updating patient/family/other support, discussing plan of care with staff, communicating with other healthcare providers, documenting encounter and coordinating care Diagnoses History of hypertension Z86.79 Peripheral arterial occlusive disease I77.9 Hx of hyperlipidemia Z86.39 Exertional dyspnea R06.00 Hypertension I10 Coronary artery disease involving [place] coronary artery of [place] heart without angina pectoris I25.10 Coronary Disease-Associated Artery/Lesion type: [place] artery [place] vs. transplanted heart: [place] heart Associated angina: without angina Chest discomfort R07.89
[2024-02-09 06:51] LABS: Anion Gap 16.3 (5-19); Blood Urea Nitrogen 13 mg/dL (8-23); Carbon Dioxide 26 mmol/L (22-29); Chloride 92 mmol/L (98-107); Creatinine Clr Calc Pharmacy 60.8928; Glucose 101 mg/dL (65-115); Osmolality Calculated 270 mOsm/kg (285-295); Potassium 4.3 mmol/L (3.5-5.1); Sodium 130 mmol/L (136-145)
--- NOTE | 2024-02-09 07:00 | XACV_ITS ---
Exam Room: 2 Ht: 163 cm Wt: 77 kg BSA: 1.88 m2 Gender: Female : 1950 Any Known Allergies: No known allergies Exam Priority: Routine Procedure(s): Procedure Description: Diagnostic procedure Procedure Description: PCI procedure Procedure Description: Drug Eluting Coronary Stent Procedure Description: PTCA Procedure Description: Coronary Angiography Lili LATIF; Diagnostic Cath Status: Elective Diagnostic Findings * Lifelong very heavy smoker with multilevel vascular disease presented to the office with typical chest pain. Stress testing abnormal in the distribution of the right coronary artery. Brought in for elective angiography. * Initially the procedure was performed from the right radial artery. Difficulty passing the catheter through the innominate artery was encountered. 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 A right coronary catheter was used to direct the tip toward the area of stenosis of the innominate and a wire was successfully placed through the artery and down to the proximal aorta. This made manipulation of the catheters difficult. * All vessels are heavily calcified. The proximal aorta and aortic arch are so heavily calcified 1 can see the outline of the vessel with simple x-ray. Placement of the tip of the right coronary catheter was difficult due to a large mass of calcium at the ostium. The vessel itself is heavily calcified and distally gives off a posterior descending artery and several small posterior left ventricular branches. There is a 95+ percent stenosis in the heavily calcified distal vessel just beyond the acute margin. The distal aspects of the vessel are severely diffusely diseased and there is actually collateral flow from the left to the distal vessel. * The left system is also heavily calcified. The left main coronary artery is normal and bifurcates into the LAD and circumflex. The LAD is calcified heavily especially proximally and down to the mid vessel. There are no significant stenoses. There is a large diagonal branch in the midportion which is also patent. The distal vessel tapers down to a small artery and has moderate to severe diffuse disease. It does provide some collateral flow to the distal right. The circumflex is a relatively small artery, is tortuous and contains to moderate size marginal branches. There is moderate diffuse disease of the proximal and mid marginals. The circumflex also provides collateral flow to the distal right coronary artery.. PCI Status: Elective PCI LVEF Assessed: No PCI Indication: New Onset Angina <= 2 months Interventional Findings * Initially the intervention was attempted via the right radial artery. The guide support was exceedingly poor given the innominate stenosis and heavy calcification present in the aorta and at the ostium of the right coronary artery. With some difficulty I was able to place the guide coaxially in the artery. I was able to put a wire down the distal right coronary artery. However, upon attempting to place a small noncompliant balloon I had no guide support. Each attempt to move a balloon down the artery forced the guide back into the aorta. There was simply no way to keep enough guide support. I tried to place a guide liner into the artery but even this pushed the guide back into the aorta. I was therefore forced to switch to the groin to get more support. * Sheath was then placed in the right common femoral artery. Using the same right coronary guide I was able to get slightly more support by deep throating the guide into the ostial right coronary artery. I had to switch wires in order to pass the wire beyond the distal right coronary artery stenosis. Initial attempts at simply placing a balloon were unsuccessful because of the calcium in the artery. I was then able to manipulate a guide liner down to the acute margin. This allowed me to slide a balloon onto the lesion. I started with a 2.5 mm noncompliant balloon and upsized this to a 3 mm noncompliant balloon. I then was able to place a 2.75 mm stent at the original lesion. This caused a significant lesion more proximally due to the heavy calcification and plaque shifting. I used the stent balloon to dilate this area. It still was significantly narrowed and so I placed a 2.75 mm x 18 mm stent in this area. The final result was quite good with good BC-3 flow. The patient became extremely agitated toward the end of the procedure. Decision for PCI with Surgical Consult: No PCI for Multi-vessel Disease: No Conclusions 1. 95+ percent stenosis of the distal right coronary artery treated with angioplasty and stent. Recommendations * Medical treatment. Stop smoking. Interventional RX Recommendation: PCI w/o planned CABG Diagnostic RX Recommendation: PCI w/o planned CABG Anticoagulation: Heparin Pressures Phase:Rest AO : 134 / 58 ( 88 ) @ 8:15:00 AM 121 / 69 ( 93 ) @ 8:21:00 AM 142 / 50 ( 88 ) @ 8:26:00 AM 146 / 54 ( 90 ) @ 8:27:00 AM 130 / 61 ( 92 ) @ 8:33:00 AM 109 / 62 ( 84 ) @ 8:34:00 AM 140 / 54 ( 88 ) @ 8:52:00 AM 131 / 56 ( 87 ) @ 9:03:00 AM 133 / 56 ( 87 ) @ 9:21:00 AM LV : 154 / -4 / 27 @ 8:26:00 AM 153 / -5 / 25 @ 8:26:00 AM Valves Phase:DefaultPhase AV : 11.0 @ 8:34:38 AM AV Mean Gradient: 9.0 @ 8:34:38 AM Clinical Evaluation EBL: 5mL-10mL Procedural Details Pre-Procedure Time Out. Identified patient by full name and date of as verbalized by the patient/guarantor. Does the consent match the physician's order: Yes. Accurate & Complete Informed Consent: Yes. Inpatient/Outpatient History & Physical on Chart: Yes. If H&P is completed, is and addenduem needed: No; If yes, is the addendum complete: Yes. Visualize and Verify Site with Patient/Guarantor: N/A. Relevant Radiology Images available: Yes. Pre-op teaching completed and patient verbalized understanding. The risks, benefits, and alternatives of sedation and/or procedure were discussed by physician. The patient agrees to continue. Procedure started. Physician arrived. 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 Chest Pain Symptom Assessment: Typical Angina Symptoms. Correct patient, site and procedure confirmed by cath team. Current diagnosis: Chest Pain. PERRLA. 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 Lungs clear x 5 lobes. IV Site on Arrival: 18 gauge in the left anticubital. IV Fluids: 0.9% NaCl at KVO. 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 Pre Procedural Pulses: bilateral dorsalis pedis was Doppled. Pre Procedural Pulses: bilateral posterior tibial was Doppled. Pre Procedural Pulses: bilateral radial was 3+. Oxygen started at 2liters/min via nasal canula. right groin was prepped with chloroprep then draped in the usual sterile fashion. right radial was prepped with chloroprep then draped in the usual sterile fashion. Baseline sample Acquired. HR: 64 BPM. Physician scrubbed in. Immediate Pre-Procedure Time Out. Correct Patient: Yes; Correct Procedure: Yes; Correct Site: Yes; Correct Patient Position: Yes; Correct Supplies: Yes; Dried Flammable Prep: Yes; Blood Products Available: Yes;. Lidocaine 1% infiltrated to the right groin. Arterial access obtained. A 5 gibraltarian TIG catheter in over wire. Wire out. Contrast hand injected through the catheter. Catheter removed over the exchange wire. A 5 gibraltarian JR4 catheter in over wire. Multiple views taken of right coronary artery. Catheter removed over the exchange wire. A 5 gibraltarian TIG catheter in over wire. Multiple views taken of left coronary artery. Catheter removed over the exchange wire. 6 gibraltarian JR 4 guide catheter was inserted over the wire. EDP Sample taken: LV 154/-5,27; HR: 68 BPM; SpO2: 98%. Pullback taken: LV 153/-6,25; AO 142/50(88); Mean: 9mmHg, Peak to Peak: 11mmHg, SEP: 26sec/min; HR: 72 BPM; SpO2: 98%. [place] guidewire was advanced through the guide catheter to lesion in the distal RCA. Balloon inserted to lesion in the distal RCA. Balloon out. Guideliner inserted OTW. Guideliner and wire out. Catheter out. Lidocaine 1% infiltrated to the right groin. Alisa Ritter RT(R) was relieved by Tianna Allen RN as monitoring person. Arterial access obtained. 6 gibraltarian JR 4 guide catheter was inserted over the wire. [place] guidewire was advanced through the guide catheter to lesion in the distal RCA. Unable to cross lesion, guidewire removed. [place] guidewire was advanced through the guide catheter to lesion in the distal RCA. Guidewire advanced across lesion. Balloon inserted to lesion in the distal RCA. Undeployed balloon out over wire. Guideliner inserted OTW. Balloon inserted to lesion in the distal RCA. Inflation number : 1 A MDT NC EUPHORA RX [id number] BALLOON was prepped and advanced across the Dist RCA , then inflated to 12 SIMIN for 0:30 seconds. Balloon out. Results checked. Balloon inserted to lesion in the distal RCA. Inflation number : 2 A MDT NC EUPHORA RX [id number] BALLOON was prepped and advanced across the Dist RCA , then inflated to 12 SIMIN for 0:30 seconds. Balloon out. Stent inserted to lesion in the distal RCA. Inflation Number : 3 A MDT R TUSHAR 2.75X12 AGUILAR -Lot Number# [id number] EXP 03-10-2024 was prepped and advanced across the Dist RCA. The stent was deployed at 12 SIMIN for 0:31 seconds. Results checked. Stent balloon pulled into guide catheter. Stent balloon respositioned to lesion in distal RCA. Inflation number: 4 The stent balloon was then re-inflated across the Dist RCA to 12 SIMIN for 0:20 seconds. Stent balloon out over wire. Results checked. Stent inserted to lesion in the distal RCA. Inflation Number : 5 A MDT R TUSHAR 2.75X18 AGUILAR -Lot Number# [id number] EXP 12-11-25 was prepped and advanced across the Dist RCA. The stent was deployed at 12 SIMIN for 0:31 seconds. Stent balloon and wire out. Guideliner out. Guide catheter out. Pt family updated. A Suture was successful obtaining hemostatsis at the Right Femoral artery insertion site. Sheath(s) sutured into position with 2-0 silk and sterile 4x4's and Op-site applied over the site. No oozing or signs and symptoms of hematoma noted. Arterial sheath flushed and connected to tranducer and pressure bag with heparinized saline. A TR Band was successful obtaining hemostatsis at the Right Radial artery insertion site. Post Procedure: Pulses reassessed and unchanged. PERRLA. 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 No VTE prophylaxis required. Medication's Wasted: Nitro = 49.6 mg. Medication's Wasted: Heparin = 4000 units. Total IV fluids: 117 mL. Post-op diagnosis: CAD, status post pci with 2 stents distal RCA. Complications: None. Estimated blood loss: 5mL-10mL. Responsiveness - Normal response to verbal stimuli; alert and oriented, PERRLA. Airway - Unaffected, no intervention required; spontaneous ventilation. Circulation: W/N/L, pulses unchanged. Nausea/Vomiting: No. Procedure completed. Patient transferred by bed to CPRU. Access Site Site: Right Radial artery Sheath Size: 6 Fr Hemostasis Method: TR Band Hemostasis Success: Successful Site: Right Femoral artery Sheath Size: 6 Fr Hemostasis Method: Suture Hemostasis Success: Successful Procedure Medications Start: 6:54 AM Stop: 6:54 AM Medication: Versed Amount: 1 mg Route: I.V. Start: 6:54 AM Stop: 6:54 AM Medication: Fentanyl Amount: 50 mcg Route: I.V. Start: 7:05 AM Stop: 7:05 AM Medication: Nitrogylcerin Amount: 200 mcg Route: I.A. Start: 7:05 AM Stop: 7:05 AM Medication: Versed Amount: 1 mg Route: I.V. Start: 7:06 AM Stop: 7:06 AM Medication: Fentanyl Amount: 50 mcg Route: I.V. Start: 7:18 AM Stop: 7:18 AM Medication: Heparin Amount: 5000 units Route: I.V. Start: 7:46 AM Stop: 7:46 AM Medication: Versed Amount: 1 mg Route: I.V. Start: 7:48 AM Stop: 7:48 AM Medication: Versed Amount: 1 mg Route: I.V. Start: 8:16 AM Stop: 8:16 AM Medication: Nitrogylcerin Amount: 200 mcg Route: I.C. Start: 8:27 AM Stop: 8:27 AM Medication: Plavix Amount: 600 mg Route: P.O. I, the attending physician, have reviewed and verified all procedure medications. Yes, all medications given per verbal order History/Risk Factors Hypertension: Yes Dyslipidemia: Yes Peripheral Arterial Disease (PAD): Yes Myocardial Infarction (NH): No Obesity: No Renal Disease: No Tobacco Use: Current/Recent(w/in 1 year) Prior Interventions PCI: Yes CABG: No Valve Surgery: No Report Signatures Finalized by Dr. Nicholas Pearson MD on 02/09/2024 08:57 AM
--- NOTE | 2024-02-09 10:02 | PC.NURSE ---
Patient arrived on floor at 0920 with 6 pashto sheath and TR band in place. TR band filled with 15ml of air and sheath sutured in. Patient resting comfortably in bed with all vitals WNL. She has been instructed not to move right leg or bend at the waist above 30 degrees for at least the next 6 hours. Patient verbalized understanding. Patient asking for something to eat at this time.
[2024-02-09] MEDS: metoprolol tartrate 25 mg Tablet PO ×2 (10:14→17:28)
[2024-02-09] MEDS: isosorbide mononitrate ER 30 mg Tablet PO (10:14)
[2024-02-09] MEDS: clopidogrel 75 mg Tablet PO (10:14)
[2024-02-09] MEDS: sodium chloride 0.45% 1,000 ML 100 ML IV (10:16)
[2024-02-09] MEDS: cyclobenzaprine 10 mg Tablet 5 MG PO (10:18)
[2024-02-09] MEDS: cholecalciferol (vitamin D3) 1,000 unit Tablet 1000 UNIT PO (10:18)
[2024-02-09 10:41] LABS: Partial Thromboplastin Time 42.8 SECONDS (23.9-36.7)
--- NOTE | 2024-02-09 11:36 | PC.NURSE ---
Sheath removed and control gained at 1105. Pressure held until 1125. No hematoma noted. Bandaged with 4x4 gauze and tegaderm. Patient instructed that she must keep her right leg still until at least 1530. Patient verbalized understanding.
--- NOTE | 2024-02-09 11:48 | PC.NURSE ---
Patient non compliant with keeping right leg straight. Reeducating patient is needed often.
--- NOTE | 2024-02-09 13:07 | PC.NURSE ---
TR band removed at 1306. No hematoma noted.
[2024-02-09] MEDS: PARoxetine 20 mg Tablet 40 MG PO (21:49)
[2024-02-09] MEDS: atorvastatin 40 mg Tablet 20 MG PO (21:49)
[2024-02-09] MEDS: LORazepam 0.5 mg Tablet PO (21:49)
[2024-02-09] MEDS: aspirin 81 mg EC Tablet PO (21:49)
[2024-02-10 04:32] VITALS: BP 151/59; PULSE 68; RESP 19; TEMP 37; O2SAT 92
[2024-02-10] MEDS: cholecalciferol (vitamin D3) 1,000 unit Tablet 1000 UNIT PO (06:30)
[2024-02-10] MEDS: lisinopril 20 mg Tablet 40 MG PO (06:30)
[2024-02-10] MEDS: cyanocobalamin 1,000 mcg Tablet 1000 MCG PO (06:30)
[2024-02-10 07:00] VITALS: BP 160/60; PULSE 63; RESP 16; TEMP 37; O2SAT 96
[2024-02-10] MEDS: isosorbide mononitrate ER 30 mg Tablet PO (07:56)
[2024-02-10] MEDS: metoprolol tartrate 25 mg Tablet PO (07:56)
[2024-02-10] MEDS: clopidogrel 75 mg Tablet PO (07:56)
--- NOTE | 2024-02-10 08:09 | PM.DCS ---
Discharge Providers Date of Admission: February 09, 2024 Date of Discharge: February 10, 2024 Attending Provider at Admission: Nicholas Pearson MD Attending Provider at Discharge: Francisco Garcia MD Primary Care Provider: Cezar Lorenz MD Diagnoses at Discharge Discharge Diagnosis (1) History of hypertension: Status: Acute (2) Peripheral arterial occlusive disease: Status: Inactive (3) Hx of hyperlipidemia: Status: Acute (4) Exertional dyspnea: Status: Acute (5) Hypertension: Status: Acute (6) CAD (coronary artery disease): Status: Acute Qualifiers: Associated angina: without angina Coronary Disease-Associated Artery/Lesion type: [place] artery [place] vs. transplanted heart: eyak heart Qualified Code(s): I25.10 - Atherosclerotic heart disease of [place] coronary artery without angina pectoris (7) Chest discomfort: Status: Inactive Reason for Visit Reason for Visit: R94.39 Brief History: 73 year old woman who has been having chest pain/shortness of breath. Had stress test showing ischemia in RCA territory. Hospital Course Hospital Course Patient had coronary angiogram showing significant RCA stenosis s/p PCI with 1 stent. Patient stayed stable overnight and sent home on dual antiplatelet therapy with aspirin and plavix. Physical Exam Narrative: GENERAL: Alert and oriented x3 NECK: Supple LUNGS: Clear to auscultation bilaterally. HEART: Regular rate and rhythm. EXTREMITIES: No edema. NEUROLOGIC: Exam normal. SKIN: Unremarkable. Discharge Data Studies Completed and Pending Completed Studies During Hospitalization Category Date Time Status [employer] request for service Routine Exams 02/09/24 07:00 Completed Laboratory Results WBC 8.94 10^3/uL (3.29-11.43) 02/09/24 06:25 RBC 4.46 10^6/uL (3.85-5.65) 02/09/24 06:25 Hgb 13.10 g/dL (11.27-16.99) 02/09/24 06:25 Hct 38.0 % (36-47) 02/09/24 06:25 MCV 85.2 fl (85-98) 02/09/24 06:25 MCH 29.4 pg (27-33) 02/09/24 06:25 MCHC 34.5 g/dL (30-55) 02/09/24 06:25 RDW 13.2 % (12.1-15.1) 02/09/24 06:25 Plt Count 333 10^3/cmm (157-399) 02/09/24 06:25 MPV 8.7 fL (7.4-10.4) 02/09/24 06:25 Neut % (Auto) 63.3 % 02/09/24 06:25 Lymph % (Auto) 28.4 % 02/09/24 06:25 [place] % (Auto) 6.9 % 02/09/24 06:25 Eos % (Auto) 0.0 % 02/09/24 06:25 Baso % (Auto) 1.1 % 02/09/24 06:25 Neut # (Auto) 5.65 10^3/uL (1.8-7.7) 02/09/24 06:25 Lymph # (Auto) 2.5 10^3/uL (0.8-4.8) 02/09/24 06:25 [place] # (Auto) 0.6 10^3/uL (0.2-0.9) 02/09/24 06:25 Eos # (Auto) 0.0 10^3/uL (0.0-0.8) 02/09/24 06:25 Baso # (Auto) 0.1 10^3/uL (0.0-0.1) 02/09/24 06:25 Nucleated RBC % (auto) 0 % 02/09/24 06:25 Nucleated RBCs # 0.0 /100WBC 02/09/24 06:25 APTT 42.8 SECONDS (23.9-36.7) H 02/09/24 10:20 Sodium 130 mmol/L (136-145) L 02/09/24 06:25 Potassium 4.3 mmol/L (3.5-5.1) 02/09/24 06:25 Chloride 92 mmol/L (98-107) L 02/09/24 06:25 Carbon Dioxide 26 mmol/L (22-29) 02/09/24 06:25 Anion Gap 16.3 (5-19) 02/09/24 06:25 BUN 13 mg/dL (8-23) 02/09/24 06:25 Creatinine 0.5 mg/dL (0.5-0.9) 02/09/24 06:25 GFR Calculation Not Reportable 07/25/24 06:25 Glucose 101 mg/dL (65-115) 02/09/24 06:25 Calculated Osmolality 270 mOsm/kg (285-295) L 02/09/24 06:25 Calcium 9.0 mg/dL (8.5-10.5) 02/09/24 06:25 Vitals Last Vital Signs Temp 98.6 F 02/10/24 07:00 Pulse 63 02/10/24 07:00 Resp 16 02/10/24 07:00 BP 160/60 02/10/24 07:00 Pulse Ox 96 02/10/24 07:00 O2 Del Method Room Air 02/10/24 07:00 Discharge Plan Discharge Patient Disposition: Home Prescriptions: New clopidogrel 75 mg Tablet 75 mg PO DAILY Qty: 90 3RF Continued cholecalciferol (vitamin D3) 25 mcg (1,000 unit) capsule 25 mcg PO QAM hydrocodone-acetaminophen 7.5-325 mg tablet 1 tab PO BID PRN (Reason: Pain) lorazepam 0.5 mg tablet 0.5 mg PO BEDTIME PRN (Reason: sleep) simvastatin 40 mg tablet 40 mg PO BEDTIME benazepril 40 mg tablet 40 mg PO QAM aspirin [Adult Aspirin Regimen] 81 mg tablet,delayed release (DR/EC) 81 mg PO BEDTIME albuterol sulfate [Ventolin HFA] 90 mcg/actuation HFA aerosol inhaler 2 puff INHALATION Q4H PRN (Reason: shortness of breath or wheezing) nitroglycerin [Nitrostat] 0.4 mg tablet, sublingual 0.4 mg SUBLINGUAL Q5M PRN (Reason: chest pain) Qty: 25 3RF Rx Instructions: do not exceed 3 doses per episode ipratropium-albuterol 0.5 mg-3 mg(2.5 mg base)/3 mL solution for nebulization 3 ml inhalation Q6H PRN (Reason: shortness of breath or wheezing) Qty: 360 3RF Otezla 30 mg tablet 30 mg PO BID Qty: 60 6RF metoprolol tartrate 25 mg tablet 25 mg PO BID Qty: 180 3RF Breztri Aerosphere 160-9-4.8 mcg/actuation HFA aerosol inhaler 2 inh inhalation BID Qty: 10.7 6RF isosorbide mononitrate 30 mg tablet extended release 24 hr 30 mg PO DAILY Qty: 90 3RF paroxetine HCl 40 mg tablet 40 mg PO BEDTIME cyclobenzaprine 5 mg tablet 5 mg PO DAILY PRN (Reason: Muscle Spasm) Vitamin B-12 1 tab PO QAM Referrals: Tasneem Fox FNP [Nurse Practitioner] - 02/28/24 1:00 pm Cezar Lorenz MD [Primary Care Provider] - 02/13/24 1:30 pm Diet: Cardiac Activity: Increase activity as tolerated Patient Instructions: Clopidogrel (By mouth) (Plavix), Chest Pain Stoplight, Post Angiogram Home Care Instructions, Coronary Angioplasty (DC) Discharge Date/Time: 02/10/24 10:40 Discharge Attestations Time Spent in Discharge Care*: less than 30 min Quality Metrics Clinical Quality Measures [ No reported AMI, CVA or VTE this stay] Coding Level of Care Code Acute Code for Chg Fwd Diagnoses History of hypertension Z86.79 Peripheral arterial occlusive disease I77.9 Hx of hyperlipidemia Z86.39 Exertional dyspnea R06.00 Hypertension I10 Coronary artery disease involving eyak coronary artery of eyak heart without angina pectoris I25.10 Associated angina: without angina Coronary Disease-Associated Artery/Lesion type: [place] artery [place] vs. transplanted heart: [place] heart Chest discomfort R07.89
[2024-02-10 08:26] VITALS: PULSE 71; RESP 16; O2SAT 94
[2024-02-10 10:29] VITALS: PULSE 71; RESP 16; O2SAT 94
--- NOTE | 2024-02-10 10:39 | PC.NURSE ---
discharge instructions given and explained.pt verb understanding of instructions.discharged via w/c to exit at this time.friend to drive pt home.
== END 2024-02-10 10:40 | disposition home or self-care (01) ==
LOC: CCL 06:01 → CSU 08:59
PROVIDERS: PCP Family Medicine; Visit Provider Internal Medicine Cardiovascular Disease
DX: I25.10 Atherosclerotic heart disease of native coronary artery without angina pectoris (principal); I25.84 Coronary atherosclerosis due to calcified coronary lesion; I10 Essential (primary) hypertension; E78.5 Hyperlipidemia, unspecified; Z86.79 Personal history of other diseases of the circulatory system; I77.9 Disorder of arteries and arterioles, unspecified; Z86.39 Personal history of other endocrine, nutritional and metabolic disease; R06.00 Dyspnea, unspecified; Z95.5 Presence of coronary angioplasty implant and graft; J44.9 Chronic obstructive pulmonary disease, unspecified; G47.30 Sleep apnea, unspecified; Z79.82 Long term (current) use of aspirin; K21.9 Gastro-esophageal reflux disease without esophagitis; F17.210 Nicotine dependence, cigarettes, uncomplicated
CPT/HCPCS: 36415; 80048; 85025; 85730; 93458; 96374; 96375; 99152; 99153; C1725; C1769; C1874; C1887; C1894; C9600; J1644; J2250; J3010; J3490; J7030; Q0163; Q9967

== ENCOUNTER 2024-02-24 09:08 | Outpatient (CLI) | payer MEDICARE, MEDICAID, SELFPAY ==
--- NOTE | 2024-02-24 09:30 | USCV_ITS ---
Eula Walter Age: 73 Gender: F : 1950 Exam Date: 02/24/2024 09:23 Ordering Phys: Tasneem Fox Technologist: CT Exam Location: [facility] [place]_ Indication: palp area rt groin post hrt cath Findings 1 hematoma Conclusions 3.9 x 2.3 x 3.0cm Mixed echogenicity hematoma RIGHT groin No pseudoaneurysm Karson Peace MD (Electronically Signed) Final Date: 24 February 2024 11:42 S
== END 2024-02-24 09:09 | disposition home or self-care (01) ==
LOC: RAD 09:09
PROVIDERS: PCP Family Medicine; Visit Provider Nurse Practitioner Family
DX: I72.9 Aneurysm of unspecified site; L76.32 Postprocedural hematoma of skin and subcutaneous tissue following other procedure
CPT/HCPCS: 93926

== ENCOUNTER → 2024-02-28 12:54 | Outpatient (BNVA) | payer MEDICARE, MEDICAID, SELFPAY | PROVIDERS: PCP Family Medicine; Visit Provider Nurse Practitioner Family | DX: Z09 Encounter for follow-up examination after completed treatment for conditions other than malignant neoplasm (principal); I73.9 Peripheral vascular disease, unspecified | CPT/HCPCS: 99214 ==

== ENCOUNTER 2024-03-30 12:44 | Outpatient (CLI) | payer MEDICARE, MEDICAID, SELFPAY ==
[2024-03-30] MEDS: iohexol 350 mg/mL 500 mL Btl (per mL) IV (13:13)
--- NOTE | 2024-03-30 13:15 | CTR_ITS ---
PROCEDURE INFORMATION: Exam: CTA Abdominal Aorta and Bilateral Lower Extremities (Run-off) With Contrast Exam date and time: 03/30/2024 1:00 PM Age: 73 years old Clinical indication: Other: Claudication TECHNIQUE: Imaging protocol: Computed tomographic angiography of the of the abdominal aorta, pelvis and bilateral lower extremities with contrast. 3D rendering (Not supervised by radiologist): MIP and/or 3D reconstructed images were created by the technologist. Radiation optimization: All CT scans at this facility use at least one of these dose optimization techniques: automated exposure control; mA and/or kV adjustment per patient size (includes targeted exams where dose is matched to clinical indication); or iterative reconstruction. Contrast material: OMNI 350; Contrast volume: 120 ml; Contrast route: INTRAVENOUS (IV); COMPARISON: CT angio abd aorta runof [id number] 03/26/2022 3:27 PM RADIATION DOSE METRICS: Total DLP (mGy-cm): 1167.75 FINDINGS: Aorta: Normal caliber of the abdominal aorta without aneurysm or dissection. Moderate atherosclerosis, involving the ostia of the celiac artery, mesenteric artery, bilateral renal arteries. Small penetrating ulcer measuring arising 5 x 5 mm noted arising from the right lateral wall of the distal aorta approximately 3.6 cm cephalad to the iliac bifurcation. Small penetrating ulcer measuring 4 x 6 x 9 mm arising from the medial lateral wall of the right proximal common iliac artery. Celiac trunk and mesenteric arteries: See Aorta finding. Renal arteries: See Aorta finding. Right iliac arteries: Moderate atherosclerosis and focal moderate stenosis at the distal right external iliac artery. Mild stenosis in the remainder of vessel. Right femoral/popliteal arteries: Moderate atherosclerosis and stenosis in the right common femoral artery. Moderate atherosclerosis and diffuse mild stenosis of the right superficial femoral artery. Moderate atherosclerosis and stenosis of the proximal right popliteal artery. Severe stenosis in the midportion. Mild-moderate stenosis distally. Right infrapopliteal arteries: Preserved vascular flow in the right infrapopliteal vessels, with three-vessel runoff to the level of the ankle. Decreased contrast opacification of the level of the foot, a component of which is due to slow flow. Preserved flow in the posterior tibial artery to the level of the foot. Left iliac arteries: Moderate atherosclerosis and [id number] stenosis in the left external iliac artery. Left femoral/popliteal arteries: Moderate atherosclerosis and mild stenosis in the left common femoral artery. Severe atherosclerosis and stenosis of the proximal left superficial femoral artery. Moderate diffuse atherosclerosis and stenosis in the remainder of the left superficial femoral artery. Moderate atherosclerosis and stenosis of the left popliteal artery. Left infrapopliteal arteries: No occlusion or significant stenosis. Lungs: Mild bronchiectasis in the lower lobes. Mild centrilobular emphysema. Mild right basilar subsegmental atelectasis. Liver: No mass. Gallbladder and biliary ducts: Unremarkable. No calcified stones. No ductal dilation. Pancreas: Unremarkable. No mass. No ductal dilation. Spleen: Normal. No splenomegaly. Adrenal glands: Normal. No mass. Kidneys and ureters: Normal. No mass. Stomach and bowel: Unremarkable. No obstruction. No mucosal thickening. Appendix: Normal appendix. Urinary bladder: Unremarkable. No mass. Reproductive: Unremarkable as visualized. Intraperitoneal space: Unremarkable. No free air. No significant fluid collection. Lymph nodes: No lymphadenopathy. Bones/joints: No acute fracture. No dislocation. Soft tissues: Unremarkable. Other findings: Right-side:; Left side:; Infrapopliteal vessels are patent with preserved three-vessel runoff to the lower leg. Tapering decreased contrast opacification in the anterior tibial and peroneal arteries, a component of which is due to slow flow. CT/CT angio abd aorta runof [id number] IMPRESSION: 1. Diffuse moderate to severe atherosclerosis and stenosis in the bilateral lower extremity arteries to the level of the popliteal arteries. 2. No significant atherosclerosis or stenosis of the bilateral infrapopliteal vessels. There is preserved three-vessel runoff to the level of the ankles bilaterally. Tapering decreased contrast opacification distal to the ankles bilaterally likely due to slow flow. 3. There is an enhancing mural nodule arising from the posterior wall of the ascending colon measuring 14 x 15 mm as seen on image 219 series 5. Worrisome for malignancy until proven otherwise. Nonemergent follow-up colonoscopy recommended for complete evaluation.
== END 2024-03-30 12:45 | disposition home or self-care (01) ==
LOC: RAD 12:44
PROVIDERS: PCP Family Medicine; Visit Provider Nurse Practitioner Family
DX: I73.9 Peripheral vascular disease, unspecified (principal); I70.8 Atherosclerosis of other arteries
CPT/HCPCS: 36415; 75635; 80048

== ENCOUNTER → 2024-05-17 13:30 | Outpatient (BNVA) | payer MEDICARE, MEDICAID, SELFPAY | PROVIDERS: PCP Family Medicine; Visit Provider Nurse Practitioner Family | DX: D48.5 Neoplasm of uncertain behavior of skin (principal); L57.0 Actinic keratosis; L72.0 Epidermal cyst; D69.2 Other nonthrombocytopenic purpura; L73.8 Other specified follicular disorders; I78.8 Other diseases of capillaries; L85.3 Xerosis cutis; Z85.828 Personal history of other malignant neoplasm of skin | CPT/HCPCS: 11102; 17000; 99213 ==

== ENCOUNTER → 2024-06-05 13:11 | Outpatient (BNVA) | payer MEDICARE, MEDICAID, SELFPAY | PROVIDERS: PCP Family Medicine; Visit Provider Internal Medicine Cardiovascular Disease | DX: I73.9 Peripheral vascular disease, unspecified (principal); I10 Essential (primary) hypertension; R58 Hemorrhage, not elsewhere classified; I25.10 Atherosclerotic heart disease of native coronary artery without angina pectoris; F17.210 Nicotine dependence, cigarettes, uncomplicated; Z95.5 Presence of coronary angioplasty implant and graft | CPT/HCPCS: 99214 ==

== ENCOUNTER 2024-06-20 13:21 | Observation (INO) | payer MEDICARE, MEDICAID, SELFPAY ==
[2024-06-20 06:00] VITALS: BP 186/71; PULSE 69; RESP 20; TEMP 36.7; O2SAT 95; BMI 27.4
--- NOTE | 2024-06-20 06:00 | XACV_ITS ---
Ht: 163 cm Wt: 73 kg BSA: 1.83 m2 Any Known Allergies: No known allergies Gender: Female : 1950 Exam Type: Invasive Peripheral Vascular Procedure(s): Procedure Description: Peripheral Cath Diagnostic Procedure Procedure Description: Abdominal aortic angiography Procedure Description: Lower extremities' angiography Procedure Description: Peripheral vascular Intervention Procedure Description: PV Balloon Procedure Description: PV Stent Procedure Description: PV Atherectomy Exam Priority: Routine [address]; Lower Extremity Diagnostic Findings Indication for peripheral angiogram: Critical limb ischemia Catheters used: Seeker, long destination 6 [place] sheath Abdominal aortogram: Right renal artery: Luminal irregularity without significant stenosis Left renal artery: Luminal irregularity without significantRight common iliac proximal moderate lesion, distal mild stenosis Right external iliac: Luminal irregularity without significant stenosis Right internal iliac: Luminal irregularity without significant stenosis Right common femoral artery: Moderate eccentric stenosis Right profundofemoral artery: Mid luminal irregularity without significant Right SFA: Ostial SFA is critically stenosed with high-grade 90% eccentric calcified lesion, distal SFA has eccentric high-grade 90% critical stenosis Right popliteal artery: 100% chronically occluded Right tibioperoneal trunk: 100% chronically occluded Right anterior tibial artery: 100% chronically occluded in the ostium fills with collaterals Right posterior tibial artery: Appeared to be patent fills with collaterals Right peroneal artery: Appeared to be patent fills with collateralsLeft common iliac artery: Mid eccentric mild to moderate stenosis Left external iliac artery: Luminal irregularity Left internal iliac artery: Cannot well-visualized Left common femoral artery: Luminal irregularity Left profundofemoral artery Left SFA artery: Subtotally occluded with high-grade stenosis at the ostium and the proximal segment Left popliteal artery: Chronically occluded in its proximal segment Left tibioperoneal artery: Chronically occluded at the junction of popliteal Left anterior tibial artery: Appeared to be patent fills with collaterals Left posterior tibial artery: Appeared to be patent fills with graft in the proximal segment possible mid segment stenosis but mid to distal appeared to be patent Left peroneal artery: Luminal irregularities with proximal moderate to high-grade stenosisLeft arch foot: Not well-visualized Right arch foot: Not well-visualized. Lower Extremity Interventional Findings Successful intervention to right ostial mid right SFA, popliteal tibioperoneal trunk. Short 6 [place] sheath was exchanged with long destination sheath. Glidewire was advanced with the help of seeker into the distal SFA. Glidewire was then exchanged with long run-through wire which was advanced into the anterior tibial. Viper wire was exchanged with a run-through wire through seeker. Using 1.5 bur of CSI multiple atherectomy runs were performed from ostial SFA, popliteal, tibioperoneal trunk. Balloon angioplasty using 3 x 40 Wharncliffe was performed and tibioperoneal trunk. Balloon angioplasty with 4.0 x 200 Wharncliffe balloon that TP popliteal and SFA angioplasty using, 5.0 x 200 Wharncliffe in the popliteal and SFA was performed. Good angiographic result with mormon of flow was noted in SFA popliteal TP anterior posterior and peroneal arteries however ostial SFA still has high-grade lesion which is calcified therefore we decided to stent this with Omnilink 6.0 x 19 mm balloon expandable stent. Excellent angiographic result was obtained. Good runoff showed patent SFA popliteal tibioperoneal and three-vessel runoff in the right leg. Right common vessel was noted to have eccentric mild to moderate lesion which does not appear to be significant therefore we will treated medically. Recommendations 1-Return to inpatient for close monitoring and routine peripheral angiogram care 2-Risk factor modification for secondary prevention 3-Statin and aspirin 81 mg life-long, if tolerated 4-Continue Plavix 75mg p.o. daily for at least three months. 5-stage percutaneous angioplasty of the left SFA popliteal for limiting claudication of the left leg. 6-Follow up with Dr. Fox in four weeks and your primary care in 10 days. Hemodynamic Data Phase:Rest AO : 75.0 / 46.0 ( 59.0 ) @ 11:38:00 AM Access Site Site: Left Femoral artery Sheath Size: 6 Fr Hemost... Method: Suture Hemost... Success: Successful Procedure Details Findings Procedure Consent Obtained. Pre-Procedure Time Out. Identified patient by full name and date of as verbalized by the patient/guarantor. Does the consent match the physician's order: Yes. Accurate & Complete Informed Consent: Yes. Inpatient/Outpatient History & Physical on Chart: Yes. If H&P is completed, is and addenduem needed: No. Visualize and Verify Site with Patient/Guarantor: N/A. Relevant Radiology Images available: Yes. The risks, benefits, and alternatives of sedation and/or procedure were discussed by physician. The patient agrees to continue. Procedure started. Current diagnosis: PVD/lifestyle limiting claudication. PERRLA. Strong, equal hand application support bilaterally. Lungs clear x 5 lobes. IV Site on Arrival: 20 gauge in the right anticubital. IV Fluids: 0.9% NaCl at KVO. 0 mL infused prior to director of labor relations. Pre Procedural Pulses: right dorsalis pedis was Absent. Pre Procedural Pulses: left dorsalis pedis was Doppled. Pre Procedural Pulses: bilateral posterior tibial was Doppled. Oxygen started at 2liters/min via nasal canula. bilateral groins was prepped with chloroprep then draped in the usual sterile fashion. Physician notified. Baseline sample Acquired. HR: 68 BPM. Patient's family in the Manager Of Change waiting room. Dr. Fox will update at the completion of the procedure. Equipment: 6F - Femoral. Cardiac Cath Pack. ACIST Manifold Kit Model BT 2000. Heparinized Saline (2 units/mL), 1000 mL bag. Kit, Micropuncture. Physician arrived. Physician scrubbed in. Immediate Pre-Procedure Time Out. Correct Patient: Yes; Correct Procedure: Yes; Correct Site: Yes; Correct Patient Position: Yes; Correct Supplies: Yes; Dried Flammable Prep: Yes; Blood Products Available: N/A;. Lidocaine 1% infiltrated to the left groin. Arterial access obtained with micropuncture set. Unable to thread micropuncture wire. Needle and wire out. Manual pressure held by Dr. Fox. Arterial access obtained with micropuncture set. hand injection of the left iliac performed. A 5Fr UF catheter in over wire. Abdominal aortogram performed in AP @ 10 mL/sec for a total of 30 mL. 0.035 Glidewire advantage in through the UF catheter. UF catheter out. A 5Fr RIM catheter in over the Glidewire advantage. Anesthesia called to assist with sedation. RIM catheter out. Sheath upsized to a 6 Fr. Right common femoral selected and arteriogram with runoff performed @ 10 mL/sec for a total of 30 mL. Anesthesia here. Please see anesthesia record for further sedation, hemodynamic and airway management. Seeker support catheter in over the Glidewire advantage. Glidewire advantage out. 300cm Runthrough guidewire in through the seeker support catheter. Runthrough wire out. Glidewire advantage in through the seeker support catheter. Glidewire advantage out. Hand injection performed through the seeker support catheter. 0.014 Viperwire in through the seeker support catheter. 1.5mm x 145cm Diamondback orbital atherectomy system in over the Viperwire and tested outside of the body. Atherectomy system advanced over the Viperwire to the lesion in the right SFA. Atherectomy performed from the Right Proximal SFA to the Right AT. Atherectomy system out. Inflation number : 1 A AB Wharncliffe 35 FORMING MACHINE UPKEEP MECHANIC HELPER Catheter [id number] was prepped and advanced across the Superficial Femoral, Right , then inflated to 8 SIMIN for 2:00 seconds. Balloon out. Seeker support catheter in over the Viperwire. Seeker support catheter out. Balloon inserted over the wire to the tibial peroneal trunk. Inflation number : 1 A AB ARMADA 14 OTW [id number] was prepped and advanced across the Tibial Peroneal Trunk, Right , then inflated to 8 SIMIN for 0:38 seconds. Inflation number: 2 The AB ARMADA 14 OTW [id number] was reinflated across the Tibial Peroneal Trunk, Right, to 8 SIMIN for 0:55 seconds. Inflation number: 3 The AB ARMADA 14 OTW [id number] was reinflated across the Tibial Peroneal Trunk, Right, to 8 SIMIN for 0:50 seconds. Inflation number: 4 The AB ARMADA 14 OTW [id number] was reinflated across the Tibial Peroneal Trunk, Right, to 8 SIMIN for 0:10 seconds. Inflation number: 5 The AB ARMADA 14 OTW [id number] was reinflated across the Tibial Peroneal Trunk, Right, to 10 SIMIN for 1:02 seconds. Balloon out. Right common femoral selected and arteriogram with runoff performed @ 10 mL/sec for a total of 30 mL. Tianna Allen RN in to scrub for Gregory Gómez RN, [facility]. Inflation number : 2 A AB Wharncliffe 35 FORMING MACHINE UPKEEP MECHANIC HELPER Catheter [id number] was prepped and advanced across the Superficial Femoral, Right , then inflated to 8 SIMIN for 2:00 seconds. Balloon out. Right common femoral selected and arteriogram with runoff performed @ 10 mL/sec for a total of 30 mL. Inflation Number : 1 A Omnilink elite 6.0mm x 19mm x 135cm Balloon-Expandable Stent System -Lot Number# [id number] was prepped and advanced across the Ostial Superficial Femoral, Right. The stent was deployed at 11 SIMIN for 0:42 seconds. Exp . Right common femoral selected and arteriogram with runoff performed @ 10 mL/sec for a total of 30 mL. Stent balloon out over wire. Viperwire out. Sheath upsized to a 6 Fr. ACT drawn. Results 325 seconds. Therapeutic limits - pre-heparin administration 90-150 seconds and monitoring heparin during a vascular procedure >250 seconds. Sheath injected in Left common femoral artery and runoff performed. Dr. Fox scrubbed out. A Suture was successful obtaining hemostatsis at the Left Femoral artery insertion site. Sheath(s) sutured into position with 2-0 silk and sterile 4x4's and Op-site applied over the site. No oozing or signs and symptoms of hematoma noted. Arterial sheath flushed and connected to tranducer and pressure bag with heparinized saline. Post Procedure: Pulses reassessed and unchanged. PERRLA. Strong, equal hand application support bilaterally. No VTE prophylaxis required. Medication's Wasted: Lidocaine 1% = 10 mL. Medication's Wasted: Nitro = 49.6 mg. Medication's Wasted: Other = Versed 1 mg. Total IV fluids: 800 mL. Post-op diagnosis: Atherectomy of the right SFA down to the AT with Ballooning and one Stent to the ostial right SFA. Complications: none. Estimated blood loss: 5mL-10mL. Responsiveness - Normal response to verbal stimuli; alert and oriented, PERRLA. Airway - Unaffected, no intervention required; spontaneous ventilation. Circulation: W/N/L, pulses unchanged. Nausea/Vomiting: No. Procedure completed. Patient transferred by bed to 1st floor. Vital chart was stopped. Procedure Medications Start: 10:56 AM Stop: 10:56 AM Medication: Versed Amount: 1 mg Route: I.V. Start: 10:56 AM Stop: 10:56 AM Medication: Fentanyl Amount: 50 mcg Route: I.V. Start: 11:01 AM Stop: 11:01 AM Medication: Versed Amount: 1 mg Route: I.V. Start: 11:09 AM Stop: 11:09 AM Medication: Fentanyl Amount: 25 mcg Route: I.V. Start: 11:17 AM Stop: 11:17 AM Medication: Versed Amount: 1 mg Route: I.V. Start: 11:22 AM Stop: 11: AM Medication: Fentanyl Amount: 25 mcg Route: I.V. Start: 11:28 AM Stop: 11:28 AM Medication: Heparin Amount: 5000 units Route: I.V. Start: 12:06 PM Stop: 12:06 PM Medication: Heparin Amount: 2000 units Route: I.V. Start: 12:21 PM Stop: 12:21 PM Medication: Heparin Amount: 2000 units Route: I.V. Start: 12:48 PM Stop: 12:48 PM Medication: Nitrogylcerin Amount: 400 mcg Route: I.A. Start: 11:31 AM Stop: 11:31 AM Medication: Versed Amount: 1 mg Route: I.V. I, the attending physician, have reviewed and verified all procedure medications. Yes, all medications given per verbal order History/Risk Factors Hypertension: Yes Dyslipidemia: Yes Peripheral Arterial Disease (PAD): Yes Obesity: Yes Renal Disease: No Tobacco Use: Current/Recent(w/in 1 year) Prior Interventions PCI: Yes CABG: No Valve Surgery: No Date of PCI: 02/09/2024 Report Signatures Finalized by Zen Fox MD on 07/01/2024 12:19 AM
[2024-06-20] MEDS: diphenhydrAMINE 50 mg Capsule PO (06:20)
[2024-06-20 06:25] LABS: Basophils # 0.1 10^3/uL (0.0-0.1); Hematocrit 36.8 % (36-47); Lymphocytes # 2.3 10^3/uL (0.8-4.8); Lymphocytes % 30.3 %; Mean Corpuscular HGB Conc 33.4 g/dL (30-55); Mean Corpuscular Hemoglobin 29.1 pg (27-33); Mean Corpuscular Volume 87.2 fl (85-98); Mean Platelet Volume 8.5 fL (7.4-10.4); Monocytes # 0.6 10^3/uL (0.2-0.9); Monocytes % 7.5 %; Neutrophils # 4.64 10^3/uL (1.8-7.7); Neutrophils % 60.8 %; Nucleated Red Blood Cells % 0 %; Platelet Count 316 10^3/cmm (157-399); Red Blood Count 4.22 10^6/uL (3.85-5.65); Red Cell Distribution Width 13.5 % (12.1-15.1); White Blood Count 7.63 10^3/uL (3.29-11.43)
[2024-06-20 06:43] LABS: Anion Gap 14.9 (5-19); Blood Urea Nitrogen 16 mg/dL (8-23); Calcium 8.2 mg/dL (8.5-10.5); Carbon Dioxide 27 mmol/L (22-29); Chloride 90 mmol/L (98-107); Glucose 102 mg/dL (65-115); Osmolality Calculated 267 mOsm/kg (285-295); Potassium 3.9 mmol/L (3.5-5.1); Sodium 128 mmol/L (136-145)
--- NOTE | 2024-06-20 10:55 | W.PM.OPSUD ---
Surgery/Procedure H&P Update DATE OF PROCEDURE: June 20, 2024 DATE H&P PERFORMED: 06/05/24 H&P UPDATE INFORMATION: I have reviewed H&P completed within last 30 days, I have examined patient prior to procedure and No changes to prior documentation PREOP DIAGNOSIS: Lifestyle limiting claudication bilaterally more right than left/PAD PRIMARY INDICATION FOR PROCEDURE: Severe PAD Abnormal CTA of lower extremities Lifestyle limiting claudication PLANNED PROCEDURE: Operation Date: 06/20/24 07:00 Proposed Procedures p Peripheral Diagnostic - Periph Angio Bilat(Bilateral) - Zen Fox MD PATIENT REASSESSED PRIOR TO SEDATION, WITH NO CHANGE NOTED: Yes PHYSICAL EXAM: alert, oriented x 3, clear to auscultation bilaterally, regular rate & rhythm and operative site marked AIRWAY EVAL/ANESTHESIA PLAN: ASA II, Risks, benefits & alternatives of sedation and/or procedure discussed and Patient agrees to continue as planned
--- NOTE | 2024-06-20 11:30 | ANES.PREANE2 ---
Pre-Anesthetic Assessment Height/Weight: Height 5 ft 4 in Weight 160 lb Temp Pulse Resp BP Pulse Ox O2 Del Method 98.1 F 69 20 H 186/71 95 Room Air 06/20/24 06:00 06/20/24 06:00 06/20/24 06:00 06/20/24 06:00 06/20/24 06:00 06/20/24 06:00 Preop Diagnosis: Lifestyle limiting claudication bilaterally more right than left/PAD Operation Date: 06/20/24 07:00 Proposed Procedures p Peripheral Diagnostic - Periph Angio Bilat(Bilateral) - Zen Fox MD Was Beta Shan taken within 24 hours: Yes Social Tobacco and No alcohol Exam unable to be performed Airway Comments: Comments: unable to be performed Anesthetic Plan ASA status: 3 Anesthesia: MAC Other: I was called 30 minutes into the procedure requesting assistance for sedation as patient was not tolerating procedure Per chart review, history of hypertension on metoprolol Type 2 diabetes on metformin Labs from today reviewed and acceptable for procedure. Sodium 128, chronic hyponatremia Consent unable to be obtained as patient was already given 3 mg Versed and 100 mcg of fentanyl prior to my arrival. Patient was not tolerating procedure. Confirmed no allergies. Reviewed medical history Plan for MAC anesthetic Medications/Allergies Home Medications Medication Instructions Recorded Confirmed Last Taken Type albuterol sulfate 90 mcg/actuation 2 puff inhalation Q4H PRN 03/19/20 06/05/24 02/08/24 19:30 History aerosol inhaler (Ventolin HFA) shortness of breath or wheezing aspirin 81 mg tablet,delayed 81 mg PO BEDTIME 03/19/20 06/19/24 06/19/24 19:30 History release (Adult Aspirin Regimen) benazepril 40 mg tablet 40 mg PO QAM 03/19/20 06/19/24 06/19/24 09:00 History lorazepam 0.5 mg tablet 0.5 mg PO BEDTIME PRN sleep 03/19/20 06/19/24 06/19/24 19:30 History cholecalciferol (vitamin D3) 25 25 mcg PO QAM 12/31/20 06/19/24 06/19/24 09:00 History mcg (1,000 unit) capsule nitroglycerin 0.4 mg sublingual 0.4 mg sublingual Q5M PRN chest 09/03/21 06/19/24 Unknown Rx tablet (Nitrostat) pain #25 tabs hydrocodone 7.5 mg-acetaminophen 1 tab PO BID PRN Pain 12/10/21 06/19/24 02/08/24 09:00 History 325 mg tablet Vitamin B-12 1 tab PO QAM 12/29/21 06/19/24 05/24/22 21:00 History cyclobenzaprine 5 mg tablet 5 mg PO DAILY PRN Muscle Spasm 12/29/21 06/19/24 06/19/24 19:30 History paroxetine HCl 40 mg tablet 40 mg PO BEDTIME 12/29/21 06/19/24 06/19/24 19:30 History ipratropium 0.5 mg-albuterol 3 mg 3 ml inhalation Q6H PRN shortness 09/07/22 06/19/24 06/19/24 19:30 Rx (2.5 mg base)/3 mL nebulization of breath or wheezing #360 mL soln apremilast 30 mg tablet (Otezla) 30 mg PO BID #60 tabs 02/11/23 06/05/24 02/08/24 19:30 Rx metoprolol tartrate 25 mg tablet 25 mg PO BID #180 tabs 06/07/23 06/19/24 06/19/24 19:30 Rx budesonide 160 mcg-glycopyr 9 2 inh inhalation BID #10.7 grams 07/26/23 06/19/24 06/19/24 19:30 Rx mcg-formot 4.8 mcg/actuation HFA inhaler (Breztri Aerosphere) isosorbide mononitrate 30 mg 30 mg PO DAILY #90 tabs 09/12/23 06/19/24 06/19/24 09:00 Rx tablet,extended release 24 hr clopidogrel 75 mg tablet 75 mg PO DAILY #90 tabs 02/10/24 06/19/24 06/19/24 19:30 Rx simvastatin 40 mg tablet 40 mg PO BEDTIME #90 tabs 03/30/24 06/19/24 06/19/24 19:30 Rx metformin 500 mg tablet 500 mg PO DAILY 06/05/24 06/19/24 06/19/24 09:00 History Allergies Allergy/AdvReac Type Severity Reaction Status Date / Time No Known Allergies Allergy Verified 06/05/24 13:20 Current Medications Generic Name Dose Route Start Last Admin Trade Name Madhavq PRN Reason Stop Dose Admin Sodium Chloride 1,000 mls @ 50 mls/hr 06/20/24 06:00 06/20/24 06:43 Sodium Chloride 0.9% IV 06/21/24 01:59 Not Given .Q20H ONE PFSH Anesthesia Medical History Chest discomfort CAD (coronary artery disease) Mixed stress and urge urinary incontinence Recurrent UTI Insomnia Hx of colonic polyps Hx of gastroesophageal reflux (GERD) Hx of hyperparathyroidism Hx of irritable bowel syndrome Hx of anxiety disorder Hx of hyperlipidemia Peripheral arterial occlusive disease History of hypertension Hx of sleep apnea Encounter for screening for lung cancer History of COPD Surgical History Hx of tubal ligation Hx of carpal tunnel repair Hx of parathyroidectomy History of bilateral cataract extraction Hx of esophagogastroduodenoscopy Hx of colonoscopy Family History Brother Kidney stones Mother , in late 60s Cancer Breast Diabetes Brain tumor Father , in late 60s Encysted lung fluid Social History Smoking and tobacco/nicotine status: current every day tobacco/nicotine user cigarettes Packs smoked per day: 0.5 Years cigarettes smoked: 40 Quit status (tobacco/nicotine): considering quitting Second hand smoke exposure: No Alcohol intake: current Alcohol intake frequency: holidays/special occasions only Substance/Drug Use: never Lives independently: Yes Household members: none Marital status: Current occupational status: retired Pets and animals: No Do you think of yourself as: Straight/Heterosexual Current gender identity: Female Data Anesthesia 06/20/24 06:15 06/20/24 06:15 Short CBC 06/20/24 Range/Units 06:15 WBC 7.63 (3.29-11.43) 10^3/uL Hgb 12.30 (11.27-16.99) g/dL Hct 36.8 (36-47) % MCV 87.2 (85-98) fl Plt Count 316 (157-399) 10^3/cmm Neut % (Auto) 60.8 % Neut # (Auto) 4.64 (1.8-7.7) 10^3/uL BMP 06/20/24 06:15 Sodium 128 L Potassium 3.9 Chloride 90 L Carbon Dioxide 27 BUN 16 Creatinine 0.5 Glucose 102 Calcium 8.2 L Cardiac Studies: Sestamibi Stress Test (Cardiology) 01/03/24
[2024-06-20] MEDS: sodium chloride 0.9% 1,000 ML 100 ML IV (14:37)
[2024-06-20] MEDS: clopidogrel 300 mg Tablet PO (14:37)
[2024-06-20 16:13] LABS: Partial Thromboplastin Time 112.5 SECONDS (23.9-36.7)
[2024-06-20 17:08] VITALS: BMI 27.4
[2024-06-20 17:48] VITALS: BP 154/48; PULSE 74; RESP 20; TEMP 36.7; O2SAT 96
[2024-06-20 18:12] LABS: Partial Thromboplastin Time 23.6 SECONDS (23.9-36.7)
[2024-06-20 18:59] VITALS: RESP 24
[2024-06-20] MEDS: fentaNYL 50 mcg/mL INJ 2mL IVP (18:59)
[2024-06-20 19:47] VITALS: BP 135/57; PULSE 75; RESP 19; TEMP 36.7; O2SAT 93
[2024-06-20] MEDS: HYDROcodone-acetaminophen 5-325 mg Tablet 1 TAB PO (21:42)
[2024-06-20] MEDS: temazepam 15 mg Capsule PO (21:42)
[2024-06-20] MEDS: lisinopril 20 mg Tablet PO (22:24)
[2024-06-21 00:57] VITALS: BP 150/51; PULSE 84; RESP 18; TEMP 36.6; O2SAT 91
[2024-06-21 03:43] LABS: Basophils # 0.1 10^3/uL (0.0-0.1); Basophils % 0.8 %; Hematocrit 35.2 % (36-47); Lymphocytes # 1.3 10^3/uL (0.8-4.8); Lymphocytes % 13.3 %; Mean Corpuscular HGB Conc 33.5 g/dL (30-55); Mean Corpuscular Hemoglobin 29.8 pg (27-33); Mean Corpuscular Volume 88.9 fl (85-98); Mean Platelet Volume 8.3 fL (7.4-10.4); Monocytes # 0.7 10^3/uL (0.2-0.9); Monocytes % 7.2 %; Neutrophils # 7.62 10^3/uL (1.8-7.7); Neutrophils % 78.5 %; Nucleated Red Blood Cells % 0 %; Platelet Count 285 10^3/cmm (157-399); Red Blood Count 3.96 10^6/uL (3.85-5.65); Red Cell Distribution Width 13.7 % (12.1-15.1); White Blood Count 9.71 10^3/uL (3.29-11.43)
[2024-06-21 04:06] LABS: Anion Gap 14.7 (5-19); Blood Urea Nitrogen 11 mg/dL (8-23); Calcium 8.4 mg/dL (8.5-10.5); Carbon Dioxide 25 mmol/L (22-29); Chloride 99 mmol/L (98-107); Creatinine Clr Calc Pharmacy 58.4139; Glucose 192 mg/dL (65-115); Osmolality Calculated 285 mOsm/kg (285-295); Potassium 3.7 mmol/L (3.5-5.1); Sodium 135 mmol/L (136-145)
[2024-06-21 05:45] VITALS: BP 157/66; PULSE 79; RESP 23; TEMP 36.6; O2SAT 93
[2024-06-21 06:00] VITALS: PULSE 78
[2024-06-21 07:24] VITALS: BP 172/63; PULSE 85; RESP 20; TEMP 37.1; O2SAT 92
[2024-06-21] MEDS: aspirin 81 mg EC Tablet PO (08:11)
[2024-06-21] MEDS: lisinopril 20 mg Tablet PO (08:11)
[2024-06-21 12:49] VITALS: BP 172/63; PULSE 86; RESP 17; O2SAT 91
--- NOTE | 2024-06-21 13:04 | PC.NURSE ---
Patient discharged to home. Instruction provided for follow up needs. No new medications. Stent card given to patient. Patient verbalized complete understanding. Patient taken by wheelchair to private vehicle. Daughter to provide transportation to home.
--- NOTE | 2024-06-21 15:54 | P.DS_ITS ---
Discharge Providers Date of Admission: 06/20/24 13:21 Date of Discharge: June 21, 2024 Attending Provider at Admission: Zen Fox MD Attending Provider at Discharge: Zen Fox MD Primary Care Provider: Cezar Lorenz MD Reason for Visit Reason for Visit: I73.9 Brief History: Patient has a history of severe bilateral claudication not amendable to medical therapy. Hospital Course Hospital Course Patient underwent angiogram and angioplasty stenting of the right SFA. Patient tolerated procedure well without complications. She still has lesions that are significant in her left lower extremity. With her history of claudication in the bilateral lower extremities her left lower extremity will need procedure in 2 to 4 weeks. Patient will see us in the clinic in 1 to 2 weeks. She will continue aspirin and Plavix as Xarelto is not covered by her insurance. She has a good dopplerable posterior tibial pulse no dorsalis pedis pulse. Left lower extremity with 1+ monophasic DP and PT. Physical Exam Narrative: General: No apparent distress, healthy appearing, well nourished Neck: No carotid bruit bilaterally Muskuloskeletal: Full ROM Lymphatic: no lymphedema noted Respiratory: Normal respiratory effort, clear to auscultation bilaterally throughout all lung bray, no use of accessory muscles Cardio: No JVD, regular rate, regular rhythm, S1 S2 normal, no murmurs, 2+ radial palpated bilaterally GI: Normal to inspection, nondistended Extremities: Full range of motion no edema right lower extremity with no dorsalis pedis but 2+ posterior tibial left lower extremity 1+ monophasic DP and PT good 2-second capillary refill bilaterally with bilateral lower extremities warm Neuro: Alert and oriented x4, no focal motor deficits Psych: Affect normal, denies suicidal ideation, mental status grossly normal Skin: Left groin stick site clean dry intact soft no evidence of hematoma Discharge Data Studies Completed and Pending Pending at discharge Category Date Time Status MARINE INSULATOR request for service Routine Exams 06/20/24 06:00 Taken Laboratory Results WBC 9.71 10^3/uL (3.29-11.43) 06/21/24 03:36 RBC 3.96 10^6/uL (3.85-5.65) 06/21/24 03:36 Hgb 11.80 g/dL (11.27-16.99) 06/21/24 03:36 Hct 35.2 % (36-47) L 06/21/24 03:36 MCV 88.9 fl (85-98) 06/21/24 03:36 MCH 29.8 pg (27-33) 06/21/24 03:36 MCHC 33.5 g/dL (30-55) 06/21/24 03:36 RDW 13.7 % (12.1-15.1) 06/21/24 03:36 Plt Count 285 10^3/cmm (157-399) 06/21/24 03:36 MPV 8.3 fL (7.4-10.4) 06/21/24 03:36 Neut % (Auto) 78.5 % 06/21/24 03:36 Lymph % (Auto) 13.3 % 06/21/24 03:36 Kidder % (Auto) 7.2 % 06/21/24 03:36 Eos % (Auto) 0.0 % 06/21/24 03:36 Baso % (Auto) 0.8 % 06/21/24 03:36 Neut # (Auto) 7.62 10^3/uL (1.8-7.7) 06/21/24 03:36 Lymph # (Auto) 1.3 10^3/uL (0.8-4.8) 06/21/24 03:36 Kidder # (Auto) 0.7 10^3/uL (0.2-0.9) 06/21/24 03:36 Eos # (Auto) 0.0 10^3/uL (0.0-0.8) 06/21/24 03:36 Baso # (Auto) 0.1 10^3/uL (0.0-0.1) 06/21/24 03:36 Nucleated RBC % (auto) 0 % 06/21/24 03:36 Nucleated RBCs # 0.0 /100WBC 06/21/24 03:36 APTT 23.6 SECONDS (23.9-36.7) L D 06/20/24 17:35 Sodium 135 mmol/L (136-145) L 06/21/24 03:36 Potassium 3.7 mmol/L (3.5-5.1) 06/21/24 03:36 Chloride 99 mmol/L (98-107) 06/21/24 03:36 Carbon Dioxide 25 mmol/L (22-29) 06/21/24 03:36 Anion Gap 14.7 (5-19) 06/21/24 03:36 BUN 11 mg/dL (8-23) 06/21/24 03:36 Creatinine 0.5 mg/dL (0.5-0.9) 06/21/24 03:36 GFR Calculation Not Reportable 06/21/24 03:36 Glucose 192 mg/dL (65-115) H 06/21/24 03:36 Calculated Osmolality 285 mOsm/kg (285-295) 06/21/24 03:36 Calcium 8.4 mg/dL (8.5-10.5) L 06/21/24 03:36 Vitals Last Vital Signs Temp 98.7 F 06/21/24 07:24 Pulse 86 06/21/24 12:49 Resp 17 06/21/24 12:49 BP 172/63 06/21/24 12:49 Pulse Ox 91 06/21/24 12:49 O2 Del Method Room Air 06/21/24 07:24 O2 Flow Rate 2 06/20/24 17:48 Discharge Plan Discharge Patient Disposition: Home Condition: Stable Prescriptions: Continued cholecalciferol (vitamin D3) 25 mcg (1,000 unit) capsule 25 mcg PO QAM lorazepam 0.5 mg tablet 0.5 mg PO BEDTIME PRN (Reason: sleep) benazepril 40 mg tablet 40 mg PO QAM aspirin [Adult Aspirin Regimen] 81 mg tablet,delayed release (DR/EC) 81 mg PO BEDTIME albuterol sulfate [Ventolin HFA] 90 mcg/actuation HFA aerosol inhaler 2 puff INHALATION Q4H PRN (Reason: shortness of breath or wheezing) nitroglycerin [Nitrostat] 0.4 mg tablet, sublingual 0.4 mg SUBLINGUAL Q5M PRN (Reason: chest pain) Qty: 25 3RF Rx Instructions: do not exceed 3 doses per episode ipratropium-albuterol 0.5 mg-3 mg(2.5 mg base)/3 mL solution for nebulization 3 ml inhalation Q6H PRN (Reason: shortness of breath or wheezing) Qty: 360 3RF metoprolol tartrate 25 mg tablet 25 mg PO BID Qty: 180 3RF Breztri Aerosphere 160-9-4.8 mcg/actuation HFA aerosol inhaler 2 inh inhalation BID Qty: 10.7 6RF isosorbide mononitrate 30 mg tablet extended release 24 hr 30 mg PO DAILY Qty: 90 3RF simvastatin 40 mg tablet 40 mg PO BEDTIME Qty: 90 3RF paroxetine HCl 40 mg tablet 40 mg PO BEDTIME cyclobenzaprine 5 mg tablet 5 mg PO DAILY PRN (Reason: Muscle Spasm) Vitamin B-12 1 tab PO QAM clopidogrel 75 mg Tablet 75 mg PO DAILY Qty: 90 3RF hydrocodone-acetaminophen 10-325 mg tablet 1 - 2 tab PO .Q4-6H PRN (Reason: Pain) Held metformin 500 mg tablet extended release 24 hr 500 mg PO DAILY Hold Instructions: Resume on 06/24/24. Discharge Orders: Discharge Order (Routine); Ordered 06/21/24 Ordered By: Magda Gómez Referrals: Magda Gómez, INDUCTION MACHINE OPERATOR [Nurse Practitioner] - 07/02/24 2:00 pm (We have arranged a follow up appointment with Magda Gómez INDUCTION MACHINE OPERATOR with [facility] care services, If you are not able to keep this appointment please contact [facility] to arrange your follow up care.) Rosalina Henderson PA [Physician] - 06/29/24 10:40 am (We have arranged follow up care with your primary care providers office if you are not able to keep this appointment please call the clinic to arrange your care.) Discharge Diet: Advance as tolerated and Cardiac Discharge Activity: Resume usual activity and Limit activity as instructed Patient Instructions: Peripheral Vascular Stent Placement (DC), Peripheral Vascular Angioplasty (DC), Opioid Safety, Post Angiogram Home Care Instructions Activity Restrictions/Additional Instructions: Discussed with patient no heavy lifting more than a gallon of milk as well as going up or down steps for 3 days. No driving for 3 days. Monitor for and report signs or symptoms of bleeding. Monitor for and report s/s of infection such as fever 101 or greater, swelling, redness or pain to the groin. Plan of Treatment: Plan of treatment is continue dual antiplatelet therapy including aspirin and Plavix and follow-up with patient in the clinic from there in about 4 weeks perform intervention on the left lower extremity. Discharge Attestations Time Spent in Discharge Care*: less than 30 min Quality Metrics Clinical Quality Measures [ No reported AMI, CVA or VTE this stay] Coding Level of Care Code Acute Code for Chg Lala
== END 2024-06-21 13:05 | disposition home or self-care (01) ==
LOC: CSU 21:08
PROVIDERS: Admitting Provider Internal Medicine Cardiovascular Disease; PCP Family Medicine; Visit Provider Internal Medicine Cardiovascular Disease
DX: I70.211 Atherosclerosis of native arteries of extremities with intermittent claudication, right leg (principal); I70.92 Chronic total occlusion of artery of the extremities; I10 Essential (primary) hypertension; E78.5 Hyperlipidemia, unspecified; E66.9 Obesity, unspecified; Z68.27 Body mass index [BMI] 27.0-27.9, adult; I25.10 Atherosclerotic heart disease of native coronary artery without angina pectoris; J44.9 Chronic obstructive pulmonary disease, unspecified; F17.210 Nicotine dependence, cigarettes, uncomplicated
CPT/HCPCS: 36415; 37227; 37228; 37229; 75625; 75716; 80048; 85025; 85730; 96374; 96376; 99152; C1724; C1725; C1769; C1876; C1887; C1894; G0378; J1644; J2250; J2371; J2704; J3010; J3490; J7030; Q0163; Q9967

== ENCOUNTER → 2024-06-28 14:00 | Outpatient (BNVA) | payer MEDICARE, MEDICAID, SELFPAY | PROVIDERS: PCP Family Medicine; Visit Provider Nurse Practitioner Family | DX: I73.9 Peripheral vascular disease, unspecified (principal); E78.5 Hyperlipidemia, unspecified; I10 Essential (primary) hypertension; F17.210 Nicotine dependence, cigarettes, uncomplicated | CPT/HCPCS: 36415; 80048; 99214 ==

== ENCOUNTER 2024-07-30 13:45 | Observation (INO) | payer MEDICARE, MEDICAID, SELFPAY ==
[2024-07-30] VITALS (30 sets, daily range): BP systolic 136–184; BP diastolic 44–117; PULSE 64–103; RESP 13–27; TEMP 36.8–36.9; O2SAT 92–99; BMI 27.9
[2024-07-30 06:52] LABS: Basophils # 0.1 10^3/uL (0.0-0.1); Basophils % 0.9 %; Hematocrit 39.6 % (36-47); Lymphocytes % 22.2 %; Mean Corpuscular HGB Conc 34.1 g/dL (30-55); Mean Corpuscular Hemoglobin 30.1 pg (27-33); Mean Corpuscular Volume 88.2 fl (85-98); Mean Platelet Volume 8.3 fL (7.4-10.4); Monocytes # 0.6 10^3/uL (0.2-0.9); Neutrophils # 6.24 10^3/uL (1.8-7.7); Neutrophils % 69.6 %; Nucleated Red Blood Cells % 0 %; Platelet Count 388 10^3/cmm (157-399); Red Blood Count 4.49 10^6/uL (3.85-5.65); Red Cell Distribution Width 13.4 % (12.1-15.1); White Blood Count 8.97 10^3/uL (3.29-11.43)
[2024-07-30 07:04] LABS: Anion Gap 15.5 (5-19); Blood Urea Nitrogen 14 mg/dL (8-23); Calcium 9.3 mg/dL (8.5-10.5); Carbon Dioxide 29 mmol/L (22-29); Chloride 90 mmol/L (98-107); Glucose 116 mg/dL (65-115); Osmolality Calculated 271 mOsm/kg (285-295); Potassium 4.5 mmol/L (3.5-5.1); Sodium 130 mmol/L (136-145)
--- NOTE | 2024-07-30 09:34 | W.PM.OPSFHP ---
Same Day Surgery H&P Indication for Procedure/HPI DATE OF PROCEDURE: July 30, 2024 CHIEF COMPLAINT/INDICATIONFOR SURGICAL PROCEDURE: Lifestyle limiting claudication Staged PCI for severe peripheral vascular disease of the left leg under anesthesia 74-year-old female past medical history significant for lifestyle limiting claudication despite of optimization medicine and guideline medical therapy. Peripheral angiogram was suggestive of high-grade stenosis of left femoral and popliteal artery. It is the reason patient was brought in today for percutaneous intervention. She underwent percutaneous intervention of the right superficial femoral artery and popliteal artery on 20 June. Patient has been explained all risk-benefit and alternative for the procedure. She would like to proceed with it. Patient understand risk for thromboembolic phenomena amputation stroke major bleed. PREOP DIAGNOSIS: Lifestyle limiting claudication severe peripheral vascular disease PLANNED PROCEDURE: Peripheral angiogram/percutaneous intervention Operation Date: 07/30/24 07:00 Proposed Procedures p Peripheral Diagnostic - peripheral angio unilateral(Not Applicable) - Zen Fox MD As above Medications/Allergies* Home Medications Medication Instructions Recorded Confirmed Type albuterol sulfate 90 mcg/actuation 2 puff inhalation Q4H PRN 03/19/20 07/27/24 History aerosol inhaler (Ventolin HFA) shortness of breath or wheezing aspirin 81 mg tablet,delayed 81 mg PO BEDTIME 03/19/20 07/27/24 History release (Adult Aspirin Regimen) benazepril 40 mg tablet 40 mg PO QAM 03/19/20 07/27/24 History lorazepam 0.5 mg tablet 0.5 mg PO BEDTIME PRN sleep 03/19/20 07/27/24 History cholecalciferol (vitamin D3) 25 25 mcg PO QAM 12/31/20 07/27/24 History mcg (1,000 unit) capsule cyclobenzaprine 5 mg tablet 5 mg PO DAILY PRN Muscle Spasm 12/29/21 07/27/24 History paroxetine HCl 40 mg tablet 40 mg PO BEDTIME 12/29/21 07/27/24 History hydrocodone 10 mg-acetaminophen 1 - 2 tab PO .Q4-6H PRN Pain 06/21/24 07/27/24 History 325 mg tablet metformin 500 mg tablet,extended 500 mg PO DAILY 06/21/24 07/27/24 History release 24 hr Allergies/Adverse Reactions Allergy/AdvReac Type Severity Reaction Status Date / Time No Known Allergies Allergy Verified 07/30/24 06:52 Current Medications: Generic Name Dose Route Start Last Admin Trade Name Elizabet PRN Reason Stop Dose Admin Sodium Chloride 1,000 mls @ 50 mls/hr 07/30/24 06:00 07/30/24 06:49 Sodium Chloride 0.9% IV 07/31/24 01:59 Not Given .Q20H ONE Pertinent History/Comorbid Conditions* Medical History (Updated 06/22/24 @ 00:00 by EDGARDO Salas) Chest discomfort CAD (coronary artery disease) Mixed stress and urge urinary incontinence Recurrent UTI Insomnia Hx of colonic polyps Hx of gastroesophageal reflux (GERD) Hx of hyperparathyroidism Hx of irritable bowel syndrome Hx of anxiety disorder Hx of hyperlipidemia Peripheral arterial occlusive disease History of hypertension Hx of sleep apnea Encounter for screening for lung cancer History of COPD Surgical History (Updated 08/18/21 @ 13:49 by Елена Neil DO) Hx of tubal ligation Hx of carpal tunnel repair Hx of parathyroidectomy History of bilateral cataract extraction Hx of esophagogastroduodenoscopy Hx of colonoscopy Family History (Updated 02/05/22 @ 09:53 by Reginald Casanova) Father, in late 60s Mother, in late 60s Brain tumor Mother Diabetes Mother Encysted lung fluid Father Kidney stones Brother Cancer Mother Breast Social History Smoking and tobacco/nicotine status: current every day tobacco/nicotine user cigarettes Packs smoked per day: 0.5 Years cigarettes smoked: 40 Quit status (tobacco/nicotine): considering quitting Second hand smoke exposure: No Alcohol intake: current Alcohol intake frequency: holidays/special occasions only Substance/Drug Use: never Lives independently: Yes Household members: none Marital status: Current occupational status: retired Pets and animals: No Do you think of yourself as: Straight/Heterosexual Current gender identity: Female Pertinent Exam Findings alert, oriented x 3, clear to auscultation bilaterally, regular rate & rhythm, operative site marked and procedure specific exam findings Conscious Sedation Assessment PATIENT ASSESSED PRIOR TO SEDATION, WITH NO CHANGE NOTED: Yes AIRWAY EVAL/ANESTHESIA PLAN: ASA II, Risks, benefits & alternatives of sedation and/or procedure discussed and Patient agrees to continue as planned Recommendations Surgery/Procedure today Other Plans: Proceed with peripheral angiogram. Coding Level of Care Code Acute Code for Jo Ann Reeves
--- NOTE | 2024-07-30 10:13 | ANES.PREANE2 ---
Pre-Anesthetic Assessment Height/Weight: Height 5 ft 4 in Weight 163 lb Temp Pulse Resp BP O2 Del Method 98.2 F 66 16 175/88 Room Air 07/30/24 06:54 07/30/24 06:54 07/30/24 06:54 07/30/24 06:54 07/30/24 06:54 Preop Diagnosis: Lifestyle limiting claudication severe peripheral vascular disease Operation Date: 07/30/24 07:00 Proposed Procedures p Peripheral Diagnostic - peripheral angio unilateral(Not Applicable) - Zen Fox MD Was Beta Shan taken within 24 hours: Yes Was Clonidine taken within 24 hours: N/A Social Tobacco and No alcohol Exam alert, oriented x 3, clear to auscultation bilaterally and regular rate & rhythm Airway Submandibular: within normal limits Cervical ROM: within normal limits Mallampati: Class II Dentition: other (Edentulous) Anesthetic Plan ASA status: 3 Anesthesia: MAC Other: No prior issues with anesthesia NPO since yesterday Previously was called during prior catheterization procedure to help with anesthetic, MAC anesthesia performed and patient did well CAD with multiple heart stents. Most recent placed January 2024. On chronic Plavix. Taken this a.m. Hypertension on metoprolol and benazepril. Preop BP 175/88 History of COPD, current smoker Patient states that she is still able to perform ADLs Plan for MAC anesthetic Medications/Allergies Home Medications Medication Instructions Recorded Confirmed Last Taken Type albuterol sulfate 90 mcg/actuation 2 puff inhalation Q4H PRN 03/19/20 07/27/24 07/29/24 18:00 History aerosol inhaler (Ventolin HFA) shortness of breath or wheezing aspirin 81 mg tablet,delayed 81 mg PO BEDTIME 03/19/20 07/27/24 07/30/24 05:30 History release (Adult Aspirin Regimen) benazepril 40 mg tablet 40 mg PO QAM 03/19/20 07/27/24 07/29/24 18:00 History lorazepam 0.5 mg tablet 0.5 mg PO BEDTIME PRN sleep 03/19/20 07/27/24 06/19/24 19:30 History cholecalciferol (vitamin D3) 25 25 mcg PO QAM 12/31/20 07/27/24 07/29/24 18:00 History mcg (1,000 unit) capsule nitroglycerin 0.4 mg sublingual 0.4 mg sublingual Q5M PRN chest 09/03/21 07/27/24 Unknown Rx tablet (Nitrostat) pain #25 tabs cyclobenzaprine 5 mg tablet 5 mg PO DAILY PRN Muscle Spasm 12/29/21 07/27/24 06/19/24 19:30 History paroxetine HCl 40 mg tablet 40 mg PO BEDTIME 12/29/21 07/27/24 07/29/24 18:00 History ipratropium 0.5 mg-albuterol 3 mg 3 ml inhalation Q6H PRN shortness 09/07/22 07/27/24 07/29/24 18:00 Rx (2.5 mg base)/3 mL nebulization of breath or wheezing #360 mL soln metoprolol tartrate 25 mg tablet 25 mg PO BID #180 tabs 06/07/23 07/27/24 07/29/24 18:00 Rx budesonide 160 mcg-glycopyr 9 2 inh inhalation BID #10.7 grams 07/26/23 07/27/24 07/29/24 18:00 Rx mcg-formot 4.8 mcg/actuation HFA inhaler (Breztri Aerosphere) isosorbide mononitrate 30 mg 30 mg PO DAILY #90 tabs 09/12/23 07/27/24 07/29/24 18:00 Rx tablet,extended release 24 hr clopidogrel 75 mg tablet 75 mg PO DAILY #90 tabs 02/10/24 07/27/24 07/30/24 05:30 Rx simvastatin 40 mg tablet 40 mg PO BEDTIME #90 tabs 03/30/24 07/27/24 07/29/24 18:00 Rx hydrocodone 10 mg-acetaminophen 1 - 2 tab PO .Q4-6H PRN Pain 06/21/24 07/27/24 07/29/24 18:00 History 325 mg tablet metformin 500 mg tablet,extended 500 mg PO DAILY 06/21/24 07/27/24 07/29/24 History release 24 hr Allergies Allergy/AdvReac Type Severity Reaction Status Date / Time No Known Allergies Allergy Verified 07/30/24 06:52 Current Medications Generic Name Dose Route Start Last Admin Trade Name Freq PRN Reason Stop Dose Admin Sodium Chloride 1,000 mls @ 50 mls/hr 07/30/24 06:00 07/30/24 06:49 Sodium Chloride 0.9% IV 07/31/24 01:59 Not Given .Q20H ONE PFSH Anesthesia Medical History Chest discomfort CAD (coronary artery disease) Mixed stress and urge urinary incontinence Recurrent UTI Insomnia Hx of colonic polyps Hx of gastroesophageal reflux (GERD) Hx of hyperparathyroidism Hx of irritable bowel syndrome Hx of anxiety disorder Hx of hyperlipidemia Peripheral arterial occlusive disease History of hypertension Hx of sleep apnea Encounter for screening for lung cancer History of COPD Surgical History Hx of tubal ligation Hx of carpal tunnel repair Hx of parathyroidectomy History of bilateral cataract extraction Hx of esophagogastroduodenoscopy Hx of colonoscopy Family History Brother Kidney stones Mother , in late 60s Cancer Breast Diabetes Brain tumor Father , in late 60s Encysted lung fluid Social History Smoking and tobacco/nicotine status: current every day tobacco/nicotine user cigarettes Packs smoked per day: 0.5 Years cigarettes smoked: 40 Quit status (tobacco/nicotine): considering quitting Second hand smoke exposure: No Alcohol intake: current Alcohol intake frequency: holidays/special occasions only Substance/Drug Use: never Lives independently: Yes Household members: none Marital status: Current occupational status: retired Pets and animals: No Do you think of yourself as: Straight/Heterosexual Current gender identity: Female Data Anesthesia 07/30/24 06:35 07/30/24 06:35 Short CBC 07/30/24 Range/Units 06:35 WBC 8.97 (3.29-11.43) 10^3/uL Hgb 13.50 (11.27-16.99) g/dL Hct 39.6 (36-47) % MCV 88.2 (85-98) fl Plt Count 388 (157-399) 10^3/cmm Neut % (Auto) 69.6 % Neut # (Auto) 6.24 (1.8-7.7) 10^3/uL BMP 07/30/24 06:35 Sodium 130 L Potassium 4.5 Chloride 90 L Carbon Dioxide 29 BUN 14 Creatinine 0.6 Glucose 116 H Calcium 9.3 Cardiac Studies: Sestamibi Stress Test (Cardiology) 01/03/24
--- NOTE | 2024-07-30 12:15 | SUR.EXTENDED ---
Received the patient back from the laboratory worker via bed s/p peripheral angiogram with intervention. Patient drowsy but awakens easily to voice. A & 0 x 3. gambling monitor placed and vital signs obtained. 6 fr sheath intact to the right groin to pressure bag. No bleeding or hematoma noted. Dressing D & I. Left PT and DP pulses per doppler. No other assessment changes noted from pre cath assessment. Family at bedside. No concerns voiced at this time.
--- NOTE | 2024-07-30 12:40 | PM.PROC ---
Procedure Note: Procedure: Percutaneous intervention with CSI atherectomy balloon angioplasty and stent placement of left SFA ostial and atherectomy balloon angioplasty of popliteal tibioperoneal trunk and balloon angioplasty of anterior tibial artery. Excellent angiographic result with good flow was noted all the way to the left foot. Continue aspirin statin Check PTT in 3 hours if less than 45 discontinue sheath, bedrest for 5 hours Complications: None Coding Level of Care Code Acute Code for Chg Fwarnold
--- NOTE | 2024-07-30 12:45 | SUR.EXTENDED ---
Dr. Fox notfied in person about patients HTN. New orders received. See SEP.
[2024-07-30] MEDS: nitroglycerin 1 gm/inch oint Pkt 1 INCH TOPICAL (12:49)
[2024-07-30] MEDS: hyDRALAzine 20 mg/mL INJ 1 mL 10 MG IVP ×2 (12:55→17:58)
--- NOTE | 2024-07-30 13:45 | SUR.EXTENDED ---
Report called to CHRISTIANO García. Patient then transferred to ICU 6 via bed.
--- NOTE | 2024-07-30 13:52 | SUR.EXTENDED ---
The patients daughter, Rajiv, was notified via telephone at of the transfer to ICU 6.
[2024-07-30] MEDS: sodium chloride 0.9% 1,000 ML 100 ML IV (14:48)
[2024-07-30 15:21] LABS: Partial Thromboplastin Time 53.4 SECONDS (23.9-36.7)
[2024-07-30 17:05] LABS: Partial Thromboplastin Time 25.6 SECONDS (23.9-36.7)
--- NOTE | 2024-07-30 18:28 | PC.NURSE ---
Sheath pulled at 1805. Manual pressure held 20 mins, no bleeding or s/s of hematoma.
[2024-07-30] MEDS: HYDROcodone-acetaminophen 5-325 mg Tablet 1 TAB PO ×2 (19:11→23:08)
[2024-07-30] MEDS: ALPRAZolam 0.5 mg Tablet 0.25 MG PO (22:13)
[2024-07-31] VITALS (14 sets, daily range): BP systolic 144–186; BP diastolic 47–69; PULSE 81–112; RESP 14–22; TEMP 37.1; O2SAT 90–95
[2024-07-31] MEDS: HYDROcodone-acetaminophen 5-325 mg Tablet 1 TAB PO ×2 (03:10→08:18)
[2024-07-31 04:26] LABS: Basophils # 0.1 10^3/uL (0.0-0.1); Basophils % 0.7 %; Hematocrit 36.7 % (36-47); Lymphocytes # 1.5 10^3/uL (0.8-4.8); Lymphocytes % 16.7 %; Mean Corpuscular HGB Conc 33.5 g/dL (30-55); Mean Corpuscular Hemoglobin 29.9 pg (27-33); Mean Corpuscular Volume 89.1 fl (85-98); Mean Platelet Volume 8.8 fL (7.4-10.4); Monocytes # 0.7 10^3/uL (0.2-0.9); Monocytes % 7.9 %; Neutrophils # 6.57 10^3/uL (1.8-7.7); Neutrophils % 74.4 %; Nucleated Red Blood Cells % 0 %; Platelet Count 349 10^3/cmm (157-399); Red Blood Count 4.12 10^6/uL (3.85-5.65); Red Cell Distribution Width 13.8 % (12.1-15.1); White Blood Count 8.84 10^3/uL (3.29-11.43)
[2024-07-31 04:55] LABS: Anion Gap 13.7 (5-19); Blood Urea Nitrogen 9 mg/dL (8-23); Calcium 8.6 mg/dL (8.5-10.5); Carbon Dioxide 25 mmol/L (22-29); Chloride 97 mmol/L (98-107); Glucose 105 mg/dL (65-115); Osmolality Calculated 273 mOsm/kg (285-295); Potassium 3.7 mmol/L (3.5-5.1); Sodium 132 mmol/L (136-145)
[2024-07-31] MEDS: hyDRALAzine 20 mg/mL INJ 1 mL 10 MG IVP (08:16)
[2024-07-31] MEDS: clopidogrel 75 mg Tablet PO (08:18)
--- NOTE | 2024-07-31 09:05 | P.DS_ITS ---
Discharge Providers Date of Admission: 07/30/24 13:45 Date of Discharge: July 31, 2024 Attending Provider at Admission: Zen Fox MD Attending Provider at Discharge: Zen Fox MD Primary Care Provider: Cezar Lorenz MD Reason for Visit Reason for Visit: I73.9 Brief History: 74-year-old female past medical history significant for lifestyle limiting claudication despite of optimization medicine and guideline medical therapy. Peripheral angiogram was suggestive of high-grade stenosis of left femoral and popliteal artery. It is the reason patient was brought in today for percutaneous intervention. She underwent percutaneous intervention of the right superficial femoral artery and popliteal artery on 20 June. Patient has been explained all risk-benefit and alternative for the procedure. She would like to proceed with it. Patient understand risk for thromboembolic phenomena amputation stroke major bleed. Hospital Course Hospital Course She underwent percutaneous intervention with CSI atherectomy balloon angioplasty and stent placement of left SFA ostial and atherectomy balloon angioplasty of popliteal tibioperoneal trunk and balloon angioplasty of anterior tibial artery. She had some oozing overnight at the right femoral groin site, sandbag was placed. This morning she has been ambulating and sitting up in the chair for breakfast without any bleeding at the right groin. No pain in the left foot, pulses palpable. Will discharge home today, follow up in Physical Exam Const: COMMON NORMALS: no acute distress and patient oriented x3 GENERAL APPEARANCE: cooperative ORIENTATION/CONSCIOUSNESS: Yes awake, Yes oriented to person, Yes oriented to place and Yes oriented to time Chest: COMMONS NORMALS: normal inspection of the chest and normal palpation of entire chest wall CHEST: Yes Symmetrical chest wall rise Resp: COMMON NORMALS: normal respiratory effort, No retractions, No use of accessory muscles and clear to auscultation bilaterally AUSCULTATION: clear to auscultation bilaterally and wheezes throughout Cardio: COMMON NORMALS: regular rate, regular rhythm, S1 normal heart sound present, S2 normal heart sound present, No gallops present (Cardio), No clicks present (Cardio), No murmurs present (Cardio) and No rub (Cardio) RATE: regular rate RHYTHM: regular rhythm HEART SOUNDS: S1 normal heart sound present and S2 normal heart sound present PERIPHERAL PULSES: radial pulses present positive right 2+ and femoral pulses present positive right 2+ Neuro: COMMON NORMALS: patient oriented x3 and moves all extremities SENSORIUM/ORIENTATION: Yes oriented to person, Yes oriented to place and Yes oriented to time Skin: WOUNDS: Yes surgical site (no hematoma palpable) Details: no odor Discharge Data Studies Completed and Pending Pending at discharge Category Date Time 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 Routine Exams 07/30/24 06:00 Taken Laboratory Results WBC 8.84 10^3/uL (3.29-11.43) 07/31/24 03:14 RBC 4.12 10^6/uL (3.85-5.65) 07/31/24 03:14 Hgb 12.30 g/dL (11.27-16.99) 07/31/24 03:14 Hct 36.7 % (36-47) 07/31/24 03:14 MCV 89.1 fl (85-98) 07/31/24 03:14 MCH 29.9 pg (27-33) 07/31/24 03:14 MCHC 33.5 g/dL (30-55) 07/31/24 03:14 RDW 13.8 % (12.1-15.1) 07/31/24 03:14 Plt Count 349 10^3/cmm (157-399) 07/31/24 03:14 MPV 8.8 fL (7.4-10.4) 07/31/24 03:14 Neut % (Auto) 74.4 % 07/31/24 03:14 Lymph % (Auto) 16.7 % 07/31/24 03:14 [place] % (Auto) 7.9 % 07/31/24 03:14 Eos % (Auto) 0.0 % 07/31/24 03:14 Baso % (Auto) 0.7 % 07/31/24 03:14 Neut # (Auto) 6.57 10^3/uL (1.8-7.7) 07/31/24 03:14 Lymph # (Auto) 1.5 10^3/uL (0.8-4.8) 07/31/24 03:14 [place] # (Auto) 0.7 10^3/uL (0.2-0.9) 07/31/24 03:14 Eos # (Auto) 0.0 10^3/uL (0.0-0.8) 07/31/24 03:14 Baso # (Auto) 0.1 10^3/uL (0.0-0.1) 07/31/24 03:14 Nucleated RBC % (auto) 0 % 07/31/24 03:14 Nucleated RBCs # 0.0 /100WBC 07/31/24 03:14 APTT 25.6 SECONDS (23.9-36.7) D 07/30/24 16:41 Sodium 132 mmol/L (136-145) L 07/31/24 03:14 Potassium 3.7 mmol/L (3.5-5.1) 07/31/24 03:14 Chloride 97 mmol/L (98-107) L 07/31/24 03:14 Carbon Dioxide 25 mmol/L (22-29) 07/31/24 03:14 Anion Gap 13.7 (5-19) 07/31/24 03:14 BUN 9 mg/dL (8-23) 07/31/24 03:14 Creatinine 0.5 mg/dL (0.5-0.9) 07/31/24 03:14 GFR Calculation Not Reportable 07/31/24 03:14 Glucose 105 mg/dL (65-115) 07/31/24 03:14 Calculated Osmolality 273 mOsm/kg (285-295) L 07/31/24 03:14 Calcium 8.6 mg/dL (8.5-10.5) 07/31/24 03:14 Vitals Last Vital Signs Temp 98.5 F 07/30/24 20:00 Pulse 88 07/31/24 05:57 Resp 22 H 07/30/24 21:00 BP 136/67 07/30/24 21:00 Pulse Ox 93 07/30/24 21:00 O2 Del Method Room Air 07/30/24 21:00 O2 Flow Rate 2 07/30/24 13:15 Discharge Plan Discharge Patient Disposition: Home Condition: Stable Prescriptions: Continued cholecalciferol (vitamin D3) 25 mcg (1,000 unit) capsule 25 mcg PO QAM lorazepam 0.5 mg tablet 0.5 mg PO BEDTIME PRN (Reason: sleep) benazepril 40 mg tablet 40 mg PO QAM aspirin [Adult Aspirin Regimen] 81 mg tablet,delayed release (DR/EC) 81 mg PO BEDTIME albuterol sulfate [Ventolin HFA] 90 mcg/actuation HFA aerosol inhaler 2 puff INHALATION Q4H PRN (Reason: shortness of breath or wheezing) nitroglycerin [Nitrostat] 0.4 mg tablet, sublingual 0.4 mg SUBLINGUAL Q5M PRN (Reason: chest pain) Qty: 25 3RF Rx Instructions: do not exceed 3 doses per episode ipratropium-albuterol 0.5 mg-3 mg(2.5 mg base)/3 mL solution for nebulization 3 ml inhalation Q6H PRN (Reason: shortness of breath or wheezing) Qty: 360 3RF metoprolol tartrate 25 mg tablet 25 mg PO BID Qty: 180 3RF Breztri Aerosphere 160-9-4.8 mcg/actuation HFA aerosol inhaler 2 inh inhalation BID Qty: 10.7 6RF isosorbide mononitrate 30 mg tablet extended release 24 hr 30 mg PO DAILY Qty: 90 3RF simvastatin 40 mg tablet 40 mg PO BEDTIME Qty: 90 3RF paroxetine HCl 40 mg tablet 40 mg PO BEDTIME cyclobenzaprine 5 mg tablet 5 mg PO DAILY PRN (Reason: Muscle Spasm) clopidogrel 75 mg Tablet 75 mg PO DAILY Qty: 90 3RF hydrocodone-acetaminophen 10-325 mg tablet 1 - 2 tab PO .Q4-6H PRN (Reason: Pain) Held metformin 500 mg tablet extended release 24 hr 500 mg PO DAILY Hold Instructions: Resume on 06/24/24. Discharge Orders: Discharge Order (Routine); Ordered 07/31/24 Ordered By: Tasneem Fox Referrals: Magda Gómez NP [Nurse Practitioner] - 08/09/24 1:00 pm Discharge Diet: Cardiac and Diabetic Discharge Activity: Increase activity as tolerated Patient Instructions: Carpal Tunnel Syndrome, Coronary Artery Disease (DC), Heart Healthy Diet (DC), Peripheral Vascular Stent Placement (DC), Meal Planning with Diabetes Exchanges (DC), Peripheral Artery Disease (DC), Peripheral Vascular Angioplasty (DC), Opioid Safety, Post Angiogram Home Care Instructions Activity Restrictions/Additional Instructions: No lifting over 5 pounds for the next 2 days. Discharge Date/Time: 07/31/24 10:07 Discharge Attestations Time Spent in Discharge Care*: less than 30 min Quality Metrics Clinical Quality Measures [ No reported AMI, CVA or VTE this stay] Coding Level of Care Code Acute Code for Chg Fwd
--- NOTE | 2024-07-31 09:26 | PC.NURSE ---
Patient received discharge orders, all IVs removed. No new prescriptions at this time. Follow up appointments being made currently. Went over all discharge education and activity restrictions. No new questions, patient verbalized understanding.
--- NOTE | 2024-07-31 10:09 | PC.NURSE ---
Patient taken via w/c to surgical service exit. Helped into daughters car. at 1007
== END 2024-07-31 10:07 | disposition home or self-care (01) ==
LOC: ICU 13:49
PROVIDERS: Admitting Provider Internal Medicine Cardiovascular Disease; PCP Family Medicine; Visit Provider Internal Medicine Cardiovascular Disease
DX: I73.9 Peripheral vascular disease, unspecified (principal); I25.10 Atherosclerotic heart disease of native coronary artery without angina pectoris; Z95.5 Presence of coronary angioplasty implant and graft; Z79.02 Long term (current) use of antithrombotics/antiplatelets; I10 Essential (primary) hypertension; J44.9 Chronic obstructive pulmonary disease, unspecified; E78.5 Hyperlipidemia, unspecified; G47.30 Sleep apnea, unspecified; F17.210 Nicotine dependence, cigarettes, uncomplicated; Z79.82 Long term (current) use of aspirin
CPT/HCPCS: 12345; 36415; 37227; 37228; 75710; 80048; 85025; 85347; 85730; 94640; 96374; 96376; C1724; C1725; C1769; C1876; C1887; C1894; G0378; J0360; J1200; J1644; J2250; J2704; J3010; J3490; J7030; Q0163; Q9967

== ENCOUNTER → 2024-08-09 12:50 | Outpatient (BNVA) | payer MEDICARE, MEDICAID, SELFPAY | PROVIDERS: PCP Family Medicine; Visit Provider Nurse Practitioner Family | DX: Z09 Encounter for follow-up examination after completed treatment for conditions other than malignant neoplasm (principal); R09.89 Other specified symptoms and signs involving the circulatory and respiratory systems; Z86.39 Personal history of other endocrine, nutritional and metabolic disease; Z86.79 Personal history of other diseases of the circulatory system; I73.9 Peripheral vascular disease, unspecified | CPT/HCPCS: 36415; 80048; 85025; 99213 ==

== ENCOUNTER 2024-08-15 10:15 | Outpatient (CLI) | payer MEDICARE, MEDICAID, SELFPAY ==
--- NOTE | 2024-08-15 10:15 | USCV_ITS ---
Eula Walter Age: 74 Gender: F : 1950 Exam Date: 08/15/2024 10:29 Ordering Phys: Magda Gómez NP Technologist: CT Exam Location: [facility] [place] Indication: Risk Factors: Previous Vascular Surgery: Right Brachial BP: / Left Brachial BP: / Right Left Velocity (cm/s) Spectral Plaque Velocity (cm/s) Spectral Plaque Syst/Diast Broadening Syst/Diast Broadening 83.90/ 13.40 Prox CCA 70.50 / 12.90 92.80/ 10.60 Mid CCA 89.10 / 11.20 66.00/ 10.40 Distal CCA 64.60 / 12.10 99.40/ 8.70 Prox ICA 106.90/ 21.60 80.40/ 16.50 Mid ICA 77.70 / 14.80 39.60/ 13.60 Distal ICA 69.10 / 14.40 319.50 ECA 215.40 1.50 ICA/CCA 1.70 Occluded Vertebral Antegrade / cm/s 39.40/ 8.80 cm/s Bi Subclavian Bi 125.7 66.80 0 FINDINGS occluded Right vertebral artery CONCLUSIONS Right ICA stenosis <50%. Moderate calcified atheromatous plaque right carotid bulb/ICA. Left ICA stenosis <50%. Moderate calcified atheromatous plaque left carotid bulb/ICA. Intimal thickening in the common carotid arteries and internal carotid arteries bilaterally.Scattered calcified plaque in both CCAs Moderate stenosis Right greater than Left ECA Right vertebral artery no flow probably occluded Normal antegrade Doppler flow noted in the left vertebral artery. Karson Peace MD (Electronically Signed) Final Date: 15 August 2024 12:25 Amended: 15 August 2024 17:14 C
== END 2024-08-15 10:22 | disposition home or self-care (01) ==
PROVIDERS: PCP Family Medicine; Visit Provider Nurse Practitioner Family
DX: R09.89 Other specified symptoms and signs involving the circulatory and respiratory systems (principal); I65.23 Occlusion and stenosis of bilateral carotid arteries; R93.89 Abnormal findings on diagnostic imaging of other specified body structures; I65.01 Occlusion and stenosis of right vertebral artery
CPT/HCPCS: 93880

== ENCOUNTER → 2024-09-07 08:40 | Outpatient (BNVA) | payer MEDICARE, MEDICAID, SELFPAY | PROVIDERS: PCP Family Medicine; Visit Provider Nurse Practitioner Family | DX: I73.9 Peripheral vascular disease, unspecified (principal); I25.10 Atherosclerotic heart disease of native coronary artery without angina pectoris; I65.29 Occlusion and stenosis of unspecified carotid artery; F17.210 Nicotine dependence, cigarettes, uncomplicated; I10 Essential (primary) hypertension | CPT/HCPCS: 99214 ==

== ENCOUNTER 2024-10-16 12:39 | Emergency (ER) | payer MEDICARE, MEDICAID, SELFPAY ==
[2024-10-16 12:58] VITALS: BP 146/65; PULSE 78; RESP 16; TEMP 36.7; O2SAT 95; BMI 27.6
--- NOTE | 2024-10-16 13:43 | W.ED.EXTPRO ---
HPI - Extremity Problem General: Chief complaint: Extremity Problem,Nontraumatic Stated complaint: RT leg swollen Time Seen by Provider: 10/16/24 13:26 Source: patient Mode of arrival: ambulatory Limitations: no limitations History of Present Illness: Patient is a 74-year-old female with history of severe peripheral arterial disease who presents today with complaint of right foot redness/pain for the past 2 days. Patient reportedly went to [facility] and they sent here as they could not palpate DP/PT pulses. Patient does have a history of stents in the bilateral lower extremities-placed by Dr. Fox here at [facility]. She continues to smoke. MD Complaint: extremity pain Onset (ago): day(s) Pain Consistency: intermittent Location: right and lower extremity Quality: dull Radiation: none Relieving factors: nothing Exacerbating factors: nothing Associated symptoms: Reports no associated symptoms; Deny chest pain or fever(s) Related Data Home Medications ?Medication ?Instructions ?Recorded ?Confirmed albuterol sulfate 90 mcg/actuation 2 puff inhalation Q4H PRN 03/19/20 10/16/24 aerosol inhaler (Ventolin HFA) shortness of breath or wheezing aspirin 81 mg tablet,delayed 81 mg PO BEDTIME 03/19/20 10/16/24 release (Adult Aspirin Regimen) benazepril 40 mg tablet 40 mg PO QAM 03/19/20 10/16/24 lorazepam 0.5 mg tablet 0.5 mg PO BEDTIME PRN sleep 03/19/20 10/16/24 cholecalciferol (vitamin D3) 25 25 mcg PO QAM 12/31/20 10/16/24 mcg (1,000 unit) capsule cyclobenzaprine 5 mg tablet 5 mg PO DAILY PRN Muscle Spasm 12/29/21 10/16/24 paroxetine HCl 40 mg tablet 40 mg PO BEDTIME 12/29/21 10/16/24 hydrocodone 10 mg-acetaminophen 1 - 2 tab PO .Q4-6H PRN Pain 06/21/24 10/16/24 325 mg tablet metformin 500 mg tablet,extended 500 mg PO DAILY 06/21/24 10/16/24 release 24 hr Held on 07/31/24. Instructions: Resume on 08/03/24. apremilast 30 mg tablet (Otezla) 30 mg PO DAILY 10/16/24 10/16/24 hydrochlorothiazide 25 mg tablet 25 mg PO DAILY 10/16/24 10/16/24 Previous Rx's ?Medication ?Instructions ?Recorded nitroglycerin 0.4 mg sublingual 0.4 mg sublingual Q5M PRN chest 09/03/21 tablet (Nitrostat) pain #25 tabs ipratropium 0.5 mg-albuterol 3 mg 3 ml inhalation Q6H PRN shortness 09/07/22 (2.5 mg base)/3 mL nebulization of breath or wheezing #360 mL soln metoprolol tartrate 25 mg tablet 25 mg PO BID #180 tabs 06/07/23 budesonide 160 mcg-glycopyr 9 2 inh inhalation BID #10.7 grams 07/26/23 mcg-formot 4.8 mcg/actuation HFA inhaler (Breztri Aerosphere) isosorbide mononitrate 30 mg 30 mg PO DAILY #90 tabs 09/12/23 tablet,extended release 24 hr clopidogrel 75 mg tablet 75 mg PO DAILY #90 tabs 02/10/24 simvastatin 40 mg tablet 40 mg PO BEDTIME #90 tabs 03/30/24 Allergies Allergy/AdvReac Type Severity Reaction Status Date / Time No Known Allergies Allergy Verified 09/07/24 08:52 Review of Systems Const: Denies: fever(s), chills, body aches, fatigue or malaise Card: Denies: chest pain Resp: Denies: dyspnea Musc: Reports: extremity pain; Denies: extremity swelling, joint pain, joint swelling or joint redness Skin/Breast: Reports: erythema (dorsal R foot) Neuro: Denies: numbness in extremities, weakness in extremities, sensory changes or difficulty walking PFSH ED PFSH: Medical History Chest discomfort CAD (coronary artery disease) Mixed stress and urge urinary incontinence Recurrent UTI Insomnia Hx of colonic polyps Hx of gastroesophageal reflux (GERD) Hx of hyperparathyroidism Hx of irritable bowel syndrome Hx of anxiety disorder Hx of hyperlipidemia Peripheral arterial occlusive disease History of hypertension Hx of sleep apnea Encounter for screening for lung cancer History of COPD Surgical History Hx of tubal ligation Hx of carpal tunnel repair Hx of parathyroidectomy History of bilateral cataract extraction Hx of esophagogastroduodenoscopy Hx of colonoscopy Family History Brother Kidney stones Mother , in late 60s Cancer Breast Diabetes Brain tumor Father , in late 60s Encysted lung fluid Social History Smoking and tobacco/nicotine status: current some day tobacco/nicotine user cigarettes Packs smoked per day: 0.5 Years cigarettes smoked: 40 Quit status (tobacco/nicotine): considering quitting Second hand smoke exposure: No Alcohol intake: current Alcohol intake frequency: holidays/special occasions only Substance/Drug Use: never Lives independently: Yes Household members: none Marital status: Current occupational status: retired Pets and animals: No Do you think of yourself as: Straight/Heterosexual Current gender identity: Female Physical Exam Const: COMMON NORMALS: no acute distress, average body habitus, no limitations, healthy appearing, alert and well nourished Resp: COMMON NORMALS: normal respiratory effort and clear to auscultation bilaterally AUSCULTATION: clear to auscultation bilaterally Cardio: COMMON NORMALS: regular rate and regular rhythm RATE: regular rate RHYTHM: regular rhythm Extremity: COMMON NORMALS: capillary refill normal, no joint enlargement, no calf tenderness and no pedal edema GENERAL: Yes normal exam except as noted RIGHT LOWER EXTREMITY: Yes foot & digits OTHER: mild erythema (not warm to the touch) dorsal R foot; this is more consistent with dependent rubor and completely resolves with elevation she has bilateral feet that are cool to the touch but both lower extremities are warm; pulses are not palpable most likely due to her known severe PAD; cap refill was not significantly delayed; sensation reportedly normal Neuro: COMMON NORMALS: moves all extremities, no focal motor deficits and no sensory deficits noted SENSORIUM/ORIENTATION: Yes alert Course Vital Signs: Vital signs: Vital Signs Temperature 98.0 F 10/16/24 12:58 Pulse Rate 78 10/16/24 12:58 Respiratory Rate 16 10/16/24 12:58 Blood Pressure 146/65 10/16/24 12:58 Pulse Oximetry 95 10/16/24 12:58 Oxygen Delivery Me thod Room Air 10/16/24 12:58 MDM - Extremity (Nontraumatic) Medical Decision Making Patient here for redness and pain to her right foot. Redness completely ablates with leg elevation consistent with dependent rubor. Arterial ultrasound obtained here and she does have monophasic flow throughout her right lower extremity. Will have her follow-up with Dr. Fox who is done all of her previous arterial stenting procedures. Smoking cessation was discussed with her during my initial examination. Medical Records I reviewed the patient's medical records. XR interpretation done by ED provider, pending radiology final review (monophasic flow throughout per [place], US tech) Discharge Plan Discharge Patient Disposition: Home Clinical Impression: Peripheral arterial disease Condition: Stable Prescriptions: No Action cholecalciferol (vitamin D3) 25 mcg (1,000 unit) capsule 25 mcg PO QAM lorazepam 0.5 mg tablet 0.5 mg PO BEDTIME PRN (Reason: sleep) benazepril 40 mg tablet 40 mg PO QAM aspirin [Adult Aspirin Regimen] 81 mg tablet,delayed release (DR/EC) 81 mg PO BEDTIME albuterol sulfate [Ventolin HFA] 90 mcg/actuation HFA aerosol inhaler 2 puff INHALATION Q4H PRN (Reason: shortness of breath or wheezing) nitroglycerin [Nitrostat] 0.4 mg tablet, sublingual 0.4 mg SUBLINGUAL Q5M PRN (Reason: chest pain) Qty: 25 3RF Rx Instructions: do not exceed 3 doses per episode ipratropium-albuterol 0.5 mg-3 mg(2.5 mg base)/3 mL solution for nebulization 3 ml inhalation Q6H PRN (Reason: shortness of breath or wheezing) Qty: 360 3RF metoprolol tartrate 25 mg tablet 25 mg PO BID Qty: 180 3RF Breztri Aerosphere 160-9-4.8 mcg/actuation HFA aerosol inhaler 2 inh inhalation BID Qty: 10.7 6RF isosorbide mononitrate 30 mg tablet extended release 24 hr 30 mg PO DAILY Qty: 90 3RF simvastatin 40 mg tablet 40 mg PO BEDTIME Qty: 90 3RF paroxetine HCl 40 mg tablet 40 mg PO BEDTIME cyclobenzaprine 5 mg tablet 5 mg PO DAILY PRN (Reason: Muscle Spasm) clopidogrel 75 mg Tablet 75 mg PO DAILY Qty: 90 3RF hydrocodone-acetaminophen 10-325 mg tablet 1 - 2 tab PO .Q4-6H PRN (Reason: Pain) metformin 500 mg tablet extended release 24 hr 500 mg PO DAILY hydrochlorothiazide 25 mg tablet 25 mg PO DAILY Otezla 30 mg tablet 30 mg PO DAILY Discharge Orders: Discharge ED (Routine); Ordered 10/16/24 Ordered By: Magda Dugan Referrals: Cezar Lorenz MD [Primary Care Provider] - Patient Instructions: Peripheral Artery Disease (ED) Activity Restrictions/Additional Instructions: As we discussed, ultrasound was able to verify flow to your right lower extremity. Will have you follow-up with your surgeon, Dr. Fox who performed your previous arterial stents. Print Language: [place] Coding Level of Care Code ED Orthopedic Physician for Jo Ann Reeves
--- NOTE | 2024-10-16 14:01 | USR_ITS ---
PROCEDURE INFORMATION: Exam: US Duplex Right Lower Extremity Arteries Or Arterial Bypass Grafts Exam date and time: 10/16/2024 2:44 PM Age: 74 years old Clinical indication: Pain; Leg, lower; Right; Additional info: Pain, redness, difficult to find pulses TECHNIQUE: Imaging protocol: Right Real-time duplex scan of the arteries or arterial bypass grafts of the right lower extremity with 2-D salcedo scale, color Doppler flow and spectral waveform analysis. Images documented and saved. COMPARISON: CT angio abd aorta runof [id number] 03/30/2024 1:00 PM FINDINGS: Right common femoral artery: No occlusion or significant stenosis. Normal waveform. No pseudoaneurysm in the inguinal region. Right superficial femoral artery: Doppler waveforms become monophasic in the proximal thigh. Right popliteal artery: Monophasic Doppler waveforms. Right calf/foot arteries: Monophasic Doppler waveforms. Soft tissues: No hematoma or collection. Other findings: Pressure measurements given MAGDA of 0.25. US/[place] [id number] IMPRESSION: There is evidence of significant right femoral artery disease. MAGDA 0.25.
[2024-10-16 15:16] VITALS: BP 160/59; PULSE 72; RESP 16; O2SAT 95
--- NOTE | 2024-10-17 09:36 | DCPLANNER ---
Referral sent to [facility]: Patient is a 74-year-old female with history of severe peripheral arterial disease who presents today with complaint of right foot redness/pain for the past 2 days. Patient reportedly went to [facility] and they sent here as they could not palpate DP/PT pulses. Will have her follow-up with Dr. Fox who is done all of her previous arterial stenting procedures.
== END 2024-10-16 15:14 | disposition home or self-care (01) ==
PROVIDERS: Emergency Provider Physician Assistant; PCP Family Medicine
DX: I73.9 Peripheral vascular disease, unspecified (principal); Z79.82 Long term (current) use of aspirin; Z79.02 Long term (current) use of antithrombotics/antiplatelets; F17.210 Nicotine dependence, cigarettes, uncomplicated; J44.9 Chronic obstructive pulmonary disease, unspecified; E78.5 Hyperlipidemia, unspecified; I25.10 Atherosclerotic heart disease of native coronary artery without angina pectoris
CPT/HCPCS: 93926; 99284

== ENCOUNTER 2024-10-17 20:23 | Emergency (ER) | payer MEDICARE, MEDICAID, SELFPAY ==
[2024-10-17] VITALS (7 sets, daily range): BP systolic 131; BP diastolic 50; PULSE 52–67; RESP 18–20; O2SAT 89–97
--- NOTE | 2024-10-17 20:32 | XRR_ITS ---
PROCEDURE INFORMATION: Exam: XR Right Forearm Exam date and time: 10/17/2024 8:51 PM Age: 74 years old Clinical indication: Injury or trauma; Fall; Blunt trauma (contusions or hematomas); Arm, lower; Right; Additional info: Fall, severe pain TECHNIQUE: Imaging protocol: Radiologic exam of the right forearm. Views: 2 views. COMPARISON: No relevant prior studies available. FINDINGS: Bones/joints: No definite acute fracture. No dislocation. Calcific densities at the insertion of the triceps tendon may relate to some calcific tendinitis. Soft tissues: Normal. XR/XR forearm RT 2V [id number] IMPRESSION: As above.
--- NOTE | 2024-10-17 20:32 | XRR_ITS ---
PROCEDURE INFORMATION: Exam: XR Right Humerus Exam date and time: 10/17/2024 8:51 PM Age: 74 years old Clinical indication: Injury or trauma; Fall; Blunt trauma (contusions or hematomas); Arm, upper; Right; Additional info: Fall/upper arm pain + swelling TECHNIQUE: Imaging protocol: Radiologic exam of the right humerus. Views: 2 or more views. COMPARISON: No relevant prior studies available. FINDINGS: Bones/joints: Angulated and oblique comminuted fracture through the proximal diaphysis of the humerus with lateral apex angulation. No dislocation. Soft tissues: Overlying soft tissue swelling. XR/[place] [id number] IMPRESSION: As above.
--- NOTE | 2024-10-17 20:34 | ED_ITS ---
HPI - Extremity Problem General: Chief complaint: Extremity Injury, Upper Stated complaint: fall, r arm pain Time Seen by Provider: 10/17/24 20:24 Source: patient Mode of arrival: ambulatory Limitations: no limitations History of Present Illness: Patient is a 74-year-old female who is brought into the emergency department by ambulance for a fall she suffered just prior to arrival. Patient states she was just clumsy and fell over and denies any symptoms prior to falling such as any chest pain or dizziness. States that she fell directly onto her right upper extremity, and any movement at both the shoulder or elbow causes severe 10/10 pain. There is questionable deformity of both the right upper and right forearm. Still has good strength and sensations in her hand distally. Denies hitting her head or losing consciousness. Pain improved with rest and states if she holds it still it is not painful to her. No other injuries reported. Vitals within normal limits at this time. MD Complaint: extremity pain Onset (ago): minute(s) Pain Consistency: constant Location: right and upper extremity Severity scale (1-10): 10 Radiation: distal Relieving factors: rest Exacerbating factors: range of motion Associated symptoms: Deny chest pain, fever(s) or rash Related Data Home Medications ?Medication ?Instructions ?Recorded ?Confirmed albuterol sulfate 90 mcg/actuation 2 puff inhalation Q 4H PRN 03/19/20 10/16/24 aerosol inhaler (Ventolin HFA) shortness of breath or wheezing aspirin 81 mg tablet,delayed 81 mg PO BEDTIME 03/19/20 10/16/24 release (Adult Aspirin Regimen) benazepril 40 mg tablet 40 mg PO QAM 03/19/20 lorazepam 0.5 mg tablet 0.5 mg PO BEDTIME PRN sleep 03/19/20 10/16/24 cholecalciferol (vitamin D3) 25 25 mcg PO QAM 12/31/20 10/16/24 mcg (1,000 unit) capsule cyclobenzaprine 5 mg tablet 5 mg PO DAILY PRN Muscle S pasm 12/29/21 10/16/24 paroxetine HCl 40 mg tablet 40 mg PO BEDTIME 12/29/21 10/16/24 hydrocodone 10 mg-acetaminophen 1 - 2 tab PO .Q4-6H [place] N Pain 06/21/24 10/16/24 325 mg tablet metformin 500 mg tablet,extended 500 mg PO DAILY 06/2110/16/24 release 24 hr Held on 07/31/24. Instructions: Resume on 08/03/24. apremilast 30 mg tablet (Otezla) 30 mg PO DAILY 10/16/24 hydrochlorothiazide 25 mg tablet 25 mg PO DAILY 10/16/24 Previous Rx's ?Medication ?Instructions ?Recorded nitroglycerin 0.4 mg sublingual 0.4 mg sublingual Q5M PRN chest 09/03/21 tablet (Nitrostat) pain #25 tabs ipratropium 0.5 mg-albuterol 3 mg 3 ml inhalation Q6H PRN shortness 09/07/22 (2.5 mg base)/3 mL nebulization of breath or wheezing #360 mL soln metoprolol tartrate 25 mg tablet 25 mg PO BID #180 tab s 06/07/23 budesonide 160 mcg-glycopyr 9 2 inh inhalation BID #10 .7 grams 07/26/23 mcg-formot 4.8 mcg/actuation HFA inhaler (Breztri Aerosphere) isosorbide mononitrate 30 mg 30 mg PO DAILY #90 tabs 0 09/12/23 tablet,extended release 24 hr clopidogrel 75 mg tablet 75 mg PO DAILY #90 tabs 01/16 01/08 simvastatin 40 mg tablet 40 mg PO BEDTIME #90 tabs polyethylene glycol 3350 17 17 g PO DAILY #510 grams 0 10/17/24 gram/dose oral powder (Miralax) Allergies Allergy/AdvReac Type Severity Reaction Status Date / Time No Known Allergies Allergy Verified 09/07/24 08:52 Review of Systems General: Reports: 10 or more systems reviewed and unremarkable except in HPI and below Const: Denies: fever(s) or chills Card: Denies: chest pain Resp: Denies: dyspnea or productive cough GI: Denies: abdominal pain, nausea, vomiting or diarrhea : Denies: flank pain Musc: Reports: extremity pain (Right upper extremity) and limited range of motion; Denies: neck pain, back pain, extremity swelling, joint redness, joint warmth or muscle weakness Skin/Breast: Denies: rash Neuro: Denies: headache(s), numbness in extremities or weakness in extremities FOR[facility]LY [facility] ED PFSH: Medical History Chest discomfort CAD (coronary artery disease) Mixed stress and urge urinary incontinence Recurrent UTI Insomnia Hx of colonic polyps Hx of gastroesophageal reflux (GERD) Hx of hyperparathyroidism Hx of irritable bowel syndrome Hx of anxiety disorder Hx of hyperlipidemia Peripheral arterial occlusive disease History of hypertension Hx of sleep apnea Encounter for screening for lung cancer History of COPD Surgical History Hx of tubal ligation Hx of carpal tunnel repair Hx of parathyroidectomy History of bilateral cataract extraction Hx of esophagogastroduodenoscopy Hx of colonoscopy Family History Brother Kidney stones Mother , in late 60s Cancer Breast Diabetes Brain tumor Father , in late 60s Encysted lung fluid Social History Smoking and tobacco/nicotine status: current every day tobacco/nicotine user cigarettes Packs smoked per day: 0.5 Years cigarettes smoked: 40 Quit status (tobacco/nicotine): considering quitting Second hand smoke exposure: No Alcohol intake: current Alcohol intake frequency: holidays/special occasions only Substance/Drug Use: never Lives independently: Yes Household members: none Marital status: Current occupational status: retired Pets and animals: No Do you think of yourself as: Straight/Heterosexual Current gender identity: Female Physical Exam Const: COMMON NORMALS: no acute distress, patient oriented x3, no limitations, healthy appearing, alert and well nourished HENMT: COMMON NORMALS: normocephalic and atraumatic HEAD & SCALP: normocephalic and atraumatic OTHER: No signs of face head or neck trauma. No Dorsey sign or raccoon eyes. Eye: COMMON NORMALS: Equal, round and reactive pupils present, EOMs intact bilaterally and conjunctivae normal CONJUNCTIVA: Yes conjunctivae normal PUPIL: Yes Equal, round and reactive pupils present Neck/C-Spine: COMMON NORMALS: full ROM, supple and no meningeal signs OTHER: No cervical spine tenderness to palpation Chest: COMMONS NORMALS: normal inspection of the chest and normal palpation of entire chest wall Resp: COMMON NORMALS: normal respiratory effort, No use of accessory muscles and clear to auscultation bilaterally AUSCULTATION: clear to auscultation bilaterally Cardio: COMMON NORMALS: regular rate and regular rhythm RATE: regular rate RHYTHM: regular rhythm Extremity: COMMON NORMALS: capillary refill normal, no joint enlargement and no clubbing, cyanosis or edema NARRATIVE EXTREMITY EXAM: Diffuse tenderness to palpation along the right upper extremity, primarily to the middle right forearm and mid right humerus. Appears to be mild deformity of both of these regions as well. Distal radial pulses palpable. 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 No clavicular tenderness or scapular spine tenderness. No skin tenting. Neuro: COMMON NORMALS: patient oriented x3, moves all extremities, no focal motor deficits and no sensory deficits noted SENSORIUM/ORIENTATION: Yes alert MENINGEAL SIGNS: Yes no meningeal signs Skin: NARRATIVE SKIN EXAM: Small abrasion to right palm Course Vital Signs: Vital signs: Vital Signs Pulse Rate 64 10/17/24 21:33 Respiratory Rate 18 10/17/24 22:33 Blood Pressure 131/50 10/17/24 20:26 Pulse Oximetry 94 10/17/24 22:33 Oxygen Delivery Me thod Nasal Cannula 10/17/24 21:33 Oxygen Flow Rate 2 10/17/24 21:33 MDM - Extremity (Nontraumatic) Medical Decision Making Patient presented by ambulance for a fall onto her left upper extremity, notable deformity to the right upper extremity on exam with tenderness to palpation and pain with range of motion. Distal neurovascular exam was intact however. X-ray of the right humerus showed comminuted but nondisplaced right humeral fracture of the shaft. Spoke with on-call orthopedist, Dr. Casas, who states this is still okay to sling and follow-up in the office. She already takes 10 mg of [place] and just had this prescription filled today. Was treated for breakthrough pain with morphine here in the ED and notes that her pain is essentially absent if she does not move it. Does have a history of COPD did request a DuoNeb therapy and at 1 point was put on 2 L of oxygen, however she does use oxygen at home as needed. Referral placed for outpatient follow-up and discharged home in a sling. Lab Data Radiology Impressions Forearm X-Ray 10/17/24 20:32 IMPRESSION: As above. Humerus X-Ray 10/17/24 20:32 IMPRESSION: As above. All radiology interpretation(s) finalized by discharge Discharge Plan Discharge Patient Disposition: Home Clinical Impression: Closed right humeral fracture Qualifiers: Encounter type: initial encounter Humerus Location: shaft Fracture morphology: comminuted Fracture alignment: nondisplaced Qualified Code(s): S42.354A - Nondisplaced comminuted fracture of shaft of humerus, right arm, initial encounter for closed fracture Condition: Stable Prescriptions: New polyethylene glycol 3350 [Miralax] 17 gram/dose powder 17 g PO DAILY Qty: 510 0RF Rx Instructions: Take 1 scoop daily while taking pain medications. No Action cholecalciferol (vitamin D3) 25 mcg (1,000 unit) capsule 25 mcg PO QAM lorazepam 0.5 mg tablet 0.5 mg PO BEDTIME PRN (Reason: sleep) benazepril 40 mg tablet 40 mg PO QAM aspirin [Adult Aspirin Regimen] 81 mg tablet,delayed release (DR/EC) 81 mg PO BEDTIME albuterol sulfate [Ventolin HFA] 90 mcg/actuation HFA aerosol inhaler 2 puff INHALATION Q4H PRN (Reason: shortness of breath or wheezing) nitroglycerin [Nitrostat] 0.4 mg tablet, sublingual 0.4 mg SUBLINGUAL Q5M PRN (Reason: chest pain) Qty: 25 3RF Rx Instructions: do not exceed 3 doses per episode ipratropium-albuterol 0.5 mg-3 mg(2.5 mg base)/3 mL solution for nebulization 3 ml inhalation Q6H PRN (Reason: shortness of breath or wheezing) Qty: 360 3RF metoprolol tartrate 25 mg tablet 25 mg PO BID Qty: 180 3RF Breztri Aerosphere 160-9-4.8 mcg/actuation HFA aerosol inhaler 2 inh inhalation BID Qty: 10.7 6RF isosorbide mononitrate 30 mg tablet extended release 24 hr 30 mg PO DAILY Qty: 90 3RF simvastatin 40 mg tablet 40 mg PO BEDTIME Qty: 90 3RF paroxetine HCl 40 mg tablet 40 mg PO BEDTIME cyclobenzaprine 5 mg tablet 5 mg PO DAILY PRN (Reason: Muscle Spasm) clopidogrel 75 mg Tablet 75 mg PO DAILY Qty: 90 3RF hydrocodone-acetaminophen 10-325 mg tablet 1 - 2 tab PO .Q4-6H PRN (Reason: Pain) metformin 500 mg tablet extended release 24 hr 500 mg PO DAILY hydrochlorothiazide 25 mg tablet 25 mg PO DAILY Otezla 30 mg tablet 30 mg PO DAILY Discharge Orders: Discharge ED (Routine); Ordered 10/17/24 Ordered By: Abad Riley Referrals: Cezar Lorenz MD [Primary Care Provider] - Patient Instructions: Arm Fracture in Adults (ED) Activity Restrictions/Additional Instructions: Sling on for immobilization as we discussed. Please continue taking your previously prescribed hydrocodone that you have already, for any breakthrough pain call your primary care. Also follow-up with orthopedics as we discussed for reevaluation. For any other new or concerning symptoms return to the ED. Print Language: Welsh Coding Level of Care Code ED Gastroenterology Manager for [facility]
[2024-10-17] MEDS: morphine 4 mg/mL SDV 1 mL IVP (20:52)
[2024-10-17] MEDS: ipratropium-albuterol 3 mL Neb INHALATION (21:11)
[2024-10-17] MEDS: morphine 4 mg/mL SDV 1 mL 2 MG IVP (22:33)
--- NOTE | 2024-10-18 09:16 | DCPLANNER ---
messaged ortho for er f/u
== END 2024-10-17 22:47 | disposition home or self-care (01) ==
PROVIDERS: Emergency Provider Physician Assistant; PCP Family Medicine
DX: S42.354A Nondisplaced comminuted fracture of shaft of humerus, right arm, initial encounter for closed fracture (principal); Z79.82 Long term (current) use of aspirin; Z79.84 Long term (current) use of oral hypoglycemic drugs; F17.210 Nicotine dependence, cigarettes, uncomplicated; I25.10 Atherosclerotic heart disease of native coronary artery without angina pectoris; E78.5 Hyperlipidemia, unspecified; J44.9 Chronic obstructive pulmonary disease, unspecified; W19.XXXA Unspecified fall, initial encounter
CPT/HCPCS: 73060; 73090; 94640; 96374; 96376; 99214; 99284; J2270; J9999

== ENCOUNTER → 2024-10-22 08:15 | Outpatient (BNVA) | payer MEDICARE, MEDICAID, SELFPAY | PROVIDERS: PCP Family Medicine; Visit Provider Orthopaedic Surgery | DX: S42.354A Nondisplaced comminuted fracture of shaft of humerus, right arm, initial encounter for closed fracture (principal); W19.XXXA Unspecified fall, initial encounter; Z46.89 Encounter for fitting and adjustment of other specified devices; S42.294D Other nondisplaced fracture of upper end of right humerus, subsequent encounter for fracture with routine healing; X58.XXXD Exposure to other specified factors, subsequent encounter | CPT/HCPCS: 73060; 99204 ==

== ENCOUNTER 2024-10-22 09:37 | Outpatient (CLI) | payer MEDICARE, MEDICAID, SELFPAY | END 2024-10-22 09:38 | disposition home or self-care (01) | LOC: SPT 09:38 | PROVIDERS: PCP Family Medicine; Visit Provider Orthopaedic Surgery | DX: Z46.89 Encounter for fitting and adjustment of other specified devices (principal); S42.294D Other nondisplaced fracture of upper end of right humerus, subsequent encounter for fracture with routine healing; X58.XXXD Exposure to other specified factors, subsequent encounter | CPT/HCPCS: 97760; L3980 ==

== ENCOUNTER → 2024-10-25 10:30 | Outpatient (BNVA) | payer MEDICARE, MEDICAID, SELFPAY | PROVIDERS: PCP Family Medicine; Visit Provider Orthopaedic Surgery | DX: S42.291D Other displaced fracture of upper end of right humerus, subsequent encounter for fracture with routine healing (principal); X58.XXXD Exposure to other specified factors, subsequent encounter | CPT/HCPCS: 73060; 99213 ==

== ENCOUNTER → 2024-11-09 10:51 | Outpatient (BNVA) | payer MEDICARE, MEDICAID, SELFPAY | PROVIDERS: PCP Family Medicine; Visit Provider Internal Medicine Cardiovascular Disease | DX: I25.10 Atherosclerotic heart disease of native coronary artery without angina pectoris (principal); J44.9 Chronic obstructive pulmonary disease, unspecified; I10 Essential (primary) hypertension; E78.5 Hyperlipidemia, unspecified; Z71.6 Tobacco abuse counseling; Z79.01 Long term (current) use of anticoagulants; Z79.82 Long term (current) use of aspirin; Z98.61 Coronary angioplasty status; F17.210 Nicotine dependence, cigarettes, uncomplicated | CPT/HCPCS: 99214 ==

== ENCOUNTER → 2024-11-15 10:38 | Outpatient (BNVA) | payer MEDICARE, MEDICAID, SELFPAY | PROVIDERS: PCP Family Medicine; Visit Provider Orthopaedic Surgery | DX: S42.291D Other displaced fracture of upper end of right humerus, subsequent encounter for fracture with routine healing (principal); X58.XXXD Exposure to other specified factors, subsequent encounter | CPT/HCPCS: 73060; 99213 ==

== ENCOUNTER → 2024-11-27 13:06 | Outpatient (BNVA) | payer MEDICARE, MEDICAID, SELFPAY | PROVIDERS: PCP Family Medicine; Visit Provider Internal Medicine Cardiovascular Disease | DX: I25.10 Atherosclerotic heart disease of native coronary artery without angina pectoris (principal); Z91.81 History of falling; J44.9 Chronic obstructive pulmonary disease, unspecified; Z79.01 Long term (current) use of anticoagulants; Z79.82 Long term (current) use of aspirin; F17.210 Nicotine dependence, cigarettes, uncomplicated | CPT/HCPCS: 99214 ==

== ENCOUNTER → 2024-11-29 10:58 | Outpatient (BNVA) | payer MEDICARE, MEDICAID, SELFPAY | PROVIDERS: PCP Family Medicine; Visit Provider Orthopaedic Surgery | DX: S42.291D Other displaced fracture of upper end of right humerus, subsequent encounter for fracture with routine healing (principal); X58.XXXD Exposure to other specified factors, subsequent encounter | CPT/HCPCS: 73060; 99213 ==

== ENCOUNTER → 2024-12-14 10:21 | Outpatient (BNVA) | payer MEDICARE, MEDICAID, SELFPAY | PROVIDERS: PCP Family Medicine; Visit Provider Orthopaedic Surgery | DX: S42.291D Other displaced fracture of upper end of right humerus, subsequent encounter for fracture with routine healing (principal); X58.XXXD Exposure to other specified factors, subsequent encounter | CPT/HCPCS: 73060; 99213 ==

== ENCOUNTER → 2025-01-24 11:27 | Outpatient (BNVA) | payer OTHER, MEDICAID, SELFPAY | PROVIDERS: PCP Family Medicine; Visit Provider Orthopaedic Surgery | DX: S42.291D Other displaced fracture of upper end of right humerus, subsequent encounter for fracture with routine healing (principal); X58.XXXD Exposure to other specified factors, subsequent encounter | CPT/HCPCS: 99213 ==

== ENCOUNTER → 2025-02-06 09:36 | Outpatient (BNVA) | payer OTHER, MEDICAID, SELFPAY | PROVIDERS: PCP Family Medicine; Visit Provider Nurse Practitioner Family | DX: I73.9 Peripheral vascular disease, unspecified (principal); I25.10 Atherosclerotic heart disease of native coronary artery without angina pectoris; J43.8 Other emphysema; Z79.02 Long term (current) use of antithrombotics/antiplatelets; Z79.82 Long term (current) use of aspirin; Z91.81 History of falling; F17.210 Nicotine dependence, cigarettes, uncomplicated; Z86.79 Personal history of other diseases of the circulatory system | CPT/HCPCS: 99214 ==

== ENCOUNTER 2025-02-13 14:19 | Outpatient (CLI) | payer OTHER, MEDICAID, SELFPAY ==
--- NOTE | 2025-02-13 14:30 | CTR_ITS ---
PROCEDURE INFORMATION: Exam: CTA Abdominal Aorta and Bilateral Lower Extremities (Run-off) With Contrast Exam date and time: 02/13/2025 3:29 PM Age: 74 years old Clinical indication: Other: Cramping of bilateral lower extremities; Prior surgery; Surgery date: 6+ months; Surgery type: Bilateral lower extremity stents, tubal; Cramping in bilateral lower extremities; Additional info: Bilateral lower extremity claudication TECHNIQUE: Imaging protocol: Computed tomographic angiography of the of the abdominal aorta, pelvis and bilateral lower extremities with contrast. 3D rendering (Not supervised by radiologist): MIP and/or 3D reconstructed images were created by the technologist. Radiation optimization: All CT scans at this facility use at least one of these dose optimization techniques: automated exposure control; mA and/or kV adjustment per patient size (includes targeted exams where dose is matched to clinical indication); or iterative reconstruction. Contrast material: OMNIPAQUE 350; Contrast volume: 125 ml; Contrast route: INTRAVENOUS (IV); COMPARISON: CT angio abd aorta runof [id number] 03/30/2024 1:00 PM RADIATION DOSE METRICS: Total DLP (mGy-cm): 1479.6 FINDINGS: Aorta: No aortic aneurysm. No aortic dissection. Moderate atherosclerosis. 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 Celiac trunk and mesenteric arteries: Moderate atherosclerosis at the origins of the celiac and mesenteric arteries. The celiac artery, SMA and JAZMIN patent. Renal arteries: The bilateral renal arteries are patent. Moderate atherosclerosis at the bilateral renal artery origins. Right iliac arteries: . The right common iliac, external iliac and internal iliac arteries are patent with moderate atherosclerosis. Unchanged penetrating ulcer measuring up to 8 mm arising from the medial wall of the proximal right common iliac artery Right femoral/popliteal arteries: Atherosclerosis in the right common femoral artery resulting in moderate stenosis. Interval short segment stenting in the superficial femoral artery. There is atherosclerosis throughout the right superficial artery with multiple regions of gifi-[id number] stenosis. The popliteal artery is patent with multiple areas of severe stenosis. Right infrapopliteal arteries: Three-vessel runoff to the ankle. Left iliac arteries: Atherosclerosis with areas of [id number] stenosis throughout the course of the external iliac artery. Left femoral/popliteal arteries: Atherosclerosis involving the common femoral artery with up to moderate narrowing. Interval stenting in the superficial femoral artery. Multiple areas of [id number] stenosis throughout the superficial femoral artery the popliteal artery is patent with atherosclerosis and areas of mild to moderate stenosis. Left infrapopliteal arteries: There is three-vessel runoff to the ankle. Liver: No mass. Gallbladder and biliary ducts: Unremarkable. No calcified stones. No ductal dilation. Pancreas: Unremarkable. No mass. No ductal dilation. Spleen: Normal. No splenomegaly. Adrenal glands: Normal. No mass. Kidneys and ureters: Normal. No mass. Stomach and bowel: Unremarkable. No obstruction. No mucosal thickening. Appendix: No evidence of appendicitis. Urinary bladder: Unremarkable. No mass. Reproductive: Unremarkable as visualized. Intraperitoneal space: Unremarkable. No free air. No significant fluid collection. Lymph nodes: No lymphadenopathy. Bones/joints: No acute fracture. Stable L3 compression deformity. Soft tissues: Unremarkable. CT/CT angio abd aorta runof [id number] IMPRESSION: Extensive atherosclerosis with multiple areas of moderate to severe stenosis in the arteries of the bilateral lower extremities the level of the popliteal arteries, worse on the right. There is three-vessel runoff to the ankles bilaterally.
[2025-02-13 15:29] LABS: Hematocrit 37.0 % (36-47); Hemoglobin 12.40 g/dL (11.27-16.99); Mean Corpuscular HGB Conc 33.5 g/dL (30-55); Mean Corpuscular Hemoglobin 28.2 pg (27-33); Mean Corpuscular Volume 84.3 fl (85-98); Nucleated Red Blood Cells % 0 %; Platelet Count 401 10^3/cmm (157-399); Red Blood Count 4.39 10^6/uL (3.85-5.65); White Blood Count 8.99 10^3/uL (3.29-11.43)
[2025-02-13 15:48] LABS: INR 0.85 (0.8-1.2); Prothrombin Time 12.20 SECONDS (12.1-14.9)
[2025-02-13 15:52] LABS: Alanine Aminotransferase 13 U/L (0-33); Albumin Level 4.1 g/dL (3.5-5.2); Alkaline Phosphatase 109 U/L (35-105); Anion Gap 15.3 (5-19); Aspartate Amino Transferase 14 U/L (0-32); Blood Urea Nitrogen 18 mg/dL (8-23); Calcium 8.9 mg/dL (8.5-10.5); Carbon Dioxide 27 mmol/L (22-29); Chloride 97 mmol/L (98-107); Globulin 2.7 g/dL (1.3-4.6); Glucose 99 mg/dL (65-115); Osmolality Calculated 282 mOsm/kg (285-295); Potassium 4.3 mmol/L (3.5-5.1); Sodium 135 mmol/L (136-145); Total Protein 6.8 g/dL (6.6-8.7)
[2025-02-13] MEDS: iohexol 350 mg/mL 500 mL Btl (per mL) IV (16:09)
== END 2025-02-13 14:20 | disposition home or self-care (01) ==
LOC: RAD 14:20
PROVIDERS: PCP Family Medicine; Visit Provider Nurse Practitioner Family
DX: I73.9 Peripheral vascular disease, unspecified (principal); I10 Essential (primary) hypertension; I25.10 Atherosclerotic heart disease of native coronary artery without angina pectoris
CPT/HCPCS: 36415; 75635; 80053; 85025; 85610

== ENCOUNTER 2025-04-09 06:00 | Outpatient (CLI) | payer OTHER, MEDICAID, SELFPAY ==
[2025-04-09] VITALS (22 sets, daily range): BP systolic 109–187; BP diastolic 44–90; PULSE 60–81; RESP 11–23; TEMP 36.6–36.8; O2SAT 90–98; BMI 26.6
--- NOTE | 2025-04-09 06:05 | XACV_ITS ---
Ht: 163 cm Wt: 70 kg BSA: 1.80 m2 Any Known Allergies: No known allergies Gender: Female : 1950 Exam Type: Invasive Peripheral Vascular Procedure(s): Procedure Description: Diagnostic procedure Procedure Description: Peripheral Cath Diagnostic Procedure Procedure Description: Abdominal aortic angiography Procedure Description: Iliac arterial aortic angiography Procedure Description: Lower extremities' angiography Procedure Description: Peripheral vascular Intervention Procedure Description: PV Balloon Procedure Description: Miscellaneous Procedure Description: ACT Exam Priority: Routine KHAMU2, Fox; Lower Extremity Diagnostic Findings Indication for peripheral angiogram and angioplasty: Critical limb ischemiaCatheters used: Long 6 Colombian sheath, 6 Colombian short sheath, UF catheter, seeker Abdominal aortography: Through Seldinger technique left common femoral was cannulated, UF catheter was placed at the renal artery level. Abdominal aortogram was performed, It was noted to have no significant aneurysm but mild to moderate atherosclerotic plaque.Renal artery right and left are patentUF catheter was then placed in the right common iliac artery and peripheral angiogram of right lower extremity was obtainedRight common iliac has luminal irregularity. Right external and internal iliac artery has luminal irregularity Right common femoral artery has high-grade calcified eccentric more than 90% stenosis it is a culprit vessel Right profundofemoral has luminal irregularity without significant stenosis Right superficial femoral artery has distal high-grade calcified occlusion Right popliteal artery is 100% occluded and reconstitute in its distal segment Right tibioperoneal trunk has high-grade proximal to mid stenosis Right anterior tibial is chronically occluded Right posterior tibial is patent through collaterals Right peroneal artery is patent through collateralsThrough left common femoral 6 Colombian short sheath left lower extremity peripheral angiogram was performed.Left common iliac artery has ostial high-grade stenosis which is eccentric around 70 to 80% appear to be significant Left external and internal iliac arteries luminal irregularity without significant stenosis Left SFA has moderate to high-grade proximal stenosis, SFA is mid to distal segment appear to be patent Left profundofemoral is patent Left popliteal and tibioperoneal is patent Left posterior tibial and peroneal is patent Left anterior tibial appear to be chronically occluded. Lower Extremity Interventional Findings Percutaneous angioplasty using lithotripsy of renal right common femoral arteryShort 6 Colombian sheath in left common femoral artery was exchanged over the wire with a long destination sheath. We were able to cross using Glidewire, seeker was used to exchange with run-through wire over which lithotripsy IV L catheter was advanced multiple pulses of lithotripsy were used to break the calcium at 4 maurilio. Reasonable good result was obtained. We then advanced [employer] 6.0 x 18 mm balloon which was inflated at minimal atmospheric for 3 minutes. 90% right common femoral eccentric high-grade calcified lesion was reduced to 40%, since it is in common femoral artery on the hip joint stent was avoided and we excepted the result. In the future we may opt for superior stent if patient right common femoral artery does not remains patent, we can also consider surgical option due to common femoral lesion. Conclusions Indication for peripheral angiogram and angioplasty: Critical limb ischemiaCatheters used: Long 6 Colombian sheath, 6 Colombian short sheath, UF catheter, seeker Abdominal aortography: Through Seldinger technique left common femoral was cannulated, UF catheter was placed at the renal artery level. Abdominal aortogram was performed, It was noted to have no significant aneurysm but mild to moderate atherosclerotic plaque.Renal artery right and left are patentUF catheter was then placed in the right common iliac artery and peripheral angiogram of right lower extremity was obtainedRight common iliac has luminal irregularity. Right external and internal iliac artery has luminal irregularity Right common femoral artery has high-grade calcified eccentric more than 90% stenosis it is a culprit vessel Right profundofemoral has luminal irregularity without significant stenosis Right superficial femoral artery has distal high-grade calcified occlusion Right popliteal artery is 100% occluded and reconstitute in its distal segment Right tibioperoneal trunk has high-grade proximal to mid stenosis Right anterior tibial is chronically occluded Right posterior tibial is patent through collaterals Right peroneal artery is patent through collateralsThrough left common femoral 6 Colombian short sheath left lower extremity peripheral angiogram was performed.Left common iliac artery has ostial high-grade stenosis which is eccentric around 70 to 80% appear to be significant Left external and internal iliac arteries luminal irregularity without significant stenosis Left SFA has moderate to high-grade proximal stenosis, SFA is mid to distal segment appear to be patent Left profundofemoral is patent Left popliteal and tibioperoneal is patent Left posterior tibial and peroneal is patent Left anterior tibial appear to be chronically occluded. Recommendations 1-Return to inpatient for close monitoring and routine cath care 2-Risk factor modification for secondary prevention 3-Statin and aspirin 81 mg life-long, if tolerated 4-Patient was pre-loaded with 300 mg of Plavix, continue Plavix 75mg p.o. daily for at least one year. We will assess at the end of one year again to continue if further or not 5-Continue optimal medical management 6-Follow up with Dr. Fox in four weeks and your primary care in 10 days. Hemodynamic Data Phase:Rest AO : 167.0 / 59.0 ( 100.0 ) @ 9:19:00 AM 83.0 / 43.0 ( 60.0 ) @ 9:37:00 AM 83.0 / 50.0 ( 65.0 ) @ 10:14:00 AM 142.0 / 55.0 ( 90.0 ) @ 10:39:00 AM Access Site Site: Left Femoral artery Sheath Size: 6 Fr Hemost... Method: Suture Hemost... Success: Successful Procedure Details Findings Procedure Consent Obtained. Pre-Procedure Time Out. Identified patient by full name and date of as verbalized by the patient/guarantor. Does the consent match the physician's order: Yes. Accurate & Complete Informed Consent: Yes. Inpatient/Outpatient History & Physical on Chart: Yes. If H&P is completed, is and addenduem needed: No. Visualize and Verify Site with Patient/Guarantor: N/A. Relevant Radiology Images available: Yes. The risks, benefits, and alternatives of sedation and/or procedure were discussed by physician. The patient agrees to continue. Procedure started. Correct patient, site and procedure confirmed by cath team. Current diagnosis: PVD. PERRLA. Strong, equal hand intellectual property paralegal bilaterally. Lungs clear x 5 lobes. IV Site on Arrival: 20 gauge in the right anticubital. IV Fluids: 0.9% NaCl at KVO. 0 mL infused prior to laboratory monitor. Pre Procedural Pulses: bilateral dorsalis pedis was Doppled. Pre Procedural Pulses: bilateral posterior tibial was Doppled. Oxygen started at 2liters/min via nasal canula. bilateral groins was prepped with chloroprep then draped in the usual sterile fashion. Physician notified. Patient's family in the laboratory monitor waiting room. Dr. Fox will update at the completion of the procedure. Equipment: 6F - Femoral. Cardiac Cath Pack. ACIST Manifold Kit Model BT 2000. Heparinized Saline (2 units/mL), 1000 mL bag. Kit, Micropuncture. Physician arrived. Baseline sample Acquired. HR: 71 BPM. Physician scrubbed in. Immediate Pre-Procedure Time Out. Correct Patient: Yes; Correct Procedure: Yes; Correct Site: Yes; Correct Patient Position: Yes; Correct Supplies: Yes; Dried Flammable Prep: Yes; Blood Products Available: N/A. Lidocaine 1% infiltrated to the left groin. Arterial access obtained with micropuncture set. A 5 Fr UF catheter in over 0.035 x 260cm stiff angled glidewire. Glidewire out. Pigtail postioned above the bifurcation of the iliacs. Aortagram performed @ 10 mL/sec for a total of 30 mL. Pigtail postioned above the bifurcation of the iliacs. Aortagram performed @ 10 mL/sec for a total of 30 mL in DSA. Standard J wire in to reposition the UF catheter. Standard J wire out. Glidewire in through the UF catheter and used to advance down to the right common femoral. Glidewire out. Right common femoral selected and arteriogram with runoff performed @ 10 mL/sec for a total of 30 mL. Glidewire in through the UF catheter and used to advance down the right SFA. UF catheter out. Sheath upsized to a 6 Fr. Seeker support catheter in over the glidewire. Glidewire out. 0.014 x 300cm Runthrough guidewire in through the seeker. Seeker out over the runthrough guidewire. Inflation number : 1 A Shockwave EB IVL 6.0mm x 80mm x 150cm was prepped and advanced across the Common Femoral, Right , then inflated to 4 MAURILIO for 0:38 seconds. Inflation number: 2 The Shockwave EB IVL 6.0mm x 80mm x 150cm was reinflated across the Common Femoral, Right, to 4 MAURILIO for 0:39 seconds. Inflation number: 3 The Shockwave EB IVL 6.0mm x 80mm x 150cm was reinflated across the Common Femoral, Right, to 0 MAURILIO for 0:39 seconds. Inflation number: 4 The Shockwave EB IVL 6.0mm x 80mm x 150cm was reinflated across the Common Femoral, Right, to 4 MAURILIO for 0:31 seconds. Inflation number: 5 The Shockwave EB IVL 6.0mm x 80mm x 150cm was reinflated across the Common Femoral, Right, to 4 MAURILIO for 0:31 seconds. Inflation number: 6 The Shockwave EB IVL 6.0mm x 80mm x 150cm was reinflated across the Common Femoral, Right, to 4 MAURILIO for 0:36 seconds. Inflation number: 7 The Shockwave EB IVL 6.0mm x 80mm x 150cm was reinflated across the Common Femoral, Right, to 4 MAURILIO for 0:40 seconds. Inflation number: 8 The Shockwave EB IVL 6.0mm x 80mm x 150cm was reinflated across the Common Femoral, Right, to 4 MAURILIO for 0:40 seconds. Inflation number: 9 The Shockwave EB IVL 6.0mm x 80mm x 150cm was reinflated across the Common Femoral, Right, to 4 MAURILIO for 0:26 seconds. Inflation number: 10 The Shockwave EB IVL6.0mm x 80mm x 150cm was reinflated across the Common Femoral, Right, to 4 MAURILIO for 0:34 seconds. Shockwave balloon out OTW. Inflation Number : 11 A Lutonix 018 DCB 6.0mm x 80mm x 130cm -Lot Number# [id number] Exp. 2025.11.07 was prepped and advanced across the Common Femoral, Right. The stent was deployed at 9 MAURILIO for 4:02 seconds. Inflation number: 12 The stent balloon was then re-inflated across the Common Femoral, Right to 9 MAURILIO for 1:18 seconds. Balloon out OTW. ACT drawn. Results 214 seconds. Therapeutic limits - pre-heparin administration 90-150 seconds and monitoring heparin during a vascular procedure >250 seconds. Right common femoral selected and arteriogram with runoff performed @ 10 mL/sec for a total of 30 mL. Seeker in over the runthrough guidewire. Runthrough guidewire out, Glidewire in. Seeker out OTW. Sheath upsized to a 6 Fr. Sheath injected in Left common femoral artery and runoff performed. Sheath injected in Left common femoral artery and runoff performed. A Suture was successful obtaining hemostatsis at the Left Femoral artery insertion site. Dr. Fox scrubbed out. Sheath(s) sutured into position with 2-0 silk and sterile 4x4's and Op-site applied over the site. No oozing or signs and symptoms of hematoma noted. Arterial sheath flushed and connected to tranducer and pressure bag with heparinized saline. Post Procedure: Pulses reassessed and unchanged. PERRLA. Strong, equal hand intellectual property paralegal bilaterally. No VTE prophylaxis required. Medication's Wasted: Nitro = 49.6 mg. Medication's Wasted: Heparin = 1000 units. Total IV fluids: 130 mL. Post-op diagnosis: IVL and DCB to right common femoral. Complications: none. Estimated blood loss: 5mL-10mL. Responsiveness - Normal response to verbal stimuli; alert and oriented, PERRLA. Airway - Unaffected, no intervention required; spontaneous ventilation. Circulation: W/N/L, pulses unchanged. Nausea/Vomiting: No. Procedure completed. Patient transferred by bed to 1st floor. Vital chart was stopped. Procedure Medications Start: 7:55 AM Stop: 7:55 AM Medication: Versed Amount: 1 mg Route: I.V. Start: 7:55 AM Stop: 7:55 AM Medication: Fentanyl Amount: 25 mcg Route: I.V. Start: 8:00 AM Stop: 8:00 AM Medication: Fentanyl Amount: 25 mcg Route: I.V. Start: 8:04 AM Stop: 8:04 AM Medication: Versed Amount: 1 mg Route: I.V. Start: 8:13 AM Stop: 8:13 AM Medication: Fentanyl Amount: 25 mcg Route: I.V. Start: 8:32 AM Stop: 8:32 AM Medication: Heparin Amount: 5000 units Route: I.V. Start: 8:40 AM Stop: 8:40 AM Medication: Fentanyl Amount: 25 mcg Route: I.V. Start: 8:41 AM Stop: 8:41 AM Medication: Fentanyl Amount: 25 mcg Route: I.V. Start: 8:42 AM Stop: 8:42 AM Medication: Fentanyl Amount: 25 mcg Route: I.V. Start: 8:43 AM Stop: 8:43 AM Medication: Versed Amount: 1 mg Route: I.V. Start: 8:48 AM Stop: 8:48 AM Medication: Fentanyl Amount: 25 mcg Route: I.V. Start: 8:56 AM Stop: 8:56 AM Medication: Versed Amount: 1 mg Route: I.V. Start: 8:56 AM Stop: 8:56 AM Medication: Fentanyl Amount: 25 mcg Route: I.V. Start: 9:04 AM Stop: 9:04 AM Medication: Fentanyl Amount: 50 mcg Route: I.V. Start: 9:10 AM Stop: 9:10 AM Medication: Versed Amount: 1 mg Route: I.V. Start: 9:29 AM Stop: 9:29 AM Medication: Nitrogylcerin Amount: 400 mcg Route: I.A. Start: 9:36 AM Stop: 9:36 AM Medication: Versed Amount: 1 mg Route: I.V. Start: 9:37 AM Stop: 9:37 AM Medication: Fentanyl Amount: 50 mcg Route: I.V. I, the attending physician, have reviewed and verified all procedure medications. Yes, all medications given per verbal order History/Risk Factors Hypertension: Yes Dyslipidemia: Yes Peripheral Arterial Disease (PAD): Yes Obesity: No Renal Disease: No Prior Interventions PCI: Yes CABG: No Valve Surgery: No Date of PCI: 02/09/2024 Report Signatures Finalized by Zen Fox MD on 05/08/2025 09:20 PM
[2025-04-09 06:35] LABS: Hematocrit 38.4 % (36-47); Hemoglobin 12.80 g/dL (11.27-16.99); Mean Corpuscular HGB Conc 33.3 g/dL (30-55); Mean Corpuscular Hemoglobin 28.6 pg (27-33); Mean Corpuscular Volume 85.7 fl (85-98); Nucleated Red Blood Cells % 0 %; Platelet Count 373 10^3/cmm (157-399); Red Blood Count 4.48 10^6/uL (3.85-5.65); White Blood Count 9.69 10^3/uL (3.29-11.43)
[2025-04-09 06:49] LABS: Anion Gap 15.9 (5-19); Blood Urea Nitrogen 15 mg/dL (8-23); Calcium 9.2 mg/dL (8.5-10.5); Carbon Dioxide 27 mmol/L (22-29); Chloride 96 mmol/L (98-107); Creatinine Clr Calc Pharmacy 56.6578; Glucose 117 mg/dL (65-115); Osmolality Calculated 282 mOsm/kg (285-295); Potassium 3.9 mmol/L (3.5-5.1); Sodium 135 mmol/L (136-145)
--- NOTE | 2025-04-09 07:55 | W.PM.OPSFHP ---
Same Day Surgery H&P Indication for Procedure/HPI DATE OF PROCEDURE: April 09, 2025 CHIEF COMPLAINT/INDICATIONFOR SURGICAL PROCEDURE: Lifestyle-limiting claudication and occasionally pain at rest in the right lower extremity with prior intervention PREOP DIAGNOSIS: Preop diagnosis is lifestyle-limiting claudication despite of optimization, PLANNED PROCEDURE: Operation Date: 04/09/25 07:00 Proposed Procedures p Peripheral Diagnostic - Periph Angio SANAM(Bilateral) - Zen Fox MD 75-year-old female past medical history significant for coronary disease PAD hypertension hyperlipidemia history of smoking on optimal medical regimen had prior intervention on the right lower extremity in May of last year continues to have symptoms since October of this year not to the extent that she can barely walk and need help occasionally she feels a tightness of the leg as well. She saw our nurse practitioner in the cardiology clinic in January of this year. Patient has severely depressed MAGDA and October of this year. Patient later underwent CTA with runoff was abnormal since patient continues to have symptoms therefore it was decided to bring her for angiogram. Medications/Allergies* Home Medications ?Medication ?Instructions ?Recorded ?Confirmed ?Type albuterol sulfate 90 mcg/actuation 2 puff inhalation Q4H PRN 03/19/20 04/09/25 History aerosol inhaler (Ventolin HFA) shortness of breath or wheezing aspirin 81 mg tablet,delayed 81 mg PO BEDTIME 03/19/20 04/09/25 History release (Adult Aspirin Regimen) benazepril 40 mg tablet 40 mg PO QAM 03/19/20 04/09/25 History lorazepam 0.5 mg tablet 0.5 mg PO BEDTIME PRN sleep 03/19/20 04/09/25 History cholecalciferol (vitamin D3) 25 25 mcg PO QAM 12/31/20 04/08/25 History mcg (1,000 unit) capsule cyclobenzaprine 5 mg tablet 5 mg PO DAILY PRN Muscle Spasm 12/29/21 04/08/25 History paroxetine HCl 40 mg tablet 40 mg PO BEDTIME 12/29/21 04/09/25 History hydrocodone 10 mg-acetaminophen 1 - 2 tab PO .Q4-6H PRN Pain 06/21/24 04/09/25 History 325 mg tablet metformin 500 mg tablet,extended 500 mg PO DAILY 06/21/24 04/09/25 History release 24 hr Held on 07/31/24. Instructions: Resume on 08/03/24. apremilast 30 mg tablet (Otezla) 30 mg PO DAILY 10/16/24 04/09/25 History hydrochlorothiazide 25 mg tablet 25 mg PO DAILY 10/16/24 04/09/25 History Allergies/Adverse Reactions Allergy/AdvReac Type Severity Reaction Status Date / Time No Known Allergies Allergy Verified 03/11/25 11:35 Current Medications: Generic Name Dose Route Start Last Admin Trade Name Elizabet PRN Reason Stop Dose Admin Sodium Chloride 1,000 mls @ 50 mls/hr 04/09/25 06:05 04/09/25 06:32 Sodium Chloride 0.9% IV 04/10/25 02:04 Not Given .Q20H ONE Pertinent History/Comorbid Conditions* Medical History (Updated 02/06/25 @ 12:48 by Magda Gómez NP) Chest discomfort CAD (coronary artery disease) Mixed stress and urge urinary incontinence Recurrent UTI Insomnia Hx of colonic polyps Hx of gastroesophageal reflux (GERD) Hx of hyperparathyroidism Hx of irritable bowel syndrome Hx of anxiety disorder Hx of hyperlipidemia Peripheral arterial occlusive disease History of hypertension Hx of sleep apnea Encounter for screening for lung cancer History of COPD Surgical History (Updated 08/18/21 @ 13:49 by Елена Neil DO) Hx of tubal ligation Hx of carpal tunnel repair Hx of parathyroidectomy History of bilateral cataract extraction Hx of esophagogastroduodenoscopy Hx of colonoscopy Family History (Updated 02/05/22 @ 09:53 by Reginald Casanova) Father, in late 60s Mother, in late 60s Brain tumor Mother Diabetes Mother Encysted lung fluid Father Kidney stones Brother Cancer Mother Breast Social History Smoking and tobacco/nicotine status: current every day tobacco/nicotine user (smokes 1/2 pack a day) cigarettes Packs smoked per day: 0.5 Years cigarettes smoked: 40 Quit status (tobacco/nicotine): considering quitting Second hand smoke exposure: No Alcohol intake: current Alcohol intake frequency: holidays/special occasions only Substance/Drug Use: never Lives independently: Yes Household members: none Marital status: Current occupational status: retired Pets and animals: No Do you think of yourself as: Straight/Heterosexual Current gender identity: Female Pertinent Exam Findings alert, oriented x 3, clear to auscultation bilaterally, regular rate & rhythm and operative site marked Conscious Sedation Assessment PATIENT ASSESSED PRIOR TO SEDATION, WITH NO CHANGE NOTED: Yes AIRWAY EVAL/ANESTHESIA PLAN: ASA II, Risks, benefits & alternatives of sedation and/or procedure discussed and Patient agrees to continue as planned ADDITIONAL INFORMATION: Alert awake oriented x 3 Heart regular S1-S2 Lungs clear to auscultate bilateral Absent pulses in the right lower extremity but no pallor or cold limb Recommendations Risks and benefits of procedure reviewed Other Other Plans: All risk-benefit and alternative for the procedure has been explained to the patient. Patient restand 2% risk of stroke major bleed. Patient understand 5% risk of minor bleeding oozing infection hematoma acute limb ischemia limb threatening ischemia contrast-induced nephropathy vascular complication urgent emergent vascular surgery MT. Patient agrees to it and would like to proceed with it. Coding Level of Care Code Acute Code for Natalyg Lala
--- NOTE | 2025-04-09 10:36 | PC.NURSE ---
patient arrived on the floor at 1000 via bed with left femoral sheath in place. PTT to be drawn at 1200. Dr Fox to pull due to lesion. Patient placed on 2L nasal cannula. Patient is resting comfortablly in bed.
--- NOTE | 2025-04-09 12:47 | PC.NURSE ---
see post cardiac cath vitals under vital documentation
[2025-04-09 13:20] LABS: Partial Thromboplastin Time 30.2 SECONDS (23.9-36.7)
[2025-04-09] MEDS: fentaNYL 50 mcg/mL INJ 2mL IVP (13:40)
--- NOTE | 2025-04-09 14:38 | PC.NURSE ---
sheath removed at 1400. Pressure held for 20 min. No hematoma formation present. Patient tolerated procedure well. Gauze and tegaderm covering the puncture site.
[2025-04-10 00:51] VITALS: BP 183/84; PULSE 94; RESP 17; TEMP 36.6; O2SAT 97
[2025-04-10 05:47] VITALS: BP 168/69; PULSE 93; RESP 17; TEMP 36.6; O2SAT 97
[2025-04-10 09:39] VITALS: BP 147/78; PULSE 106; RESP 14; TEMP 36.7; O2SAT 96
--- NOTE | 2025-04-10 09:43 | PC.CHAP ---
Pastoral Care Encounter/Spiritual Assessment Type of Contact [] Declined auto suspension and steering mechanic visit [] Patient/Family/Request visit [] Outpatient visit [] Follow-up visit [] Physician referral [] Code/Alert [x] Routine visit [] Staff referral [] Actively dying [] Patient sleeping [] Family support [] [] Out of room [] Palliative care [] [] Receiving care in room [] Pre-surgical visit [] Trauma [] Long length of stay [] ICU visit [] Other: Relational/Emotional Strength [x] Patient feels connected with others/family/visitors/staff [] Distress [] Loneliness/isolation [] Abandonment Spirituality of Patient [x] Person of Bessy [] Attends [employer] of their Bessy [x] Believes in Prayer [] Reads Bible or Orthodoxy materials [] There are Spiritual issues 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 addressed 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 Interventions [x] Prayer [x] Active listening [x] Non-anxious presence [x] Spiritual/emotional support [] Crisis/trauma care [] Spiritual counseling [] Bereavement support [] Provided bereavement packet [] Provided Bible/devotional materials [] Provided toy/stuffed animal, coloring book to patient or family member [] Provided Communion [] Anointing/[place] [] Salvation [x] Completed spiritual assessment [] Other: Impact on Illness or Injury [] Angry [] Fearful [] Anxious [] Often cries [] Exhaustion [] Unable to work [] Unable to attend jewish [] Unable to walk/stand [] Unable to read [] Unable to drive [] Unable to eat/drink [] Unable to sleep [] Unable to be with family [] Patient intubated [] Other: Summary Time spent with patient 5 min
--- NOTE | 2025-04-10 11:25 | P.DS_ITS ---
<Statement entered by Zen Fox MD - 04/14/25 22:54> Patient was evaluated and cared for in conjunction with an advanced practice practitioner. I personally not examined the patient but reviewed the chart and all pertinent data including imaging, telemetry, and laboratory results. I discussed the patient in detail with the advanced practice practitioner. Please see their note for complete H&P testing result and agreed upon plan of care for the patient. Discharge Providers Date of Admission: 04/09/2025 Date of Discharge: April 10, 2025 Attending Provider at Admission: Zen Fox MD Attending Provider at Discharge: Zen Fox MD Primary Care Provider: Cezar Lorenz MD Reason for Visit Reason for Visit: I73.9 Brief History: Eula Walter is a 75-year-old female with past medical history of PAD, hyperlipidemia, CAD, hypertension, COPD who had presented to the clinic with complaint of worsening claudication. CTA of the aorta with runoff revealed extensive atherosclerosis with multiple areas of moderate to severe stenosis bilaterally beginning with popliteal arteries right worse than left. Three- vessel runoff to the ankles bilaterally. Hospital Course Hospital Course She was brought yesterday for peripheral angiogram, underwent IVL and drug coated balloon angioplasty to right common femoral artery. She has done well overnight, no complications with cath site. She will discharge home today on Plavix and will add Xarelto 2.5mg BID. Renal function normal. Follow up with Dr Fox in 1 week as scheduled. Physical Exam Const: COMMON NORMALS: no acute distress and patient oriented x3 GENERAL APPEARANCE: cooperative ORIENTATION/CONSCIOUSNESS: Yes awake, Yes oriented to person, Yes oriented to place and Yes oriented to time Chest: COMMONS NORMALS: normal inspection of the chest and normal palpation of entire chest wall CHEST: Yes Symmetrical chest wall rise Resp: COMMON NORMALS: normal respiratory effort, No retractions, No use of accessory muscles and clear to auscultation bilaterally AUSCULTATION: clear to auscultation bilaterally Cardio: COMMON NORMALS: regular rate, regular rhythm, S1 normal heart sound present, S2 normal heart sound present, No gallops present (Cardio), No clicks present (Cardio), No murmurs present (Cardio) and No rub (Cardio) RATE: regular rate RHYTHM: regular rhythm HEART SOUNDS: S1 normal heart sound present and S2 normal heart sound present PERIPHERAL PULSES: radial pulses present positive right 2+ and femoral pulses present positive right 2+ Neuro: COMMON NORMALS: patient oriented x3 and moves all extremities SENSORIUM/ORIENTATION: Yes oriented to person, Yes oriented to place and Yes oriented to time Skin: WOUNDS: Yes surgical site (no hematoma palpable) Details: no odor Discharge Data Studies Completed and Pending Pending at discharge Category Date Time Status MAT PUNCHER request for service Routine Exams 04/09/25 06:05 Taken Laboratory Results WBC 9.69 10^3/uL (3.29-11.43) 04/09/25 06:23 RBC 4.48 10^6/uL (3.85-5.65) 04/09/25 06:23 Hgb 12.80 g/dL (11.27-16.99) 04/09/25 06:23 Hct 38.4 % (36-47) 04/09/25 06:23 MCV 85.7 fl (85-98) 04/09/25 06:23 MCH 28.6 pg (27-33) 04/09/25 06:23 MCHC 33.3 g/dL (30-55) 04/09/25 06:23 RDW 14.8 % (12.1-15.1) 04/09/25 06:23 Plt Count 373 10^3/cmm (157-399) 04/09/25 06:23 MPV 8.6 fL (7.4-10.4) 04/09/25 06:23 Neut % (Auto) 65.2 % 04/09/25 06:23 Lymph % (Auto) 27.2 % 04/09/25 06:23 [place] % (Auto) 6.3 % 04/09/25 06:23 Eos % (Auto) 0.0 % 04/09/25 06:23 Baso % (Auto) 1.0 % 04/09/25 06: Neut # (Auto) 6.31 10^3/uL (1.8-7.7) 04/09/25 06:23 Lymph # (Auto) 2.6 10^3/uL (0.8-4.8) 04/09/25 06:23 [place] # (Auto) 0.6 10^3/uL (0.2-0.9) 04/09/25 06:23 Eos # (Auto) 0.0 10^3/uL (0.0-0.8) 04/09/25 06:23 Baso # (Auto) 0.1 10^3/uL (0.0-0.1) 04/09/25 06:23 Nucleated RBC % (auto) 0 % 04/09/25 06:23 Nucleated RBCs # 0.0 /100WBC 04/09/25 06:23 APTT 30.2 SECONDS (23.9-36.7) 04/09/25 12:36 Sodium 135 mmol/L (136-145) L 04/09/25 06:23 Potassium 3.9 mmol/L (3.5-5.1) 04/09/25 06:23 Chloride 96 mmol/L (98-107) L 04/09/25 06:23 Carbon Dioxide 27 mmol/L (22-29) 04/09/25 06:23 Anion Gap 15.9 (5-19) 04/09/25 06:23 BUN 15 mg/dL (8-23) 04/09/25 06:23 Creatinine 0.6 mg/dL (0.5-0.9) 04/09/25 06:23 GFR Calculation Not Reportable 04/09/25 06:23 Glucose 117 mg/dL (65-115) H 04/09/25 06:23 Calculated Osmolality 282 mOsm/kg (285-295) L 04/09/25 06:23 Calcium 9.2 mg/dL (8.5-10.5) 04/09/25 06:23 Vitals Last Vital Signs Temp 98.0 F 04/10/25 09:39 Pulse 106 H 04/10/25 09:39 Resp 14 04/10/25 09:39 BP 147/78 04/10/25 09:39 Pulse Ox 96 04/10/25 09:39 O2 Del Method Room Air 04/10/25 05:47 Discharge Plan Discharge Patient Disposition: Home Prescriptions: New rivaroxaban [Xarelto] 2.5 mg tablet 2.5 mg PO BID Qty: 60 0RF Continued cholecalciferol (vitamin D3) 25 mcg (1,000 unit) capsule 25 mcg PO QAM (DME) Humeral fracture brace See Rx Instructions .Route .MEDSUPPLY Qty: 1 0RF Rx Instructions: As directed lorazepam 0.5 mg tablet 0.5 mg PO BEDTIME PRN (Reason: sleep) benazepril 40 mg tablet 40 mg PO QAM albuterol sulfate [Ventolin HFA] 90 mcg/actuation HFA aerosol inhaler 2 puff INHALATION Q4H PRN (Reason: shortness of breath or wheezing) nitroglycerin [Nitrostat] 0.4 mg tablet, sublingual 0.4 mg SUBLINGUAL Q5M PRN (Reason: chest pain) Qty: 25 3RF Rx Instructions: do not exceed 3 doses per episode ipratropium-albuterol 0.5 mg-3 mg(2.5 mg base)/3 mL solution for nebulization 3 ml inhalation Q6H PRN (Reason: shortness of breath or wheezing) Qty: 360 3RF metoprolol tartrate 25 mg tablet 25 mg PO BID Qty: 180 3RF Breztri Aerosphere 160-9-4.8 mcg/actuation HFA aerosol inhaler 2 inh inhalation BID Qty: 10.7 6RF isosorbide mononitrate 30 mg tablet extended release 24 hr 30 mg PO DAILY Qty: 90 3RF simvastatin 40 mg tablet See Rx Instructions .ROUTE .COMPLEX Qty: 90 3RF Dose Instruction: TAKE 1 TABLET BY MOUTH EVERYDAY AT BEDTIME Rx Instructions: TAKE 1 TABLET BY MOUTH EVERYDAY AT BEDTIME paroxetine HCl 40 mg tablet 40 mg PO BEDTIME cyclobenzaprine 5 mg tablet 5 mg PO DAILY PRN (Reason: Muscle Spasm) clopidogrel 75 mg Tablet 75 mg PO DAILY Qty: 90 3RF hydrocodone-acetaminophen 10-325 mg tablet 1 - 2 tab PO .Q4-6H PRN (Reason: Pain) metformin 500 mg tablet extended release 24 hr 500 mg PO DAILY hydrochlorothiazide 25 mg tablet 25 mg PO DAILY Otezla 30 mg tablet 30 mg PO DAILY polyethylene glycol 3350 [Miralax] 17 gram/dose powder 17 g PO DAILY Qty: 510 0RF Rx Instructions: Take 1 scoop daily while taking pain medications. Discontinued aspirin [Adult Aspirin Regimen] 81 mg tablet,delayed release (DR/EC) 81 mg PO BEDTIME Discharge Order = DC NOW: Discharge Order (Routine); Ordered 04/10/25 Ordered By: Tasneem Fox Referrals: Zen Fox MD [Physician, Cardiology] - 04/15/25 12:45 pm Cezar Lorenz MD [Primary Care Provider, [facility]] - 04/16/25 10:20 am Diet: Cardiac Activity: Increase activity as tolerated Patient Instructions: Rivaroxaban (By mouth), Peripheral Vascular Stent Placement (DC), Peripheral Vascular Angioplasty (DC) Activity Restrictions/Additional Instructions: No lifting over 5 pounds for 4 days. Print Language: Czech Discharge Date/Time: 04/10/25 12:15 Discharge Attestations Time Spent in Discharge Care*: less than 30 min Quality Metrics Clinical Quality Measures [ No reported AMI, CVA or VTE this stay] Coding Level of Care Code Acute Code for Chg Fwd
== END 2025-04-10 12:15 | disposition home or self-care (01) ==
LOC: CCL 06:06 → CSU 10:02
PROVIDERS: PCP Family Medicine; Visit Provider Internal Medicine Cardiovascular Disease
DX: I70.221 Atherosclerosis of native arteries of extremities with rest pain, right leg (principal); I70.92 Chronic total occlusion of artery of the extremities; I10 Essential (primary) hypertension; E78.5 Hyperlipidemia, unspecified; I25.10 Atherosclerotic heart disease of native coronary artery without angina pectoris; Z79.82 Long term (current) use of aspirin; Z79.84 Long term (current) use of oral hypoglycemic drugs; Z79.891 Long term (current) use of opiate analgesic; J44.9 Chronic obstructive pulmonary disease, unspecified; G47.30 Sleep apnea, unspecified; K21.9 Gastro-esophageal reflux disease without esophagitis; E21.3 Hyperparathyroidism, unspecified; F17.210 Nicotine dependence, cigarettes, uncomplicated
CPT/HCPCS: 36415; 75625; 75716; 80048; 85025; 85347; 85730; 99152; 99153; C1725; C1769; C1887; C1894; C2623; C9764; J1644; J2250; J3010; J3490; J7030; J9999; Q0163; Q9967

== ENCOUNTER 2025-04-24 14:05 | Outpatient (CLI) | payer OTHER, MEDICAID, SELFPAY ==
--- NOTE | 2025-04-24 14:12 | XR_ITS ---
WS: [id number] DEXA (DUAL ENERGY X-RAY ABSORPTIOMETRY) Bone mineral density was performed using a [employer] machine. HISTORY: ASYMPTOMATIC MENOPAUSAL STATE COMPARISON: 01/19/2023 Lumbar spine BMD (L1-L4): 1.408 g/cm2 T score: 1.9 Z score: 3.4 Total hip BMD: Left: 0.941 g/cm2. T score: -0.5 Z score: 1.1 Right: 0.967 g/cm2. T score: -0.3 Z score: 1.3 10 year probability of a major osteoporotic fracture is 16.2%. Compared to the prior study from 01/19/2023. Lumbar spine bone mineral density has decreased by 4.2%. Bilateral hips bone mineral density has decreased by 4.9%. XR/XR DEXA axial skeleton* [id number] IMPRESSION: NORMAL BONE MINERAL DENSITY based upon the WHO classification for females. Significant decrease in bone mineral density in the lumbar spine and hips since the prior study.
== END 2025-04-24 14:06 | disposition home or self-care (01) ==
LOC: RAD 14:08
PROVIDERS: PCP Family Medicine; Visit Provider Family Medicine
DX: Z13.820 Encounter for screening for osteoporosis (principal); Z78.0 Asymptomatic menopausal state
CPT/HCPCS: 77080

== ENCOUNTER → 2025-05-01 14:54 | Outpatient (BNVA) | payer OTHER, MEDICAID, SELFPAY | PROVIDERS: PCP Family Medicine; Visit Provider Internal Medicine Cardiovascular Disease | DX: I25.10 Atherosclerotic heart disease of native coronary artery without angina pectoris (principal); I73.9 Peripheral vascular disease, unspecified; I10 Essential (primary) hypertension; E78.5 Hyperlipidemia, unspecified; F17.210 Nicotine dependence, cigarettes, uncomplicated | CPT/HCPCS: 99214 ==

== ENCOUNTER → 2025-05-22 10:33 | Outpatient (BNVA) | payer OTHER, MEDICAID, SELFPAY | PROVIDERS: PCP Family Medicine; Visit Provider Nurse Practitioner Family | DX: L40.0 Psoriasis vulgaris (principal); R20.9 Unspecified disturbances of skin sensation; L40.59 Other psoriatic arthropathy; Z79.899 Other long term (current) drug therapy; D69.2 Other nonthrombocytopenic purpura; I78.8 Other diseases of capillaries; D22.39 Melanocytic nevi of other parts of face; D22.5 Melanocytic nevi of trunk; Z08 Encounter for follow-up examination after completed treatment for malignant neoplasm; Z85.828 Personal history of other malignant neoplasm of skin | CPT/HCPCS: 99213 ==

== ENCOUNTER 2025-06-03 09:18 | Outpatient (CLI) | payer OTHER, MEDICAID, SELFPAY ==
--- NOTE | 2025-06-03 09:24 | XR_ITS ---
WS: [id number] XR lumbar spine 6V w f/e [id number] REASON FOR EXAM: LUMBOSACRAL SPONDYLOSIS FINDINGS: Significant rotatory dextroscoliosis. Relatively normal lordosis. Significant biconcave compression deformity, chronic of the L3 vertebral body. Intervertebral disc spaces are intact with minimal narrowing. Mild vertebral body osteophytosis. 4 mm of anterolisthesis of L4 in relation to L5 in the neutral position. Slight slight accentuation with flexion and slight reduction with extension. No spondylolysis. Mild degenerative arthropathy in the facet joints L3-S1. XR/XR lumbar spine 6V w f/e [id number] IMPRESSION: Degenerative spondylosis as above. Mild progression compared to 01/22/2022.
== END 2025-06-03 09:19 | disposition home or self-care (01) ==
LOC: RAD 09:21
PROVIDERS: PCP Family Medicine; Visit Provider Student in an Organized Health Care Education/Training Program
DX: M47.817 Spondylosis without myelopathy or radiculopathy, lumbosacral region (principal); M43.8X6 Other specified deforming dorsopathies, lumbar region; M41.50 Other secondary scoliosis, site unspecified; M51.361 Other intervertebral disc degeneration, lumbar region with lower extremity pain only; M43.16 Spondylolisthesis, lumbar region; M48.56XA Collapsed vertebra, not elsewhere classified, lumbar region, initial encounter for fracture; M25.78 Osteophyte, vertebrae
CPT/HCPCS: 72114